=== PATIENT | male | born 1950 | race Caucasian/White ===

== ENCOUNTER 2016-07-29 18:45 | Inpatient (IN) | payer OTHER ==
[~2016-07-29] VITALS: Ht 167.6 cm; Wt 59.0 kg
[~2016-07-29 18:45] MED LIST: CEPH-368 PO; CHOL1CRY3 PO; CYCL-259 PO; DIVA500T2 PO; FLUO20CA19 PO; HYDR50CA PO; LEVE500T53 PO; MELO-190 PO; OMEP-110 PO; OXYC-302 PO; PRAZ5CAP2 PO; QUET400T4 PO; [UNRECOGNIZED DRUG - OTHER] PO
[2016-07-29] MEDS ORDERED: SODIUM CHLORIDE 0.9% 1,000ML IVBOLUS ONE (19:00)
[2016-07-29] MEDS ORDERED: HYDROmorphone 1 MG/ML, 1ML ONE ×2 (19:00→21:37)
[2016-07-29] MEDS ORDERED: LORazepam 2 MG/ML, 1ML IVPush ONE (19:00)
[2016-07-29] MEDS ORDERED: LORazepam 2 MG/ML, 1ML ONE (19:00)
[2016-07-29] MEDS: HYDROmorphone 1 MG/ML, 1ML IVPush PRN ×2 (19:04→21:59)
[2016-07-29 19:54] LABS: BLOOD UREA NITROGEN 11 mg/dL (7-18)
[2016-07-29] MEDS ORDERED: SODIUM CHLORIDE FLUSH 10ML SYR IVF ONE (20:00)
[2016-07-29 20:01] LABS: ASPARTATE AMINO TRANSFERASE 23 U/L (15-37)
[2016-07-29 20:03] LABS: IS PT STATUS REG ER OR PRE ER? YES
[2016-07-30] MEDS ORDERED: LORazepam 2 MG/ML, 1ML IV PRN ×4
[2016-07-30] MEDS ORDERED: ONDANSETRON 2MG/ML, 2ML IV PRN
[2016-07-30] MEDS ORDERED: LEVETIRACETAM 100 MG/ML, 5ML IVPB ONE
[2016-07-30] MEDS ORDERED: HYDROcodone/APAP 5/325 TABLET PO PRN (00:30)
[2016-07-30 01:17] LABS: DAU SCREEN DISCLAIMER
[2016-07-30 01:26] VITALS: BP 144/89
[2016-07-30] MEDS ORDERED: LEVETIRACETAM 500 MG in SODIUM CHLORIDE 0.9% 100 ML IV ONE (01:30)
[2016-07-30 02:00] VITALS: BP 140/88
[2016-07-30] MEDS: HEPARIN 5,000 UNITS/ML, 1ML SQ SCH ×3 (02:19→17:18)
[2016-07-30] MEDS: POTASSIUM CHLORIDE 10 MEQ, MAGNESIUM SULFATE 1 GM, THIAMINE 100 MG, FOLIC ACID 1 MG, MV... IV SCH (04:29)
[2016-07-30 07:06] VITALS: BP 134/75
[2016-07-30 09:47] LABS: BLOOD UREA NITROGEN 11 mg/dL (7-18)
[2016-07-30] MEDS: FLUOXETINE 20 MG CAPSULE PO SCH (09:48)
[2016-07-30] MEDS: LEVETIRACETAM 500 MG TABLET PO SCH ×2 (09:49→21:08)
[2016-07-30] MEDS: DIVALPROEX 500 MG TABLET.DR PO SCH (09:49)
[2016-07-30] MEDS: OMEPRAZOLE 20 MG CAPSULE.DR PO SCH (09:49)
[2016-07-30 12:45] VITALS: BP 137/86
[2016-07-30] MEDS: MORPHINE SULFATE 4 MG/ML, 1ML IVPush PRN ×2 (13:49→16:40)
[2016-07-30 18:52] VITALS: BP 118/79
[2016-07-30] MEDS: PRAZOSIN 5 MG CAPSULE PO SCH ×2 (21:00)
[2016-07-30] MEDS: LORazepam 2 MG/ML, 1ML IV PRN (21:09)
[2016-07-31] MEDS: DIPHENHYDRAMINE 50 MG CAPSULE PO PRN
[2016-07-31] MEDS: LORazepam 2 MG/ML, 1ML IV PRN ×2 (00:43→09:49)
[2016-07-31 01:10] VITALS: BP 95/58
[2016-07-31] MEDS: MORPHINE SULFATE 4 MG/ML, 1ML IVPush PRN (02:53)
[2016-07-31] MEDS: POTASSIUM CHLORIDE 10 MEQ, MAGNESIUM SULFATE 1 GM, THIAMINE 100 MG, FOLIC ACID 1 MG, MV... IV SCH (04:34)
[2016-07-31 05:30] LABS: BLOOD UREA NITROGEN 15 mg/dL (7-18)
[2016-07-31 08:45] VITALS: BP 106/71
[2016-07-31] MEDS: FLUOXETINE 20 MG CAPSULE PO SCH (09:34)
[2016-07-31] MEDS: LEVETIRACETAM 500 MG TABLET PO SCH ×2 (09:34→20:33)
[2016-07-31] MEDS: OMEPRAZOLE 20 MG CAPSULE.DR PO SCH (09:34)
[2016-07-31] MEDS: DIVALPROEX 500 MG TABLET.DR PO SCH (09:35)
[2016-07-31] MEDS: HEPARIN 5,000 UNITS/ML, 1ML SQ SCH ×3 (09:35→16:22)
[2016-07-31 12:41] VITALS: BP 103/69
[2016-07-31] MEDS ORDERED: LORazepam 1MG TABLET PO PRN (14:00)
[2016-07-31 20:00] VITALS: BP 107/63
[2016-07-31] MEDS: PRAZOSIN 5 MG CAPSULE PO SCH (20:32)
[2016-08-01] MEDS: HEPARIN 5,000 UNITS/ML, 1ML SQ SCH ×3 (00:01→18:44)
[2016-08-01 01:55] VITALS: BP 103/60
[2016-08-01] MEDS: POTASSIUM CHLORIDE 10 MEQ, MAGNESIUM SULFATE 1 GM, THIAMINE 100 MG, FOLIC ACID 1 MG, MV... IV SCH (05:15)
[2016-08-01] MEDS ORDERED: MAGNESIUM SULFATE PMX 2GM/50ML 50 ML IV ONE (08:30)
[2016-08-01] MEDS ORDERED: POTASSIUM CHLORIDE 20 MEQ TAB.ER.PRT PO ONE (08:30)
[2016-08-01 08:47] VITALS: BP 110/69
[2016-08-01] MEDS: KETOROLAC 30 MG/1 ML IVPush PRN ×2 (08:51→18:44)
[2016-08-01] MEDS: FLUOXETINE 20 MG CAPSULE PO SCH (10:33)
[2016-08-01] MEDS: DIVALPROEX 500 MG TABLET.DR PO SCH (10:34)
[2016-08-01] MEDS: LEVETIRACETAM 500 MG TABLET PO SCH ×2 (10:34→22:23)
[2016-08-01] MEDS: OMEPRAZOLE 20 MG CAPSULE.DR PO SCH (10:34)
[2016-08-01] MEDS: HYDROcodone/APAP 10/325 MG TABLET PO PRN ×3 (10:47→20:16)
[2016-08-01] MEDS: LORazepam 0.5MG TABLET PO PRN ×2 (11:56)
[2016-08-01 12:52] VITALS: BP 98/64
[2016-08-01 18:40] VITALS: BP 99/62
[2016-08-01] MEDS: PRAZOSIN 5 MG CAPSULE PO SCH (21:00)
[2016-08-01] MEDS: NICOTINE 21 MG/24 HR PATCH.TD24 TD SCH (22:23)
[2016-08-01] MEDS: DIPHENHYDRAMINE 50 MG CAPSULE PO PRN (22:35)
[2016-08-02 01:08] VITALS: BP 93/62
[2016-08-02] MEDS: HYDROcodone/APAP 10/325 MG TABLET PO PRN ×5 (05:01→22:45)
[2016-08-02] MEDS: HEPARIN 5,000 UNITS/ML, 1ML SQ SCH ×3 (05:01→21:16)
[2016-08-02 09:00] VITALS: BP 95/53
[2016-08-02] MEDS: LEVETIRACETAM 500 MG TABLET PO SCH ×2 (09:21→21:18)
[2016-08-02] MEDS: KETOROLAC 30 MG/1 ML IVPush PRN (09:21)
[2016-08-02] MEDS: DIVALPROEX 500 MG TABLET.DR PO SCH (09:21)
[2016-08-02] MEDS: OMEPRAZOLE 20 MG CAPSULE.DR PO SCH (09:21)
[2016-08-02] MEDS: FLUOXETINE 20 MG CAPSULE PO SCH (09:21)
[2016-08-02 14:05] VITALS: BP 102/64
[2016-08-02] MEDS: DOCUSATE 100 MG CAPSULE PO PRN (14:15)
[2016-08-02 19:19] VITALS: BP 97/55
[2016-08-02] MEDS: PRAZOSIN 5 MG CAPSULE PO SCH (21:00)
[2016-08-02] MEDS: NICOTINE 21 MG/24 HR PATCH.TD24 TD SCH (21:18)
[2016-08-02] MEDS: DIPHENHYDRAMINE 50 MG CAPSULE PO PRN (22:45)
[2016-08-03 01:07] VITALS: BP 97/52
[2016-08-03] MEDS: HYDROcodone/APAP 10/325 MG TABLET PO PRN ×5 (04:57→21:27)
[2016-08-03] MEDS: HEPARIN 5,000 UNITS/ML, 1ML SQ SCH ×3 (04:57→21:20)
[2016-08-03] MEDS: OMEPRAZOLE 20 MG CAPSULE.DR PO SCH (08:36)
[2016-08-03] MEDS: DIVALPROEX 500 MG TABLET.DR PO SCH (08:36)
[2016-08-03] MEDS: FLUOXETINE 20 MG CAPSULE PO SCH (08:37)
[2016-08-03] MEDS: LEVETIRACETAM 500 MG TABLET PO SCH ×2 (08:37→21:19)
[2016-08-03 08:52] VITALS: BP 111/69
[2016-08-03 14:39] VITALS: BP 108/72
[2016-08-03] MEDS: KETOROLAC 30 MG/1 ML IVPush PRN (16:35)
[2016-08-03 19:11] VITALS: BP 99/62
[2016-08-03] MEDS: PRAZOSIN 5 MG CAPSULE PO SCH (21:00)
[2016-08-03] MEDS: NICOTINE 21 MG/24 HR PATCH.TD24 TD SCH (21:20)
[2016-08-04] MEDS: KETOROLAC 30 MG/1 ML IVPush PRN ×3 (00:58→18:17)
[2016-08-04 01:04] VITALS: BP 106/55
[2016-08-04] MEDS: HYDROcodone/APAP 10/325 MG TABLET PO PRN ×5 (05:21→22:06)
[2016-08-04] MEDS: HEPARIN 5,000 UNITS/ML, 1ML SQ SCH ×3 (05:22→22:06)
[2016-08-04 07:34] VITALS: BP 90/52
[2016-08-04] MEDS: FLUOXETINE 20 MG CAPSULE PO SCH (09:12)
[2016-08-04] MEDS: OMEPRAZOLE 20 MG CAPSULE.DR PO SCH (09:16)
[2016-08-04] MEDS: DIVALPROEX 500 MG TABLET.DR PO SCH (09:16)
[2016-08-04] MEDS: LEVETIRACETAM 500 MG TABLET PO SCH ×2 (09:17→20:38)
[2016-08-04 14:38] VITALS: BP 103/62
[2016-08-04 19:26] VITALS: BP 92/53
[2016-08-04] MEDS: PRAZOSIN 5 MG CAPSULE PO SCH (20:38)
[2016-08-04] MEDS: NICOTINE 21 MG/24 HR PATCH.TD24 TD SCH (20:38)
[2016-08-05 01:12] VITALS: BP 92/54
[2016-08-05] MEDS: KETOROLAC 30 MG/1 ML IVPush PRN ×3 (02:11→21:24)
[2016-08-05] MEDS: HYDROcodone/APAP 10/325 MG TABLET PO PRN ×4 (05:54→19:40)
[2016-08-05] MEDS: HEPARIN 5,000 UNITS/ML, 1ML SQ SCH ×3 (05:54→21:29)
[2016-08-05 07:48] VITALS: BP 100/65
[2016-08-05] MEDS: LEVETIRACETAM 500 MG TABLET PO SCH ×2 (09:53→21:26)
[2016-08-05] MEDS: FLUOXETINE 20 MG CAPSULE PO SCH (09:53)
[2016-08-05] MEDS: DIVALPROEX 500 MG TABLET.DR PO SCH (09:54)
[2016-08-05] MEDS: OMEPRAZOLE 20 MG CAPSULE.DR PO SCH (09:54)
[2016-08-05 14:31] VITALS: BP 105/67
[2016-08-05 19:48] VITALS: BP 97/64
[2016-08-05] MEDS: PRAZOSIN 5 MG CAPSULE PO SCH (21:00)
[2016-08-05] MEDS: NICOTINE 21 MG/24 HR PATCH.TD24 TD SCH (21:23)
[2016-08-05] MEDS: DIPHENHYDRAMINE 50 MG CAPSULE PO PRN (21:27)
[2016-08-06 03:55] VITALS: BP 99/62
[2016-08-06] MEDS: KETOROLAC 30 MG/1 ML IVPush PRN (04:50)
[2016-08-06] MEDS: HYDROcodone/APAP 10/325 MG TABLET PO PRN ×5 (04:50→22:40)
[2016-08-06] MEDS: HEPARIN 5,000 UNITS/ML, 1ML SQ SCH ×3 (04:52→22:42)
[2016-08-06 08:00] VITALS: BP 101/57
[2016-08-06] MEDS: LEVETIRACETAM 500 MG TABLET PO SCH ×2 (09:21→22:41)
[2016-08-06] MEDS: OMEPRAZOLE 20 MG CAPSULE.DR PO SCH (09:21)
[2016-08-06] MEDS: FLUOXETINE 20 MG CAPSULE PO SCH (09:21)
[2016-08-06] MEDS: DIVALPROEX 500 MG TABLET.DR PO SCH (09:22)
[2016-08-06] MEDS: DOCUSATE 100 MG CAPSULE PO PRN (09:22)
[2016-08-06 14:00] VITALS: BP 110/71
[2016-08-06 19:18] VITALS: BP 100/61
[2016-08-06] MEDS: PRAZOSIN 5 MG CAPSULE PO SCH (21:00)
[2016-08-06] MEDS: NICOTINE 21 MG/24 HR PATCH.TD24 TD SCH (22:40)
[2016-08-06] MEDS: DIPHENHYDRAMINE 50 MG CAPSULE PO PRN (22:41)
[2016-08-07 02:07] VITALS: BP 109/64
[2016-08-07] MEDS: HEPARIN 5,000 UNITS/ML, 1ML SQ SCH ×3 (04:39→22:15)
[2016-08-07] MEDS: HYDROcodone/APAP 10/325 MG TABLET PO PRN ×4 (04:39→18:13)
[2016-08-07 08:00] VITALS: BP 108/68
[2016-08-07] MEDS: LEVETIRACETAM 500 MG TABLET PO SCH ×2 (08:39→22:15)
[2016-08-07] MEDS: FLUOXETINE 20 MG CAPSULE PO SCH (08:39)
[2016-08-07] MEDS: OMEPRAZOLE 20 MG CAPSULE.DR PO SCH (08:39)
[2016-08-07] MEDS: DOCUSATE 100 MG CAPSULE PO PRN (08:40)
[2016-08-07] MEDS: DIVALPROEX 500 MG TABLET.DR PO SCH (08:40)
[2016-08-07] MEDS ORDERED: POLYETHYLENE GLYCOL 17 GM PACKET ONE (13:59)
[2016-08-07 14:00] VITALS: BP 100/66
[2016-08-07] MEDS ORDERED: LACTULOSE 20 GM/30 ML UDC PO PRN (14:00)
[2016-08-07] MEDS ORDERED: POLYETHYLENE GLYCOL 17 GM PACKET PO PRN (14:00)
[2016-08-07] MEDS ORDERED: LORazepam 1MG TABLET ONE (16:04)
[2016-08-07] MEDS: LORazepam 0.5MG TABLET PO PRN (16:10)
[2016-08-07] MEDS ORDERED: MORPHINE SULFATE 4 MG/ML, 1ML ONE (17:16)
[2016-08-07] MEDS: morphine SULFATE 10 MG/ML, 1ML IVPush PRN ×2 (17:22→22:09)
[2016-08-07] MEDS ORDERED: LORazepam 0.5MG TABLET PO PRN (19:00)
[2016-08-07 20:56] VITALS: BP 100/61
[2016-08-07] MEDS: NICOTINE 21 MG/24 HR PATCH.TD24 TD SCH (22:14)
[2016-08-07] MEDS: PRAZOSIN 5 MG CAPSULE PO SCH (22:15)
[2016-08-08] MEDS: HYDROcodone/APAP 10/325 MG TABLET PO PRN ×4 (02:31→20:35)
[2016-08-08 03:47] VITALS: BP 96/55
[2016-08-08] MEDS: morphine SULFATE 10 MG/ML, 1ML IVPush PRN ×3 (05:28→15:21)
[2016-08-08] MEDS: HEPARIN 5,000 UNITS/ML, 1ML SQ SCH ×3 (05:29→21:36)
[2016-08-08] MEDS: DIVALPROEX 500 MG TABLET.DR PO SCH (08:30)
[2016-08-08] MEDS: FLUOXETINE 20 MG CAPSULE PO SCH (08:30)
[2016-08-08] MEDS: OMEPRAZOLE 20 MG CAPSULE.DR PO SCH (08:30)
[2016-08-08] MEDS: DOCUSATE 100 MG CAPSULE PO PRN (08:30)
[2016-08-08] MEDS: LEVETIRACETAM 500 MG TABLET PO SCH ×2 (08:30→21:36)
[2016-08-08 08:39] VITALS: BP 114/64
[2016-08-08] MEDS ORDERED: DIPHENHYDRAMINE 25 MG CAPSULE PO PRN (11:30)
[2016-08-08] MEDS ORDERED: MORPHINE SULFATE 4 MG/ML, 1ML ONE (15:17)
[2016-08-08 15:20] VITALS: BP 118/75
[2016-08-08 18:56] VITALS: BP 115/71
[2016-08-08 19:08] VITALS: BP 115/71
[2016-08-08] MEDS: PRAZOSIN 5 MG CAPSULE PO SCH (21:00)
[2016-08-08] MEDS: NICOTINE 21 MG/24 HR PATCH.TD24 TD SCH (21:36)
[2016-08-09 01:41] VITALS: BP 97/65
[2016-08-09] MEDS: HEPARIN 5,000 UNITS/ML, 1ML SQ SCH ×2 (04:41→13:00)
[2016-08-09] MEDS: HYDROcodone/APAP 10/325 MG TABLET PO PRN (05:55)
[2016-08-09 06:56] VITALS: BP 139/63
[2016-08-09] MEDS ORDERED: NICO1PAT5 TD (08:37)
[2016-08-09] MEDS ORDERED: POLY17PO5 PO (08:37)
[2016-08-09] MEDS: OMEPRAZOLE 20 MG CAPSULE.DR PO SCH (08:47)
[2016-08-09] MEDS: FLUOXETINE 20 MG CAPSULE PO SCH (08:47)
[2016-08-09] MEDS: DIVALPROEX 500 MG TABLET.DR PO SCH (08:47)
[2016-08-09] MEDS: LEVETIRACETAM 500 MG TABLET PO SCH (08:47)
== END 2016-08-09 13:45 | disposition home or self-care (01) | DRG 895 ==
LOC: ED 21:39 → EDIP 21:44 → 4WST 07-30 01:03
PROVIDERS: ADMIT Internal Medicine; ATTEND Internal Medicine
PROC: 2W38X1Z Immobilization of Right Upper Extremity using Splint (ICD-10-PCS; principal; 2016-07-29)
PROC: HZ34ZZZ Individual Counseling for Substance Abuse Treatment, Interpersonal (ICD-10-PCS; 2016-07-29)
PROC: HZ2ZZZZ Detoxification Services for Substance Abuse Treatment (ICD-10-PCS; 2016-07-29)
DX: F10.229 Alcohol dependence with intoxication, unspecified (principal); F32.3 Major depressive disorder, single episode, severe with psychotic features; S42.211A Unspecified displaced fracture of surgical neck of right humerus, initial encounter for closed fracture; S52.611A Displaced fracture of right ulna styloid process, initial encounter for closed fracture; S52.501A Unspecified fracture of the lower end of right radius, initial encounter for closed fracture; F10.239 Alcohol dependence with withdrawal, unspecified; F10.27 Alcohol dependence with alcohol-induced persisting dementia; F17.210 Nicotine dependence, cigarettes, uncomplicated; F43.9 Reaction to severe stress, unspecified; D72.829 Elevated white blood cell count, unspecified; G40.909 Epilepsy, unspecified, not intractable, without status epilepticus; G89.11 Acute pain due to trauma; G93.9 Disorder of brain, unspecified; J32.9 Chronic sinusitis, unspecified; M46.90 Unspecified inflammatory spondylopathy, site unspecified; S09.90XA Unspecified injury of head, initial encounter; W18.30XA Fall on same level, unspecified, initial encounter; Z80.1 Family history of malignant neoplasm of trachea, bronchus and lung; Z83.3 Family history of diabetes mellitus; Z88.6 Allergy status to analgesic agent; Z71.41 Alcohol abuse counseling and surveillance of alcoholic
CPT/HCPCS: 29105; 36415; 70450; 71010; 72125; 80048; 80053; 80307; 82542; 83735; 83880; 84100; 84484; 85025; 85610; 85730; 93005; 96361; 96374; 96375; J1170; J1644; J1885; J1953; J3411; J3475; J3480; J2060; J2270; J7030; Q0163

== ENCOUNTER 2016-08-18 12:20 | Day surgery (SDC) | payer OTHER ==
[~2016-08-18] VITALS: Ht 166.4 cm; Wt 52.0 kg
[~2016-08-18 12:20] MED LIST changes: +BUPIVACAINE/PF 0.5% ONE; +NICO1PAT5 TD; +POLY17PO5 PO
[2016-08-18 12:57] VITALS: BP 128/80
[2016-08-18] MEDS ORDERED: LACTATED RINGERS 1,000 ML IV SCH (13:10)
[2016-08-18] MEDS ORDERED: MIDAZOLAM 1 MG/ML, 2ML ONE (14:37)
[2016-08-18] MEDS ORDERED: FENTANYL PF 250 MCG/5ML ONE (14:37)
[2016-08-18] MEDS ORDERED: LIDOCAINE/PF 1%, 30ML ONE (14:51)
[2016-08-18] MEDS ORDERED: BUPIVACAINE/PF 0.5% ONE (14:51)
[2016-08-18] MEDS ORDERED: PROPOFOL 10 MG/ML, 20ML ONE (15:57)
[2016-08-18] MEDS ORDERED: ONDANSETRON 2MG/ML, 2ML ONE (15:57)
[2016-08-18] MEDS ORDERED: DEXAMETHASONE 4 MG/ML, 1ML ONE (15:57)
[2016-08-18] MEDS ORDERED: CEFAZOLIN 1,000 MG ONE (15:57)
[2016-08-18] MEDS ORDERED: OXYcodone 5 MG/5 ML ORAL.SOL UDC ONE (16:56)
[2016-08-18] MEDS ORDERED: ACETAMINOPHEN 650 MG/20.3 ML UDC ONE (16:56)
[2016-08-18] MEDS ORDERED: HYDROmorphone 1 MG/ML, 1ML ONE (16:59)
[2016-08-18] MEDS ORDERED: OXYcodone 5 MG/5 ML ORAL.SOL UDC PO PRN (17:00)
[2016-08-18] MEDS ORDERED: ACETAMINOPHEN 325 MG TABLET PO PRN (17:00)
[2016-08-18] MEDS ORDERED: FENTANYL PF 100 MCG/2ML IV PRN (17:00)
[2016-08-18] MEDS ORDERED: ALBUTEROL/IPRATROPIUM 2.5MG/0.5MG, 3 ML NPPB PRN (17:00)
[2016-08-18] MEDS ORDERED: MIDAZOLAM 1 MG/ML, 2ML IV PRN (17:00)
[2016-08-18] MEDS ORDERED: ONDANSETRON 2MG/ML, 2ML IVPush PRN (17:00)
[2016-08-18] MEDS ORDERED: PROMETHAZINE 25 MG/ML, 1ML IV PRN (17:00)
[2016-08-18] MEDS ORDERED: LABETALOL 5MG/ML, 20ML IV PRN (17:00)
[2016-08-18] MEDS ORDERED: hydrALAzine 20 MG/ML, 1ML IV PRN (17:00)
[2016-08-18] MEDS ORDERED: HYDROmorphone 1 MG/ML, 1ML IV PRN (17:00)
[2016-08-18] MEDS ORDERED: MEPERIDINE/PF 25MG/0.5ML IVPush PRN (17:00)
== END 2016-08-18 20:44 | disposition short-term general hospital (02) ==
LOC: OUT 12:20 → 4NOR 17:46 → OUT 20:44
PROVIDERS: ATTEND Orthopaedic Surgery
DX: Z47.2 Encounter for removal of internal fixation device (principal); J44.9 Chronic obstructive pulmonary disease, unspecified; K21.9 Gastro-esophageal reflux disease without esophagitis; Z87.39 Personal history of other diseases of the musculoskeletal system and connective tissue; Z88.5 Allergy status to narcotic agent; Z98.890 Other specified postprocedural states
CPT/HCPCS: 20694; 27635; J0690; J1100; J1170; J2250; J2405; J2704; J3010; J3490; J7120

== ENCOUNTER 2017-09-08 09:57 | Inpatient (IN) | payer OTHER ==
[~2017-09-08] VITALS: Ht 165.1 cm; Wt 54.0 kg
[~2017-09-08 09:57] MED LIST changes: -BUPIVACAINE/PF 0.5% ONE; -MELO-190 PO; +MELO7.5T31 PO; +NICO-487 TD; -NICO1PAT5 TD
[2017-09-08] MEDS ORDERED: SODIUM CHLORIDE FLUSH 10ML SYR IVF ONE (10:30)
[2017-09-08] MEDS ORDERED: PLEASE ENTER HEIGHT AND WEIGHT MC SCH (10:30)
[2017-09-08] MEDS ORDERED: MORPHINE SULFATE 4 MG/ML, 1ML IVPush ONE ×2 (10:30→12:30)
[2017-09-08 10:43] LABS: ALANINE AMINOTRANSFERASE 16 U/L (12-78); ALBUMIN 3.4 g/dL (3.4-5.0); ANION GAP 9 mmol/L (5-15); CALCIUM 9.1 mg/dL (8.5-10.1); CHLORIDE 107 mmol/L (98-107); CREATININE 0.75 mg/dL (0.7-1.3)
[2017-09-08 10:45] LABS: ALKALINE PHOSPHATASE 53 U/L (45-117); BILIRUBIN,TOTAL 0.5 mg/dL (0.2-1.0); TOTAL PROTEIN 6.9 g/dL (6.4-8.2)
[2017-09-08 10:49] LABS: BASOPHILS # (AUTO) 0.01 x10^3/uL (0-0.1); BASOPHILS % (AUTO) 0 % (0-1); EOSINOPHILS # (AUTO) 0.06 x10^3/uL (0-0.4); EOSINOPHILS % (AUTO) 1 % (1-7); LYMPHOCYTES # (AUTO) 2.62 x10^3/uL (1-3.4); LYMPHOCYTES % (AUTO) 39 % (22-44); MD NO; MEAN CORPUSCULAR HEMOGLOBIN 34.6 pg (27.5-34.5); MEAN CORPUSCULAR HGB CONC 34.5 g/dL (33.2-36.2); MEAN CORPUSCULAR VOLUME 100.4 fL (81-97); MEAN PLATELET VOLUME 9.2 fL (7.4-10.4); MONOCYTES # (AUTO) 0.74 x10^3/uL (0.2-0.8); MONOCYTES % (AUTO) 11 % (2-9); NEUTROPHILS # (AUTO) 3.38 x10^3/uL (1.8-6.8); NEUTROPHILS % (AUTO) 50 % (42-75); PLATELET COUNT 213 x10^3/uL (130-400); RED BLOOD COUNT 4.34 x10^6/uL (4.38-5.82); RED CELL DISTRIBUTION WIDTH 15.1 % (9.4-14.8)
[2017-09-08 11:05] LABS: INTERNATIONAL NORMALIZED RATIO 1.08 (0.93-1.1); PROTHROMBIN TIME 11.1 Seconds (9.6-11.5)
[2017-09-08] MEDS ORDERED: LIDOCAINE TOPICAL (11:09)
[2017-09-08] MEDS ORDERED: MORP15TA PO (11:09)
[2017-09-08] MEDS ORDERED: OXYC5CAP2 PO (11:09)
[2017-09-08] MEDS ORDERED: FLUO20CA8 PO (11:09)
[2017-09-08] MEDS ORDERED: LEVE500T8 PO (11:09)
[2017-09-08] MEDS ORDERED: DIVA-61 PO ×2 (11:09)
[2017-09-08] MEDS ORDERED: CLOTRIMAZOLE CREAM (11:09)
[2017-09-08] MEDS ORDERED: CHOL200040 PO (11:09)
[2017-09-08] MEDS ORDERED: IPRATROPIUM INH (11:09)
[2017-09-08] MEDS ORDERED: ACET325T26 PO (11:09)
[2017-09-08] MEDS ORDERED: ALBUTEROL INH (11:09)
[2017-09-08] MEDS ORDERED: MORPHINE SULFATE 4 MG/ML, 1ML ONE ×2 (11:37→11:57)
[2017-09-08] MEDS ORDERED: GUAIFENESIN/COD200MG-20MG/10ML LIQUID PO PRN (12:30)
[2017-09-08] MEDS ORDERED: ONDANSETRON ODT 4 MG PO PRN (12:30)
[2017-09-08] MEDS ORDERED: ONDANSETRON 2MG/ML, 2ML IVPush PRN (12:30)
[2017-09-08] MEDS ORDERED: ENALAPRILAT 1.25 MG/ML, 2ML IVPush PRN (12:30)
[2017-09-08] MEDS ORDERED: BISACODYL 10 MG SUPP PR PRN (12:30)
[2017-09-08] MEDS ORDERED: ACETAMINOPHEN 325 MG TABLET PO PRN (12:30)
[2017-09-08] MEDS ORDERED: NICOTINE 21 MG/24 HR PATCH.TD24 TD SCH (13:00)
[2017-09-08] MEDS: ACETAMINOPHEN 325 MG TABLET PO SCH ×3 (13:24→21:03)
[2017-09-08] MEDS: HEPARIN 5,000 UNITS/ML, 1ML SQ SCH ×2 (13:25→21:04)
[2017-09-08] MEDS: NICOTINE 21 MG/24 HR PATCH.TD24 TD SCH (13:25)
[2017-09-08] MEDS: SODIUM CHLORIDE 0.9% 1,000 ML IV SCH ×2 (13:25→22:48)
[2017-09-08 13:40] VITALS: BP 124/82
[2017-09-08] MEDS: ALBUTEROL/IPRATROPIUM 2.5MG/0.5MG, 3 ML NPPB SCH ×2 (15:00→18:28)
[2017-09-08 15:10] LABS: MICROSCOPIC NOT IND
[2017-09-08 15:22] LABS: CULTURE INDICATED? NO
[2017-09-08] MEDS ORDERED: ALBUTEROL/IPRATROPIUM 2.5MG/0.5MG, 3 ML HHN SCH (16:00)
[2017-09-08] MEDS: OXYcodone IR 5MG TABLET PO SCH ×2 (16:26→21:03)
[2017-09-08 19:41] VITALS: BP 100/56
[2017-09-08] MEDS ORDERED: DOCUSATE 100 MG CAPSULE PO PRN (21:00)
[2017-09-08] MEDS: morphine SULFATE 15 MG TAB.IR PO SCH (21:03)
[2017-09-08] MEDS: DIVALPROEX 500 MG TABLET.DR PO SCH (21:03)
[2017-09-08] MEDS: LEVETIRACETAM 500 MG TABLET PO SCH (21:03)
[2017-09-09] MEDS: ACETAMINOPHEN 325 MG TABLET PO SCH ×6 (01:09→20:54)
[2017-09-09 01:49] VITALS: BP 99/52
[2017-09-09] MEDS: HEPARIN 5,000 UNITS/ML, 1ML SQ SCH ×3 (05:25→20:55)
[2017-09-09 05:51] LABS: MEAN CORPUSCULAR HEMOGLOBIN 33.2 pg (27.5-34.5); MEAN CORPUSCULAR HGB CONC 32.9 g/dL (33.2-36.2); MEAN CORPUSCULAR VOLUME 101.1 fL (81-97); MEAN PLATELET VOLUME 9.6 fL (7.4-10.4); PLATELET COUNT 177 x10^3/uL (130-400); RED BLOOD COUNT 3.93 x10^6/uL (4.38-5.82); RED CELL DISTRIBUTION WIDTH 14.7 % (9.4-14.8)
[2017-09-09 05:54] LABS: ANION GAP 6 mmol/L (5-15); CALCIUM 8.8 mg/dL (8.5-10.1); CHLORIDE 108 mmol/L (98-107); CREATININE 0.77 mg/dL (0.7-1.3)
[2017-09-09 06:20] LABS: MD YES
[2017-09-09 06:22] LABS: EOS#(MANUAL) 0.06 x10^3/uL (0.0-0.4); EOS% (MANUAL) 1 % (1-7); LYMPH#(MANUAL) 4.07 x10^3/uL (1-3.4); LYMPHS% (MANUAL) 69 % (22-44); MONOS#(MANUAL) 0.59 x10^3/uL (0.3-2.7); MONOS% (MANUAL) 10 % (2-9); SEG#(MANUAL) 1.18 x10^3/uL (1.8-6.8); SEGS% (MANUAL) 20 % (42-75)
[2017-09-09 06:26] LABS: <PLATELET ESTIMATE> ADEQUATE; <PLT MORPHOLOGY> NORMAL PLT MORPH
[2017-09-09] MEDS: ALBUTEROL/IPRATROPIUM 2.5MG/0.5MG, 3 ML NPPB SCH ×4 (06:44→19:15)
[2017-09-09 07:01] VITALS: BP 88/49
[2017-09-09] MEDS: DIVALPROEX 500 MG TABLET.DR PO SCH ×2 (08:23→20:55)
[2017-09-09] MEDS: LEVETIRACETAM 500 MG TABLET PO SCH ×2 (08:23→20:55)
[2017-09-09] MEDS: FLUOXETINE HCL 20 MG CAPSULE PO SCH (08:23)
[2017-09-09] MEDS: morphine SULFATE 15 MG TAB.IR PO SCH ×2 (08:24→18:10)
[2017-09-09] MEDS: CHOLECALCIFEROL 1,000 UNIT TABLET PO SCH (08:24)
[2017-09-09] MEDS: SENNA/DOCUSATE TABLET PO SCH (08:24)
[2017-09-09] MEDS: OXYcodone IR 5MG TABLET PO SCH ×3 (08:25→20:55)
[2017-09-09] MEDS: SODIUM CHLORIDE 0.9% 1,000 ML IV SCH ×2 (10:54→20:59)
[2017-09-09 13:48] VITALS: BP 89/52
[2017-09-09] MEDS: NICOTINE 21 MG/24 HR PATCH.TD24 TD SCH (14:38)
[2017-09-09 18:55] VITALS: BP 96/61
[2017-09-10 00:31] VITALS: BP 97/56
[2017-09-10] MEDS: ACETAMINOPHEN 325 MG TABLET PO SCH ×6 (02:31→22:07)
[2017-09-10] MEDS: HEPARIN 5,000 UNITS/ML, 1ML SQ SCH ×3 (06:15→22:06)
[2017-09-10] MEDS: morphine SULFATE 15 MG TAB.IR PO SCH ×2 (06:15→18:27)
[2017-09-10] MEDS: SODIUM CHLORIDE 0.9% 1,000 ML IV SCH ×3 (06:15→22:00)
[2017-09-10 07:15] VITALS: BP 123/71
[2017-09-10] MEDS: ALBUTEROL/IPRATROPIUM 2.5MG/0.5MG, 3 ML NPPB SCH ×4 (07:40→22:15)
[2017-09-10] MEDS: DIVALPROEX 500 MG TABLET.DR PO SCH ×2 (08:32→22:07)
[2017-09-10] MEDS: FLUOXETINE HCL 20 MG CAPSULE PO SCH (08:32)
[2017-09-10] MEDS: LEVETIRACETAM 500 MG TABLET PO SCH ×2 (08:32→22:07)
[2017-09-10] MEDS: OXYcodone IR 5MG TABLET PO SCH ×3 (08:33→22:07)
[2017-09-10] MEDS: CHOLECALCIFEROL 1,000 UNIT TABLET PO SCH (08:33)
[2017-09-10] MEDS: SENNA/DOCUSATE TABLET PO SCH (08:33)
[2017-09-10 13:10] VITALS: BP 94/64
[2017-09-10] MEDS: NICOTINE 21 MG/24 HR PATCH.TD24 TD SCH (13:12)
[2017-09-10] MEDS ORDERED: HALOPERIDOL 5 MG/ML ONE (17:42)
[2017-09-10] MEDS ORDERED: HALOPERIDOL 5 MG/ML IM ONE (18:00)
[2017-09-10 20:05] VITALS: BP 100/65
[2017-09-11 02:30] VITALS: BP 119/72
[2017-09-11] MEDS: ACETAMINOPHEN 325 MG TABLET PO SCH ×5 (03:22→20:43)
[2017-09-11] MEDS: HEPARIN 5,000 UNITS/ML, 1ML SQ SCH ×3 (06:17→20:44)
[2017-09-11] MEDS: morphine SULFATE 15 MG TAB.IR PO SCH ×2 (06:17→18:15)
[2017-09-11 07:15] VITALS: BP 120/70
[2017-09-11] MEDS: ALBUTEROL/IPRATROPIUM 2.5MG/0.5MG, 3 ML NPPB SCH ×4 (07:15→19:06)
[2017-09-11] MEDS: CHOLECALCIFEROL 1,000 UNIT TABLET PO SCH (08:32)
[2017-09-11] MEDS: DIVALPROEX 500 MG TABLET.DR PO SCH ×2 (08:32→20:43)
[2017-09-11] MEDS: FLUOXETINE HCL 20 MG CAPSULE PO SCH (08:32)
[2017-09-11] MEDS: OXYcodone IR 5MG TABLET PO SCH ×3 (08:32→20:43)
[2017-09-11] MEDS: LEVETIRACETAM 500 MG TABLET PO SCH ×2 (08:32→20:43)
[2017-09-11] MEDS: SENNA/DOCUSATE TABLET PO SCH (08:33)
[2017-09-11 13:14] VITALS: BP 109/64
[2017-09-11] MEDS: NICOTINE 21 MG/24 HR PATCH.TD24 TD SCH (14:47)
[2017-09-11 20:00] VITALS: BP 103/6
[2017-09-12 01:03] VITALS: BP 102/64
[2017-09-12] MEDS: ACETAMINOPHEN 325 MG TABLET PO SCH ×7 (02:13→22:55)
[2017-09-12] MEDS: morphine SULFATE 15 MG TAB.IR PO SCH ×2 (05:23→18:10)
[2017-09-12] MEDS: HEPARIN 5,000 UNITS/ML, 1ML SQ SCH ×3 (05:23→20:13)
[2017-09-12] MEDS: ALBUTEROL/IPRATROPIUM 2.5MG/0.5MG, 3 ML NPPB SCH ×4 (06:31→19:43)
[2017-09-12 07:15] VITALS: BP 97/57
[2017-09-12] MEDS: LEVETIRACETAM 500 MG TABLET PO SCH ×2 (08:04→19:53)
[2017-09-12] MEDS: DIVALPROEX 500 MG TABLET.DR PO SCH ×2 (08:04→19:53)
[2017-09-12] MEDS: OXYcodone IR 5MG TABLET PO SCH ×3 (08:05→20:13)
[2017-09-12] MEDS: SENNA/DOCUSATE TABLET PO SCH (08:05)
[2017-09-12] MEDS: CHOLECALCIFEROL 1,000 UNIT TABLET PO SCH (08:05)
[2017-09-12] MEDS: FLUOXETINE HCL 20 MG CAPSULE PO SCH (08:05)
[2017-09-12] MEDS: NICOTINE 21 MG/24 HR PATCH.TD24 TD SCH (12:59)
[2017-09-12 13:36] VITALS: BP 93/66
[2017-09-12 19:05] VITALS: BP 96/62
[2017-09-13 01:25] VITALS: BP 96/59
[2017-09-13] MEDS: ACETAMINOPHEN 325 MG TABLET PO SCH ×6 (03:03→23:30)
[2017-09-13] MEDS: HEPARIN 5,000 UNITS/ML, 1ML SQ SCH ×3 (04:47→20:49)
[2017-09-13] MEDS: morphine SULFATE 15 MG TAB.IR PO SCH ×2 (06:04→17:19)
[2017-09-13] MEDS: ALBUTEROL/IPRATROPIUM 2.5MG/0.5MG, 3 ML NPPB SCH ×4 (06:11→19:06)
[2017-09-13 07:35] VITALS: BP 97/62
[2017-09-13] MEDS: DIVALPROEX 500 MG TABLET.DR PO SCH ×2 (07:50→20:48)
[2017-09-13] MEDS: CHOLECALCIFEROL 1,000 UNIT TABLET PO SCH (07:50)
[2017-09-13] MEDS: LEVETIRACETAM 500 MG TABLET PO SCH ×2 (07:50→20:48)
[2017-09-13] MEDS: FLUOXETINE HCL 20 MG CAPSULE PO SCH (07:51)
[2017-09-13] MEDS: OXYcodone IR 5MG TABLET PO SCH ×3 (07:51→20:48)
[2017-09-13] MEDS: SENNA/DOCUSATE TABLET PO SCH (07:54)
[2017-09-13] MEDS: NICOTINE 21 MG/24 HR PATCH.TD24 TD SCH (13:30)
[2017-09-13 15:05] VITALS: BP 103/67
[2017-09-13 20:38] VITALS: BP 95/61
[2017-09-14 01:40] VITALS: BP 96/63
[2017-09-14] MEDS: ACETAMINOPHEN 325 MG TABLET PO SCH ×6 (02:51→23:00)
[2017-09-14] MEDS: HEPARIN 5,000 UNITS/ML, 1ML SQ SCH ×3 (05:10→21:23)
[2017-09-14] MEDS: morphine SULFATE 15 MG TAB.IR PO SCH ×2 (05:10→17:30)
[2017-09-14] MEDS: ALBUTEROL/IPRATROPIUM 2.5MG/0.5MG, 3 ML NPPB SCH ×4 (06:58→19:33)
[2017-09-14 07:57] VITALS: BP 104/68
[2017-09-14] MEDS: LEVETIRACETAM 500 MG TABLET PO SCH ×2 (08:56→21:23)
[2017-09-14] MEDS: SENNA/DOCUSATE TABLET PO SCH (08:56)
[2017-09-14] MEDS: DIVALPROEX 500 MG TABLET.DR PO SCH ×2 (08:56→21:24)
[2017-09-14] MEDS: OXYcodone IR 5MG TABLET PO SCH ×3 (08:57→21:24)
[2017-09-14] MEDS: CHOLECALCIFEROL 1,000 UNIT TABLET PO SCH (08:57)
[2017-09-14] MEDS: FLUOXETINE HCL 20 MG CAPSULE PO SCH (08:57)
[2017-09-14] MEDS: NICOTINE 21 MG/24 HR PATCH.TD24 TD SCH (12:09)
[2017-09-14 14:13] VITALS: BP 96/65
[2017-09-14 19:59] VITALS: BP 102/66
[2017-09-15 00:42] VITALS: BP 102/68
[2017-09-15] MEDS: ACETAMINOPHEN 325 MG TABLET PO SCH ×3 (03:00→10:48)
[2017-09-15] MEDS: morphine SULFATE 15 MG TAB.IR PO SCH (05:39)
[2017-09-15] MEDS: HEPARIN 5,000 UNITS/ML, 1ML SQ SCH ×2 (05:39→12:21)
[2017-09-15] MEDS: ALBUTEROL/IPRATROPIUM 2.5MG/0.5MG, 3 ML NPPB SCH ×2 (06:57→10:43)
[2017-09-15 07:04] VITALS: BP 97/63
[2017-09-15] MEDS: FLUOXETINE HCL 20 MG CAPSULE PO SCH (08:07)
[2017-09-15] MEDS: OXYcodone IR 5MG TABLET PO SCH (08:07)
[2017-09-15] MEDS: CHOLECALCIFEROL 1,000 UNIT TABLET PO SCH (08:07)
[2017-09-15] MEDS: SENNA/DOCUSATE TABLET PO SCH (08:07)
[2017-09-15] MEDS: LEVETIRACETAM 500 MG TABLET PO SCH (08:07)
[2017-09-15] MEDS: DIVALPROEX 500 MG TABLET.DR PO SCH (08:07)
[2017-09-15] MEDS ORDERED: FLUO20CA8 PO (11:13)
[2017-09-15] MEDS ORDERED: LEVE500T8 PO (11:13)
[2017-09-15] MEDS ORDERED: DIVA-61 PO ×2 (11:13)
[2017-09-15] MEDS ORDERED: CHOL200040 PO (11:13)
[2017-09-15] MEDS ORDERED: ACET325T26 PO (11:13)
[2017-09-15] MEDS: NICOTINE 21 MG/24 HR PATCH.TD24 TD SCH (12:21)
== END 2017-09-15 13:51 | disposition home health service (06) | DRG 923 ==
LOC: ED 11:14 → EDIP 11:38 → 4WST 12:40 → DCLOUNGE 09-15 13:40
PROVIDERS: ADMIT Internal Medicine; ATTEND Internal Medicine
DX: T67.5XXA Heat exhaustion, unspecified, initial encounter (principal); F10.20 Alcohol dependence, uncomplicated; F32.9 Major depressive disorder, single episode, unspecified; S20.211A Contusion of right front wall of thorax, initial encounter; G40.909 Epilepsy, unspecified, not intractable, without status epilepticus; W18.30XA Fall on same level, unspecified, initial encounter; Y93.01 Activity, walking, marching and hiking; K74.60 Unspecified cirrhosis of liver; G89.29 Other chronic pain; M25.571 Pain in right ankle and joints of right foot; M25.572 Pain in left ankle and joints of left foot; F12.90 Cannabis use, unspecified, uncomplicated; Z66 Do not resuscitate; R29.6 Repeated falls; Y90.9 Presence of alcohol in blood, level not specified; G25.0 Essential tremor; F43.10 Post-traumatic stress disorder, unspecified; K59.00 Constipation, unspecified; E55.9 Vitamin D deficiency, unspecified; Z80.1 Family history of malignant neoplasm of trachea, bronchus and lung; Z98.1 Arthrodesis status; Y92.488 Other paved roadways as the place of occurrence of the external cause; Y99.8 Other external cause status; Z83.3 Family history of diabetes mellitus; Z88.5 Allergy status to narcotic agent; Z87.891 Personal history of nicotine dependence; Z81.1 Family history of alcohol abuse and dependence
CPT/HCPCS: 36415; 71101; 73610; 99285; J7620; 70450; 80048; 80053; 81003; 83036; 83735; 84100; 84443; 85025; 85610; 85730; 93005; 93306; 93880; 94640; 96372; 96374; 96376; J1644; J1630; J7030

== ENCOUNTER 2017-11-04 17:54 | Inpatient (IN) | payer OTHER ==
[~2017-11-04] VITALS: Ht 165.1 cm; Wt 62.0 kg
[~2017-11-04 17:54] MED LIST changes: +ACET325T26 PO; +ALBUTEROL INH; +CEFAZOLIN 1,000 MG ONE; +CHOL200040 PO; +CLOTRIMAZOLE CREAM; +DEXAMETHASONE 4 MG/ML, 1ML ONE; +DIVA-61 PO; +FLUO20CA8 PO; +IPRATROPIUM INH; +LEVE500T8 PO; +LIDOCAINE TOPICAL; +MORP15TA PO; +ONDANSETRON 2MG/ML, 2ML ONE; +OXYC5CAP2 PO; +PROPOFOL 10 MG/ML, 20ML ONE; +SUCCINYLCHOLINE 20 MG/ML, 10ML ONE
[2017-11-04] MEDS ORDERED: ONDANSETRON ODT 4 MG PO ONE (18:30)
[2017-11-04] MEDS ORDERED: MORPHINE SULFATE 4 MG/ML, 1ML IVPush PRN (18:30)
[2017-11-04] MEDS ORDERED: ONDANSETRON 2MG/ML, 2ML ONE (18:43)
[2017-11-04] MEDS ORDERED: MORPHINE SULFATE 4 MG/ML, 1ML ONE (18:43)
[2017-11-04] MEDS ORDERED: SODIUM CHLORIDE FLUSH 10ML SYR IVF ONE (19:30)
[2017-11-04 20:03] LABS: BASOPHILS # (AUTO) 0.02 x10^3/uL (0-0.1); BASOPHILS % (AUTO) 0 % (0-1); EOSINOPHILS # (AUTO) 0.07 x10^3/uL (0-0.4); EOSINOPHILS % (AUTO) 1 % (1-7); LYMPHOCYTES # (AUTO) 2.58 x10^3/uL (1-3.4); LYMPHOCYTES % (AUTO) 18 % (22-44); MD NO; MEAN CORPUSCULAR HEMOGLOBIN 34.9 pg (27.5-34.5); MEAN CORPUSCULAR HGB CONC 34.1 g/dL (33.2-36.2); MEAN CORPUSCULAR VOLUME 102.2 fL (81-97); MEAN PLATELET VOLUME 8.9 fL (7.4-10.4); MONOCYTES # (AUTO) 0.74 x10^3/uL (0.2-0.8); MONOCYTES % (AUTO) 5 % (2-9); NEUTROPHILS # (AUTO) 10.74 x10^3/uL (1.8-6.8); NEUTROPHILS % (AUTO) 76 % (42-75); PLATELET COUNT 199 x10^3/uL (130-400); RED BLOOD COUNT 3.63 x10^6/uL (4.38-5.82); RED CELL DISTRIBUTION WIDTH 15.3 % (9.4-14.8)
[2017-11-04 20:12] LABS: ALBUMIN 3.1 g/dL (3.4-5.0); ANION GAP 11 mmol/L (5-15); CALCIUM 8.2 mg/dL (8.5-10.1); CHLORIDE 103 mmol/L (98-107); CREATININE 0.75 mg/dL (0.7-1.3); INTERNATIONAL NORMALIZED RATIO 1.08 (0.93-1.1); PROTHROMBIN TIME 11.2 Seconds (9.6-11.5)
[2017-11-04] MEDS ORDERED: ACETAMINOPHEN 325 MG TABLET PO PRN (20:30)
[2017-11-04] MEDS ORDERED: BISACODYL 10 MG SUPP PR PRN (20:30)
[2017-11-04] MEDS ORDERED: POLYETHYLENE GLYCOL 17 GM PACKET PO PRN (20:30)
[2017-11-04] MEDS ORDERED: ONDANSETRON ODT 4 MG PO PRN (20:30)
[2017-11-04] MEDS: SODIUM CHLORIDE FLUSH 10ML SYR IVF SCH (21:08)
[2017-11-04] MEDS: morphine SULFATE 10 MG/ML, 1ML IVPush PRN (21:08)
[2017-11-04] MEDS: LEVETIRACETAM 500 MG TABLET PO SCH (22:19)
[2017-11-04] MEDS: DIVALPROEX 500 MG TABLET.DR PO SCH (22:19)
[2017-11-05] MEDS: morphine SULFATE 10 MG/ML, 1ML IVPush PRN ×6 (00:01→20:45)
[2017-11-05] MEDS ORDERED: MIDAZOLAM 1 MG/ML, 2ML ONE (00:33)
[2017-11-05] MEDS ORDERED: FENTANYL PF 250 MCG/5ML ONE (00:33)
[2017-11-05] MEDS ORDERED: ROCURONIUM 10MG/ML,5ML ONE (00:36)
[2017-11-05 01:16] LABS: MICROSCOPIC NOT IND
[2017-11-05 01:20] LABS: CULTURE INDICATED? NO
[2017-11-05] MEDS ORDERED: MORPHINE SULFATE 4 MG/ML, 1ML IVPush PRN (01:30)
[2017-11-05] MEDS ORDERED: OXYcodone 5 MG/5 ML ORAL.SOL UDC PO PRN (01:30)
[2017-11-05] MEDS ORDERED: PROMETHAZINE 25 MG/ML, 1ML IV PRN (01:30)
[2017-11-05] MEDS ORDERED: FENTANYL PF 100 MCG/2ML IV PRN (01:30)
[2017-11-05] MEDS ORDERED: HYDROmorphone 1 MG/ML, 1ML IV PRN (01:30)
[2017-11-05] MEDS ORDERED: hydrALAzine 20 MG/ML, 1ML IV PRN (01:30)
[2017-11-05] MEDS ORDERED: ONDANSETRON 2MG/ML, 2ML IV PRN (01:30)
[2017-11-05] MEDS ORDERED: LORazepam 2 MG/ML, 1ML IVPush PRN (01:30)
[2017-11-05] MEDS ORDERED: MEPERIDINE/PF 25MG/0.5ML IVPush PRN (01:30)
[2017-11-05] MEDS ORDERED: ALBUTEROL SULFATE 2.5 MG/3 ML NPPB PRN (01:30)
[2017-11-05] MEDS ORDERED: PROMETHAZINE 12.5 MG SUPP PR PRN (01:30)
[2017-11-05] MEDS ORDERED: EPHEDRINE 50 MG/ML, 1ML IVPush PRN (01:30)
[2017-11-05] MEDS ORDERED: MIDAZOLAM 1 MG/ML, 2ML IV PRN (01:30)
[2017-11-05] MEDS ORDERED: LABETALOL 5MG/ML, 20ML IV PRN (01:30)
[2017-11-05] MEDS ORDERED: ONDANSETRON ODT 8 MG PO PRN (01:30)
[2017-11-05] MEDS ORDERED: FENTANYL PF 100 MCG/2ML ONE (02:25)
[2017-11-05] MEDS ORDERED: MEPERIDINE/PF 50 MG/ML ONE (02:25)
[2017-11-05] MEDS ORDERED: OXYcodone 5 MG/5 ML ORAL.SOL UDC ONE (02:26)
[2017-11-05 03:48] VITALS: BP 130/77
[2017-11-05 04:43] LABS: BASOPHILS # (AUTO) 0.02 x10^3/uL (0-0.1); BASOPHILS % (AUTO) 0 % (0-1); EOSINOPHILS # (AUTO) 0.01 x10^3/uL (0-0.4); EOSINOPHILS % (AUTO) 0 % (1-7); LYMPHOCYTES # (AUTO) 1.07 x10^3/uL (1-3.4); LYMPHOCYTES % (AUTO) 7 % (22-44); MD NO; MEAN CORPUSCULAR HEMOGLOBIN 34.2 pg (27.5-34.5); MEAN CORPUSCULAR VOLUME 100.5 fL (81-97); MONOCYTES # (AUTO) 0.77 x10^3/uL (0.2-0.8); MONOCYTES % (AUTO) 5 % (2-9); NEUTROPHILS # (AUTO) 13.83 x10^3/uL (1.8-6.8); NEUTROPHILS % (AUTO) 88 % (42-75); PLATELET COUNT 189 x10^3/uL (130-400); RED CELL DISTRIBUTION WIDTH 15.2 % (9.4-14.8)
[2017-11-05 04:56] LABS: CHLORIDE 102 mmol/L (98-107)
[2017-11-05 05:06] LABS: ALANINE AMINOTRANSFERASE 16 U/L (12-78); ALBUMIN 3.4 g/dL (3.4-5.0); ALKALINE PHOSPHATASE 57 U/L (45-117); ANION GAP 9 mmol/L (5-15); BILIRUBIN,TOTAL 0.4 mg/dL (0.2-1.0); CALCIUM 8.3 mg/dL (8.5-10.1); CREATININE 0.74 mg/dL (0.7-1.3); TOTAL PROTEIN 6.5 g/dL (6.4-8.2)
[2017-11-05 07:25] VITALS: BP 138/78
[2017-11-05] MEDS: CEFAZOLIN PMX 1GM/50ML 50 ML IVPB SCH ×2 (08:33→17:36)
[2017-11-05] MEDS: FLUOXETINE HCL 20 MG CAPSULE PO SCH (08:34)
[2017-11-05] MEDS: SENNA/DOCUSATE TABLET PO SCH (08:34)
[2017-11-05] MEDS: CHOLECALCIFEROL 1,000 UNIT TABLET PO SCH (08:34)
[2017-11-05] MEDS: DIVALPROEX 500 MG TABLET.DR PO SCH ×2 (08:34→20:38)
[2017-11-05] MEDS: LEVETIRACETAM 500 MG TABLET PO SCH ×2 (08:34→20:38)
[2017-11-05] MEDS: SODIUM CHLORIDE FLUSH 10ML SYR IVF SCH ×2 (08:34→20:39)
[2017-11-05 13:15] VITALS: BP 110/85
[2017-11-05] MEDS: ENOXAPARIN 40 MG/0.4 ML SQ SCH (17:36)
[2017-11-05] MEDS: THIAMINE 100MG TABLET PO SCH (17:36)
[2017-11-05 19:55] VITALS: BP 107/70
[2017-11-06 00:19] VITALS: BP 110/78
[2017-11-06] MEDS: morphine SULFATE 10 MG/ML, 1ML IVPush PRN ×4 (00:57→18:48)
[2017-11-06] MEDS: CEFAZOLIN PMX 1GM/50ML 50 ML IVPB SCH ×3 (00:57→17:24)
[2017-11-06 06:49] VITALS: BP 113/78
[2017-11-06] MEDS: SENNA/DOCUSATE TABLET PO SCH (08:42)
[2017-11-06] MEDS: DIVALPROEX 500 MG TABLET.DR PO SCH ×2 (08:42→20:13)
[2017-11-06] MEDS: FLUOXETINE HCL 20 MG CAPSULE PO SCH (08:43)
[2017-11-06] MEDS: THIAMINE 100MG TABLET PO SCH (08:43)
[2017-11-06] MEDS: CHOLECALCIFEROL 1,000 UNIT TABLET PO SCH (08:43)
[2017-11-06] MEDS: SODIUM CHLORIDE FLUSH 10ML SYR IVF SCH ×2 (08:46→20:14)
[2017-11-06] MEDS: LEVETIRACETAM 500 MG TABLET PO SCH ×2 (08:51→20:14)
[2017-11-06] MEDS: POLYETHYLENE GLYCOL 17 GM PACKET PO SCH (09:54)
[2017-11-06 13:43] VITALS: BP_SYST 92; BP_SYST 94; BP_DIAS 59; BP_DIAS 64
[2017-11-06] MEDS: ENOXAPARIN 40 MG/0.4 ML SQ SCH (17:24)
[2017-11-06 18:41] VITALS: BP 147/73
[2017-11-07] VITALS (7 sets, daily range): BP systolic 91–110; BP diastolic 61–74
[2017-11-07] MEDS: morphine SULFATE 10 MG/ML, 1ML IVPush PRN ×7 (00:42→23:12)
[2017-11-07] MEDS: CEFAZOLIN PMX 1GM/50ML 50 ML IVPB SCH ×3 (00:45→17:41)
[2017-11-07 06:12] LABS: MEAN CORPUSCULAR HEMOGLOBIN 35.5 pg (27.5-34.5); MEAN CORPUSCULAR HGB CONC 35.1 g/dL (33.2-36.2); MEAN CORPUSCULAR VOLUME 101.1 fL (81-97); MEAN PLATELET VOLUME 9.3 fL (7.4-10.4); PLATELET COUNT 133 x10^3/uL (130-400); RED BLOOD COUNT 3.03 x10^6/uL (4.38-5.82); RED CELL DISTRIBUTION WIDTH 14.7 % (9.4-14.8)
[2017-11-07 06:34] LABS: BASOPHILS # (AUTO) 0.04 x10^3/uL (0-0.1); BASOPHILS % (AUTO) 0 % (0-1); EOSINOPHILS # (AUTO) 0.03 x10^3/uL (0-0.4); EOSINOPHILS % (AUTO) 0 % (1-7); LYMPHOCYTES # (AUTO) 2.51 x10^3/uL (1-3.4); LYMPHOCYTES % (AUTO) 19 % (22-44); MD SCAN; MONOCYTES # (AUTO) 1.67 x10^3/uL (0.2-0.8); MONOCYTES % (AUTO) 12 % (2-9); NEUTROPHILS # (AUTO) 9.15 x10^3/uL (1.8-6.8); NEUTROPHILS % (AUTO) 68 % (42-75)
[2017-11-07] MEDS: POLYETHYLENE GLYCOL 17 GM PACKET PO SCH (09:00)
[2017-11-07] MEDS: SENNA/DOCUSATE TABLET PO SCH (09:00)
[2017-11-07] MEDS: DIVALPROEX 500 MG TABLET.DR PO SCH ×2 (09:00→20:47)
[2017-11-07] MEDS: FLUOXETINE HCL 20 MG CAPSULE PO SCH (09:00)
[2017-11-07] MEDS: LEVETIRACETAM 500 MG TABLET PO SCH ×2 (09:00→20:47)
[2017-11-07] MEDS: SODIUM CHLORIDE FLUSH 10ML SYR IVF SCH ×2 (09:00→20:47)
[2017-11-07] MEDS: THIAMINE 100MG TABLET PO SCH (09:00)
[2017-11-07] MEDS: CHOLECALCIFEROL 1,000 UNIT TABLET PO SCH (09:00)
[2017-11-07] MEDS ORDERED: FENTANYL PF 100 MCG/2ML ONE (09:23)
[2017-11-07] MEDS ORDERED: PROPOFOL 10 MG/ML, 20ML ONE (09:24)
[2017-11-07] MEDS ORDERED: MIDAZOLAM 1 MG/ML, 2ML ONE (09:35)
[2017-11-07] MEDS ORDERED: ONDANSETRON 2MG/ML, 2ML ONE (09:37)
[2017-11-07] MEDS ORDERED: EPHEDRINE 50 MG/ML, 1ML ONE (09:37)
[2017-11-07] MEDS ORDERED: FENTANYL PF 100 MCG/2ML IV PRN (10:30)
[2017-11-07] MEDS ORDERED: ALBUTEROL SULFATE 2.5 MG/3 ML NPPB PRN (10:30)
[2017-11-07] MEDS ORDERED: LABETALOL 5MG/ML, 20ML IV PRN (10:30)
[2017-11-07] MEDS ORDERED: ONDANSETRON ODT 8 MG PO PRN (10:30)
[2017-11-07] MEDS ORDERED: PROMETHAZINE 25 MG/ML, 1ML IV PRN (10:30)
[2017-11-07] MEDS ORDERED: HALOPERIDOL 5 MG/ML IV PRN (10:30)
[2017-11-07] MEDS ORDERED: EPHEDRINE 50 MG/ML, 1ML IVPush PRN (10:30)
[2017-11-07] MEDS ORDERED: ONDANSETRON 2MG/ML, 2ML IV PRN (10:30)
[2017-11-07] MEDS ORDERED: PROMETHAZINE 12.5 MG SUPP PR PRN (10:30)
[2017-11-07] MEDS ORDERED: MEPERIDINE/PF 25MG/0.5ML IVPush PRN (10:30)
[2017-11-07] MEDS ORDERED: OXYcodone 5 MG/5 ML ORAL.SOL UDC PO PRN (10:30)
[2017-11-07] MEDS ORDERED: hydrALAzine 20 MG/ML, 1ML IV PRN (10:30)
[2017-11-07] MEDS ORDERED: LORazepam 2 MG/ML, 1ML IVPush PRN (10:30)
[2017-11-07] MEDS ORDERED: MORPHINE SULFATE 4 MG/ML, 1ML IVPush PRN (10:30)
[2017-11-07] MEDS ORDERED: HYDROmorphone 1 MG/ML, 1ML IV PRN (10:30)
[2017-11-07] MEDS ORDERED: MIDAZOLAM 1 MG/ML, 2ML IV PRN (10:30)
[2017-11-07] MEDS: LACTULOSE 20 GM/30 ML UDC PO SCH (14:01)
[2017-11-07] MEDS: ENOXAPARIN 40 MG/0.4 ML SQ SCH (16:41)
[2017-11-07] MEDS ORDERED: LACTATED RINGERS 500 ML IVBOLUS ONE (17:00)
[2017-11-07] MEDS: POTASSIUM CHLORIDE 20 MEQ in SODIUM CHLORIDE 0.45% 1,000 ML IV SCH (20:55)
[2017-11-08] MEDS: CEFAZOLIN PMX 1GM/50ML 50 ML IVPB SCH ×2 (01:46→10:14)
[2017-11-08 02:49] VITALS: BP 104/69
[2017-11-08] MEDS: morphine SULFATE 10 MG/ML, 1ML IVPush PRN ×2 (03:32→08:01)
[2017-11-08] MEDS: POTASSIUM CHLORIDE 20 MEQ in SODIUM CHLORIDE 0.45% 1,000 ML IV SCH ×2 (06:23→16:21)
[2017-11-08 07:01] VITALS: BP 107/68
[2017-11-08] MEDS: CHOLECALCIFEROL 1,000 UNIT TABLET PO SCH (09:00)
[2017-11-08] MEDS: THIAMINE 100MG TABLET PO SCH (09:00)
[2017-11-08] MEDS: SODIUM CHLORIDE FLUSH 10ML SYR IVF SCH ×2 (09:00→20:54)
[2017-11-08] MEDS: LACTULOSE 20 GM/30 ML UDC PO SCH (10:11)
[2017-11-08] MEDS: LEVETIRACETAM 500 MG TABLET PO SCH ×2 (10:12→20:53)
[2017-11-08] MEDS: DIVALPROEX 500 MG TABLET.DR PO SCH ×2 (10:12→20:53)
[2017-11-08] MEDS: SENNA/DOCUSATE TABLET PO SCH (10:12)
[2017-11-08] MEDS: FLUOXETINE HCL 20 MG CAPSULE PO SCH (10:13)
[2017-11-08] MEDS ORDERED: morphine SULFATE 10 MG/ML, 1ML IVPush PRN (11:30)
[2017-11-08 12:56] VITALS: BP 103/62
[2017-11-08] MEDS: OXYcodone IR 5MG TABLET PO PRN ×2 (14:21→16:22)
[2017-11-08] MEDS: ENOXAPARIN 40 MG/0.4 ML SQ SCH (16:21)
[2017-11-08] MEDS ORDERED: morphine SULFATE 10 MG/ML, 1ML ONE (18:09)
[2017-11-08] MEDS: MORPHINE SULFATE 4 MG/ML, 1ML IVPush PRN (18:11)
[2017-11-08 19:30] VITALS: BP 108/74
[2017-11-09 01:24] VITALS: BP 108/68
[2017-11-09] MEDS: OXYcodone IR 5MG TABLET PO PRN ×5 (01:38→21:17)
[2017-11-09] MEDS: POTASSIUM CHLORIDE 20 MEQ in SODIUM CHLORIDE 0.45% 1,000 ML IV SCH ×3 (03:06→21:00)
[2017-11-09] MEDS: MORPHINE SULFATE 4 MG/ML, 1ML IVPush PRN (05:21)
[2017-11-09 07:00] VITALS: BP 111/71
[2017-11-09] MEDS: THIAMINE 100MG TABLET PO SCH (09:00)
[2017-11-09] MEDS: CHOLECALCIFEROL 1,000 UNIT TABLET PO SCH (09:00)
[2017-11-09] MEDS: SODIUM CHLORIDE FLUSH 10ML SYR IVF SCH ×2 (09:00→21:00)
[2017-11-09] MEDS: SENNA/DOCUSATE TABLET PO SCH (10:09)
[2017-11-09] MEDS: DIVALPROEX 500 MG TABLET.DR PO SCH ×2 (10:09→21:17)
[2017-11-09] MEDS: LEVETIRACETAM 500 MG TABLET PO SCH ×2 (10:09→21:16)
[2017-11-09] MEDS: LACTULOSE 20 GM/30 ML UDC PO SCH (10:10)
[2017-11-09] MEDS: FLUOXETINE HCL 20 MG CAPSULE PO SCH (10:10)
[2017-11-09] MEDS: GABAPENTIN 100 MG CAPSULE PO SCH ×3 (10:30→21:17)
[2017-11-09 13:05] VITALS: BP 106/65
[2017-11-09] MEDS: ALBUTEROL/IPRATROPIUM 2.5MG/0.5MG, 3 ML NPPB SCH ×2 (13:41→19:41)
[2017-11-09] MEDS: ENOXAPARIN 40 MG/0.4 ML SQ SCH (16:49)
[2017-11-09 19:36] VITALS: BP 106/59
[2017-11-10 01:21] VITALS: BP 103/70
[2017-11-10] MEDS: POTASSIUM CHLORIDE 20 MEQ in SODIUM CHLORIDE 0.45% 1,000 ML IV SCH (04:32)
[2017-11-10] MEDS: OXYcodone IR 5MG TABLET PO PRN ×3 (04:36→16:39)
[2017-11-10 05:12] LABS: CREATININE 0.65 mg/dL (0.7-1.3)
[2017-11-10 05:26] LABS: MEAN CORPUSCULAR HEMOGLOBIN 34.7 pg (27.5-34.5); MEAN CORPUSCULAR HGB CONC 33.9 g/dL (33.2-36.2); MEAN CORPUSCULAR VOLUME 102.2 fL (81-97); MEAN PLATELET VOLUME 8.6 fL (7.4-10.4); PLATELET COUNT 176 x10^3/uL (130-400); RED BLOOD COUNT 2.71 x10^6/uL (4.38-5.82); RED CELL DISTRIBUTION WIDTH 14.6 % (9.4-14.8)
[2017-11-10 05:49] LABS: MD YES
[2017-11-10 05:51] LABS: BAND#(MANUAL) 0.55 x10^3/uL; BANDS%(MANUAL) 6 % (0-7); LYMPHS% (MANUAL) 37 % (22-44); METAMYELOCYTES# (MANUAL) 0.09 x10^3/uL (0-0); METAMYELOCYTES% (MANUAL) 1 % (0-1); MONOS#(MANUAL) 0.18 x10^3/uL (0.3-2.7); MONOS% (MANUAL) 2 % (2-9); SEG#(MANUAL) 4.97 x10^3/uL (1.8-6.8); SEGS% (MANUAL) 54 % (42-75)
[2017-11-10 05:52] LABS: ANISOCYTOSIS 1+; HYPOCHROMIA 1+; POLYCHROMASIA 1+; TARGET CELLS 1+
[2017-11-10 05:53] LABS: <PLATELET ESTIMATE> ADEQUATE; <PLT MORPHOLOGY> NORMAL PLT MORPH
[2017-11-10] MEDS: ALBUTEROL/IPRATROPIUM 2.5MG/0.5MG, 3 ML NPPB SCH ×4 (06:45→19:34)
[2017-11-10 07:14] VITALS: BP 102/67
[2017-11-10] MEDS: SODIUM CHLORIDE FLUSH 10ML SYR IVF SCH ×2 (09:00→21:00)
[2017-11-10] MEDS: SENNA/DOCUSATE TABLET PO SCH (09:00)
[2017-11-10] MEDS: CHOLECALCIFEROL 1,000 UNIT TABLET PO SCH (09:13)
[2017-11-10] MEDS: LEVETIRACETAM 500 MG TABLET PO SCH ×2 (09:13→21:14)
[2017-11-10] MEDS: FLUOXETINE HCL 20 MG CAPSULE PO SCH (09:14)
[2017-11-10] MEDS: DIVALPROEX 500 MG TABLET.DR PO SCH ×2 (09:14→21:14)
[2017-11-10] MEDS: THIAMINE 100MG TABLET PO SCH (09:14)
[2017-11-10] MEDS: GABAPENTIN 100 MG CAPSULE PO SCH ×3 (09:14→21:14)
[2017-11-10] MEDS: LACTULOSE 20 GM/30 ML UDC PO SCH (09:14)
[2017-11-10] MEDS ORDERED: LORazepam 2 MG/ML, 1ML IVPush ONE (10:45)
[2017-11-10] MEDS ORDERED: LORazepam 2 MG/ML, 1ML ONE (10:47)
[2017-11-10] MEDS ORDERED: morphine SULFATE 10 MG/ML, 1ML IVPush ONE (10:50)
[2017-11-10] MEDS ORDERED: LORazepam 2 MG/ML, 1ML IVPush PRN (11:30)
[2017-11-10 11:56] LABS: TROPONIN I < 0.015 ng/mL (0.000-0.045)
[2017-11-10 12:11] LABS: MD YES; MEAN CORPUSCULAR HEMOGLOBIN 35.2 pg (27.5-34.5); MEAN CORPUSCULAR HGB CONC 34.4 g/dL (33.2-36.2); MEAN CORPUSCULAR VOLUME 102.2 fL (81-97); MEAN PLATELET VOLUME 8.5 fL (7.4-10.4); PLATELET COUNT 201 x10^3/uL (130-400); RED BLOOD COUNT 2.83 x10^6/uL (4.38-5.82); RED CELL DISTRIBUTION WIDTH 14.5 % (9.4-14.8)
[2017-11-10 12:13] VITALS: BP 110/70
[2017-11-10 12:14] LABS: BANDS%(MANUAL) 1 % (0-7); BASOS% (MANUAL) 1 % (0-1); LYMPH#(MANUAL) 3.16 x10^3/uL (1-3.4); LYMPHS% (MANUAL) 31 % (22-44); MONOS#(MANUAL) 1.22 x10^3/uL (0.3-2.7); MONOS% (MANUAL) 12 % (2-9); SEG#(MANUAL) 5.61 x10^3/uL (1.8-6.8); SEGS% (MANUAL) 55 % (42-75)
[2017-11-10 12:15] LABS: <PLATELET ESTIMATE> ADEQUATE; <PLT MORPHOLOGY> NORMAL PLT MORPH
[2017-11-10 12:41] LABS: ALANINE AMINOTRANSFERASE 10 U/L (12-78); ALBUMIN 2.7 g/dL (3.4-5.0); ANION GAP 11 mmol/L (5-15); CALCIUM 8.8 mg/dL (8.5-10.1); CHLORIDE 101 mmol/L (98-107); CREATININE 0.73 mg/dL (0.7-1.3)
[2017-11-10 12:43] LABS: ALKALINE PHOSPHATASE 51 U/L (45-117); BILIRUBIN,TOTAL 0.5 mg/dL (0.2-1.0); TOTAL PROTEIN 6.6 g/dL (6.4-8.2)
[2017-11-10 13:37] VITALS: BP 111/72
[2017-11-10] MEDS: SODIUM CHLORIDE 0.9% 1,000 ML IV SCH (16:39)
[2017-11-10] MEDS: ENOXAPARIN 40 MG/0.4 ML SQ SCH (16:39)
[2017-11-10] MEDS ORDERED: GADOBUTROL 7.5 MMOL/7.5 ML PFS ONE (17:59)
[2017-11-10] MEDS ORDERED: OMNIPAQUE 350 MG/ML, 100ML BOTTLE ONE (18:41)
[2017-11-10 18:52] VITALS: BP 110/74
[2017-11-10 19:25] LABS: TROPONIN I < 0.015 ng/mL (0.000-0.045)
[2017-11-11 00:09] VITALS: BP 108/72
[2017-11-11] MEDS: SODIUM CHLORIDE 0.9% 1,000 ML IV SCH ×2 (01:31→12:54)
[2017-11-11 05:45] LABS: MEAN CORPUSCULAR HEMOGLOBIN 35.8 pg (27.5-34.5); MEAN CORPUSCULAR HGB CONC 34.7 g/dL (33.2-36.2); MEAN CORPUSCULAR VOLUME 103.1 fL (81-97); MEAN PLATELET VOLUME 8.3 fL (7.4-10.4); PLATELET COUNT 194 x10^3/uL (130-400); RED BLOOD COUNT 2.56 x10^6/uL (4.38-5.82); RED CELL DISTRIBUTION WIDTH 14.7 % (9.4-14.8)
[2017-11-11 05:54] LABS: ALBUMIN 2.3 g/dL (3.4-5.0); ANION GAP 7 mmol/L (5-15); CALCIUM 8.4 mg/dL (8.5-10.1); CHLORIDE 105 mmol/L (98-107)
[2017-11-11 06:00] LABS: ALANINE AMINOTRANSFERASE 10 U/L (12-78); ALKALINE PHOSPHATASE 43 U/L (45-117); BILIRUBIN,TOTAL 0.6 mg/dL (0.2-1.0); CREATINE KINASE, TOTAL 82 U/L (39-308); CREATININE 0.46 mg/dL (0.7-1.3); TOTAL PROTEIN 5.9 g/dL (6.4-8.2)
[2017-11-11 06:18] LABS: MD YES
[2017-11-11 06:48] LABS: <PLATELET ESTIMATE> ADEQUATE; <PLT MORPHOLOGY> NORMAL PLT MORPH; <RBC MORPHOLOGY> NORMAL; BAND#(MANUAL) 0.15 x10^3/uL; BANDS%(MANUAL) 2 % (0-7); EOS#(MANUAL) 0.15 x10^3/uL (0.0-0.4); EOS% (MANUAL) 2 % (1-7); LYMPH#(MANUAL) 4.14 x10^3/uL (1-3.4); LYMPHS% (MANUAL) 56 % (22-44); MONOS#(MANUAL) 0.44 x10^3/uL (0.3-2.7); MONOS% (MANUAL) 6 % (2-9); SEG#(MANUAL) 2.52 x10^3/uL (1.8-6.8); SEGS% (MANUAL) 34 % (42-75)
[2017-11-11] MEDS: ALBUTEROL/IPRATROPIUM 2.5MG/0.5MG, 3 ML NPPB SCH ×4 (07:00→19:21)
[2017-11-11 08:05] VITALS: BP 113/70
[2017-11-11] MEDS: LACTULOSE 20 GM/30 ML UDC PO SCH (09:45)
[2017-11-11] MEDS: THIAMINE 100MG TABLET PO SCH (09:45)
[2017-11-11] MEDS: CHOLECALCIFEROL 1,000 UNIT TABLET PO SCH (09:45)
[2017-11-11] MEDS: LEVETIRACETAM 500 MG TABLET PO SCH ×2 (09:45→21:14)
[2017-11-11] MEDS: GABAPENTIN 100 MG CAPSULE PO SCH ×3 (09:45→21:14)
[2017-11-11] MEDS: SENNA/DOCUSATE TABLET PO SCH (09:46)
[2017-11-11] MEDS: FLUOXETINE HCL 20 MG CAPSULE PO SCH (09:46)
[2017-11-11] MEDS: DIVALPROEX 500 MG TABLET.DR PO SCH ×2 (09:46→21:15)
[2017-11-11] MEDS: SODIUM CHLORIDE FLUSH 10ML SYR IVF SCH ×2 (09:48→22:47)
[2017-11-11 12:37] VITALS: BP 112/71
[2017-11-11] MEDS: OXYcodone IR 5MG TABLET PO PRN (13:10)
[2017-11-11] MEDS: ENOXAPARIN 40 MG/0.4 ML SQ SCH (16:51)
[2017-11-11 19:55] VITALS: BP 106/64
[2017-11-11 21:13] VITALS: BP 111/71
[2017-11-12] VITALS: BP 105/61
[2017-11-12] MEDS: OXYcodone IR 5MG TABLET PO PRN ×3 (00:07→17:43)
[2017-11-12] MEDS: SODIUM CHLORIDE 0.9% 1,000 ML IV SCH ×2 (04:48→21:36)
[2017-11-12 05:10] LABS: ALBUMIN 2.2 g/dL (3.4-5.0); ANION GAP 6 mmol/L (5-15); CALCIUM 8.4 mg/dL (8.5-10.1); CHLORIDE 104 mmol/L (98-107); CREATININE 0.49 mg/dL (0.7-1.3)
[2017-11-12] MEDS: ALBUTEROL/IPRATROPIUM 2.5MG/0.5MG, 3 ML NPPB SCH ×4 (07:29→19:20)
[2017-11-12 07:35] VITALS: BP 98/55
[2017-11-12] MEDS: SODIUM CHLORIDE FLUSH 10ML SYR IVF SCH ×2 (08:10→21:00)
[2017-11-12] MEDS: FLUOXETINE HCL 20 MG CAPSULE PO SCH (08:17)
[2017-11-12] MEDS: LEVETIRACETAM 500 MG TABLET PO SCH ×2 (08:18→21:36)
[2017-11-12] MEDS: SENNA/DOCUSATE TABLET PO SCH (08:18)
[2017-11-12] MEDS: GABAPENTIN 100 MG CAPSULE PO SCH ×4 (08:18→22:01)
[2017-11-12] MEDS: CHOLECALCIFEROL 1,000 UNIT TABLET PO SCH (08:18)
[2017-11-12] MEDS: DIVALPROEX 500 MG TABLET.DR PO SCH ×2 (08:19→21:36)
[2017-11-12] MEDS: THIAMINE 100MG TABLET PO SCH (08:19)
[2017-11-12] MEDS: LACTULOSE 20 GM/30 ML UDC PO SCH (08:23)
[2017-11-12 14:49] VITALS: BP 96/56
[2017-11-12] MEDS: ENOXAPARIN 40 MG/0.4 ML SQ SCH ×2 (16:03→16:08)
[2017-11-12 20:04] VITALS: BP 113/70
[2017-11-12] MEDS: TEMAZEPAM 15 MG CAPSULE PO PRN (23:06)
[2017-11-13 04:00] VITALS: BP 93/60
[2017-11-13 07:31] VITALS: BP 99/65
[2017-11-13] MEDS: ALBUTEROL/IPRATROPIUM 2.5MG/0.5MG, 3 ML NPPB SCH ×4 (08:45→19:21)
[2017-11-13] MEDS: DIVALPROEX 500 MG TABLET.DR PO SCH ×2 (09:27→20:42)
[2017-11-13] MEDS: CHOLECALCIFEROL 1,000 UNIT TABLET PO SCH (09:28)
[2017-11-13] MEDS: LACTULOSE 20 GM/30 ML UDC PO SCH (09:29)
[2017-11-13] MEDS: GABAPENTIN 100 MG CAPSULE PO SCH ×3 (09:29→20:42)
[2017-11-13] MEDS: LEVETIRACETAM 500 MG TABLET PO SCH ×2 (09:29→20:42)
[2017-11-13] MEDS: FLUOXETINE HCL 20 MG CAPSULE PO SCH (09:29)
[2017-11-13] MEDS: SENNA/DOCUSATE TABLET PO SCH (09:29)
[2017-11-13] MEDS: THIAMINE 100MG TABLET PO SCH (09:29)
[2017-11-13] MEDS: SODIUM CHLORIDE FLUSH 10ML SYR IVF SCH ×2 (09:30→20:42)
[2017-11-13] MEDS: SODIUM CHLORIDE 0.9% 1,000 ML IV SCH (09:38)
[2017-11-13] MEDS ORDERED: FUROSEMIDE 20 MG/2 ML IV ONE (11:00)
[2017-11-13 13:40] VITALS: BP 100/65
[2017-11-13] MEDS ORDERED: MORPHINE SULFATE 4 MG/ML, 1ML IVPush PRN (14:30)
[2017-11-13] MEDS: OXYcodone IR 5MG TABLET PO PRN (15:59)
[2017-11-13] MEDS: ENOXAPARIN 40 MG/0.4 ML SQ SCH (16:00)
[2017-11-13 18:39] VITALS: BP 98/64
[2017-11-13] MEDS: ATORVASTATIN 40 MG TABLET PO SCH (20:42)
[2017-11-13] MEDS: TEMAZEPAM 15 MG CAPSULE PO PRN (23:04)
[2017-11-14 02:15] VITALS: BP 103/68
[2017-11-14 05:54] LABS: MEAN CORPUSCULAR HEMOGLOBIN 35.2 pg (27.5-34.5); MEAN CORPUSCULAR VOLUME 103.6 fL (81-97); MEAN PLATELET VOLUME 7.9 fL (7.4-10.4); PLATELET COUNT 346 x10^3/uL (130-400); RED CELL DISTRIBUTION WIDTH 14.9 % (9.4-14.8)
[2017-11-14 06:07] LABS: ALBUMIN 2.2 g/dL (3.4-5.0); ANION GAP 5 mmol/L (5-15); CALCIUM 8.1 mg/dL (8.5-10.1); CHLORIDE 104 mmol/L (98-107); CREATININE 0.63 mg/dL (0.7-1.3)
[2017-11-14 06:15] LABS: MD YES
[2017-11-14 06:19] LABS: BAND#(MANUAL) 0.07 x10^3/uL; BANDS%(MANUAL) 1 % (0-7); EOS#(MANUAL) 0.14 x10^3/uL (0.0-0.4); EOS% (MANUAL) 2 % (1-7); LYMPH#(MANUAL) 1.56 x10^3/uL (1-3.4); LYMPHS% (MANUAL) 22 % (22-44); MONOS#(MANUAL) 0.43 x10^3/uL (0.3-2.7); MONOS% (MANUAL) 6 % (2-9); SEGS% (MANUAL) 69 % (42-75)
[2017-11-14 06:23] LABS: POLYCHROMASIA 1+
[2017-11-14 06:24] LABS: <PLATELET ESTIMATE> ADEQUATE; <PLT MORPHOLOGY> NORMAL PLT MORPH
[2017-11-14] MEDS: ALBUTEROL/IPRATROPIUM 2.5MG/0.5MG, 3 ML NPPB SCH ×4 (07:00→18:50)
[2017-11-14 08:55] VITALS: BP 95/62
[2017-11-14] MEDS: SODIUM CHLORIDE FLUSH 10ML SYR IVF SCH ×2 (09:00→21:00)
[2017-11-14] MEDS: CHOLECALCIFEROL 1,000 UNIT TABLET PO SCH (09:01)
[2017-11-14] MEDS: LACTULOSE 20 GM/30 ML UDC PO SCH (09:01)
[2017-11-14] MEDS: THIAMINE 100MG TABLET PO SCH (09:02)
[2017-11-14] MEDS: DIVALPROEX 500 MG TABLET.DR PO SCH ×2 (09:02→21:18)
[2017-11-14] MEDS: LEVETIRACETAM 500 MG TABLET PO SCH ×2 (09:02→21:18)
[2017-11-14] MEDS: SENNA/DOCUSATE TABLET PO SCH (09:03)
[2017-11-14] MEDS: FLUOXETINE HCL 20 MG CAPSULE PO SCH (09:03)
[2017-11-14] MEDS: GABAPENTIN 100 MG CAPSULE PO SCH ×3 (09:03→21:17)
[2017-11-14] MEDS: OXYcodone IR 5MG TABLET PO PRN ×2 (11:22→15:55)
[2017-11-14 12:18] VITALS: BP 99/66
[2017-11-14] MEDS ORDERED: FUROSEMIDE 20 MG/2 ML IV ONE (13:00)
[2017-11-14 20:12] VITALS: BP 102/65
[2017-11-14] MEDS: ATORVASTATIN 40 MG TABLET PO SCH (21:18)
[2017-11-15] MEDS: TEMAZEPAM 15 MG CAPSULE PO PRN (00:10)
[2017-11-15 02:14] VITALS: BP 100/63
[2017-11-15 05:38] LABS: MEAN CORPUSCULAR HEMOGLOBIN 35.5 pg (27.5-34.5); MEAN CORPUSCULAR HGB CONC 34.2 g/dL (33.2-36.2); MEAN CORPUSCULAR VOLUME 103.8 fL (81-97); MEAN PLATELET VOLUME 7.5 fL (7.4-10.4); PLATELET COUNT 465 x10^3/uL (130-400); RED BLOOD COUNT 2.81 x10^6/uL (4.38-5.82)
[2017-11-15 05:42] LABS: ALBUMIN 2.5 g/dL (3.4-5.0); ANION GAP 5 mmol/L (5-15); CALCIUM 8.6 mg/dL (8.5-10.1); CHLORIDE 104 mmol/L (98-107)
[2017-11-15 06:18] LABS: MD YES
[2017-11-15 06:21] LABS: <PLATELET ESTIMATE> INCREASED; <PLT MORPHOLOGY> NORMAL PLT MORPH; ANISOCYTOSIS 1+; EOS#(MANUAL) 0.54 x10^3/uL (0.0-0.4); EOS% (MANUAL) 7 % (1-7); LYMPH#(MANUAL) 1.85 x10^3/uL (1-3.4); LYMPHS% (MANUAL) 24 % (22-44); METAMYELOCYTES# (MANUAL) 0.08 x10^3/uL (0-0); METAMYELOCYTES% (MANUAL) 1 % (0-1); MONOS% (MANUAL) 13 % (2-9); POLYCHROMASIA 1+; SEG#(MANUAL) 4.24 x10^3/uL (1.8-6.8); SEGS% (MANUAL) 55 % (42-75)
[2017-11-15 06:44] VITALS: BP 91/55
[2017-11-15] MEDS: ALBUTEROL/IPRATROPIUM 2.5MG/0.5MG, 3 ML NPPB SCH ×4 (06:55→19:16)
[2017-11-15] MEDS: LACTULOSE 20 GM/30 ML UDC PO SCH (08:47)
[2017-11-15] MEDS: DIVALPROEX 500 MG TABLET.DR PO SCH ×2 (08:47→20:21)
[2017-11-15] MEDS: GABAPENTIN 100 MG CAPSULE PO SCH ×3 (08:47→20:21)
[2017-11-15] MEDS: CHOLECALCIFEROL 1,000 UNIT TABLET PO SCH (08:48)
[2017-11-15] MEDS: FLUOXETINE HCL 20 MG CAPSULE PO SCH (08:48)
[2017-11-15] MEDS: THIAMINE 100MG TABLET PO SCH (08:48)
[2017-11-15] MEDS: LEVETIRACETAM 500 MG TABLET PO SCH ×2 (08:48→20:20)
[2017-11-15] MEDS: SENNA/DOCUSATE TABLET PO SCH (08:48)
[2017-11-15] MEDS: SODIUM CHLORIDE FLUSH 10ML SYR IVF SCH ×2 (09:12→20:21)
[2017-11-15] MEDS: OXYcodone IR 5MG TABLET PO PRN (11:21)
[2017-11-15 13:16] VITALS: BP 92/60
[2017-11-15 19:32] VITALS: BP 101/63
[2017-11-15] MEDS ORDERED: DIPHENHYDRAMINE 25 MG CAPSULE PO PRN (20:00)
[2017-11-15] MEDS: ATORVASTATIN 40 MG TABLET PO SCH (20:21)
[2017-11-16 01:56] VITALS: BP 95/65
[2017-11-16 02:14] VITALS: BP 96/61
[2017-11-16 05:11] VITALS: BP 97/62
[2017-11-16] MEDS: OXYcodone IR 5MG TABLET PO PRN ×3 (05:16→23:55)
[2017-11-16 07:43] VITALS: BP 113/68
[2017-11-16] MEDS: ALBUTEROL/IPRATROPIUM 2.5MG/0.5MG, 3 ML NPPB SCH ×4 (07:55→19:47)
[2017-11-16] MEDS: SENNA/DOCUSATE TABLET PO SCH (09:00)
[2017-11-16] MEDS: DIVALPROEX 500 MG TABLET.DR PO SCH ×2 (09:57→20:42)
[2017-11-16] MEDS: THIAMINE 100MG TABLET PO SCH (09:57)
[2017-11-16] MEDS: SODIUM CHLORIDE FLUSH 10ML SYR IVF SCH ×2 (09:57→20:43)
[2017-11-16] MEDS: LEVETIRACETAM 500 MG TABLET PO SCH ×2 (09:58→20:42)
[2017-11-16] MEDS: GABAPENTIN 100 MG CAPSULE PO SCH ×3 (09:58→20:42)
[2017-11-16] MEDS: FLUOXETINE HCL 20 MG CAPSULE PO SCH (09:58)
[2017-11-16] MEDS: LACTULOSE 20 GM/30 ML UDC PO SCH (09:58)
[2017-11-16] MEDS: CHOLECALCIFEROL 1,000 UNIT TABLET PO SCH (09:58)
[2017-11-16] MEDS: ENOXAPARIN 40 MG/0.4 ML SQ SCH (16:24)
[2017-11-16 17:41] VITALS: BP 120/63
[2017-11-16 20:05] VITALS: BP 100/67
[2017-11-16] MEDS: ATORVASTATIN 40 MG TABLET PO SCH (20:42)
[2017-11-16] MEDS ORDERED: OMNIPAQUE 350 MG/ML, 100ML BOTTLE ONE (23:24)
[2017-11-17 02:54] VITALS: BP 96/67
[2017-11-17 04:57] LABS: BASOPHILS # (AUTO) 0.03 x10^3/uL (0-0.1); BASOPHILS % (AUTO) 1 % (0-1); EOSINOPHILS % (AUTO) 7 % (1-7); LYMPHOCYTES # (AUTO) 2.32 x10^3/uL (1-3.4); LYMPHOCYTES % (AUTO) 32 % (22-44); MD NO; MEAN CORPUSCULAR HEMOGLOBIN 35.1 pg (27.5-34.5); MEAN CORPUSCULAR HGB CONC 33.7 g/dL (33.2-36.2); MEAN CORPUSCULAR VOLUME 104.1 fL (81-97); MEAN PLATELET VOLUME 7.5 fL (7.4-10.4); MONOCYTES # (AUTO) 1.39 x10^3/uL (0.2-0.8); MONOCYTES % (AUTO) 19 % (2-9); NEUTROPHILS % (AUTO) 42 % (42-75); PLATELET COUNT 570 x10^3/uL (130-400); RED BLOOD COUNT 2.88 x10^6/uL (4.38-5.82); RED CELL DISTRIBUTION WIDTH 15.5 % (9.4-14.8)
[2017-11-17 05:05] LABS: ALBUMIN 2.5 g/dL (3.4-5.0); ANION GAP 7 mmol/L (5-15); CALCIUM 8.7 mg/dL (8.5-10.1); CHLORIDE 104 mmol/L (98-107); CREATININE 0.68 mg/dL (0.7-1.3)
[2017-11-17] MEDS: ALBUTEROL/IPRATROPIUM 2.5MG/0.5MG, 3 ML NPPB SCH ×4 (06:46→20:33)
[2017-11-17 07:43] VITALS: BP 187/118
[2017-11-17 07:45] VITALS: BP 103/65
[2017-11-17] MEDS: SENNA/DOCUSATE TABLET PO SCH (09:00)
[2017-11-17] MEDS: GABAPENTIN 100 MG CAPSULE PO SCH ×3 (09:34→21:57)
[2017-11-17] MEDS: LACTULOSE 20 GM/30 ML UDC PO SCH (09:34)
[2017-11-17] MEDS: FUROSEMIDE 40 MG/4 ML IV SCH (09:34)
[2017-11-17] MEDS: DIVALPROEX 500 MG TABLET.DR PO SCH ×2 (09:34→21:57)
[2017-11-17] MEDS: LEVETIRACETAM 500 MG TABLET PO SCH ×2 (09:35→21:57)
[2017-11-17] MEDS: SODIUM CHLORIDE FLUSH 10ML SYR IVF SCH ×2 (09:35→21:00)
[2017-11-17] MEDS: THIAMINE 100MG TABLET PO SCH (09:35)
[2017-11-17] MEDS: FLUOXETINE HCL 20 MG CAPSULE PO SCH (09:36)
[2017-11-17] MEDS: CHOLECALCIFEROL 1,000 UNIT TABLET PO SCH (09:36)
[2017-11-17 12:31] VITALS: BP 99/60
[2017-11-17 13:02] VITALS: BP 100/68
[2017-11-17] MEDS: ENOXAPARIN 40 MG/0.4 ML SQ SCH (15:30)
[2017-11-17] MEDS ORDERED: BUPIVACAINE/PF-EPI 0.5% 1:200K ONE (15:57)
[2017-11-17] MEDS ORDERED: FENTANYL PF 100 MCG/2ML ONE ×2 (16:57→18:30)
[2017-11-17] MEDS ORDERED: FUROSEMIDE 40 MG/4 ML IV ONE (17:00)
[2017-11-17] MEDS ORDERED: DEXAMETHASONE 4 MG/ML, 1ML ONE (17:54)
[2017-11-17] MEDS ORDERED: ONDANSETRON 2MG/ML, 2ML ONE (17:54)
[2017-11-17] MEDS ORDERED: CEFAZOLIN 1,000 MG ONE (17:54)
[2017-11-17] MEDS ORDERED: PROPOFOL 10 MG/ML, 20ML ONE (17:54)
[2017-11-17] MEDS ORDERED: PROCHLORPERAZINE 5 MG/ML, 2ML IV PRN (18:30)
[2017-11-17] MEDS ORDERED: MEPERIDINE/PF 25MG/0.5ML IVPush PRN (18:30)
[2017-11-17] MEDS ORDERED: DIPHENHYDRAMINE 50 MG/ML, 1ML IVPush PRN (18:30)
[2017-11-17] MEDS ORDERED: OXYcodone 5 MG/5 ML ORAL.SOL UDC PO PRN (18:30)
[2017-11-17] MEDS ORDERED: hydrALAzine 20 MG/ML, 1ML IV PRN (18:30)
[2017-11-17] MEDS ORDERED: LABETALOL 5MG/ML, 20ML IV PRN (18:30)
[2017-11-17] MEDS ORDERED: HYDROmorphone 2 MG/ML, 1ML ONE (18:31)
[2017-11-17] MEDS ORDERED: OXYcodone 5 MG/5 ML ORAL.SOL UDC ONE (18:31)
[2017-11-17] MEDS: FENTANYL PF 100 MCG/2ML IV PRN ×2 (18:33→18:48)
[2017-11-17] MEDS: HYDROmorphone 1 MG/ML, 1ML IV PRN ×2 (18:35→18:49)
[2017-11-17] MEDS ORDERED: MEPERIDINE/PF 50 MG/ML ONE (18:42)
[2017-11-17 19:30] VITALS: BP 125/86
[2017-11-17] MEDS: ATORVASTATIN 40 MG TABLET PO SCH (21:57)
[2017-11-18 01:46] VITALS: BP 109/72
[2017-11-18 03:47] VITALS: BP 105/72
[2017-11-18 05:34] LABS: ALBUMIN 2.5 g/dL (3.4-5.0); ANION GAP 8 mmol/L (5-15); CALCIUM 8.4 mg/dL (8.5-10.1); CHLORIDE 101 mmol/L (98-107); CREATININE 0.71 mg/dL (0.7-1.3)
[2017-11-18 05:37] LABS: BASOPHILS # (AUTO) 0.02 x10^3/uL (0-0.1); BASOPHILS % (AUTO) 0 % (0-1); EOSINOPHILS # (AUTO) 0.01 x10^3/uL (0-0.4); EOSINOPHILS % (AUTO) 0 % (1-7); LYMPHOCYTES # (AUTO) 1.43 x10^3/uL (1-3.4); LYMPHOCYTES % (AUTO) 18 % (22-44); MD NO; MEAN CORPUSCULAR HEMOGLOBIN 35.3 pg (27.5-34.5); MEAN CORPUSCULAR HGB CONC 34.5 g/dL (33.2-36.2); MEAN CORPUSCULAR VOLUME 102.1 fL (81-97); MEAN PLATELET VOLUME 7.5 fL (7.4-10.4); MONOCYTES # (AUTO) 0.97 x10^3/uL (0.2-0.8); MONOCYTES % (AUTO) 12 % (2-9); NEUTROPHILS # (AUTO) 5.35 x10^3/uL (1.8-6.8); NEUTROPHILS % (AUTO) 69 % (42-75); PLATELET COUNT 523 x10^3/uL (130-400); RED BLOOD COUNT 2.64 x10^6/uL (4.38-5.82); RED CELL DISTRIBUTION WIDTH 15.9 % (9.4-14.8)
[2017-11-18] MEDS: ALBUTEROL/IPRATROPIUM 2.5MG/0.5MG, 3 ML NPPB SCH ×4 (06:29→19:40)
[2017-11-18 06:30] VITALS: BP 105/62
[2017-11-18] MEDS: OXYcodone IR 5MG TABLET PO PRN ×4 (06:33→18:41)
[2017-11-18 08:31] VITALS: BP 111/63
[2017-11-18] MEDS: SODIUM CHLORIDE FLUSH 10ML SYR IVF SCH ×2 (08:49→21:45)
[2017-11-18] MEDS: LEVETIRACETAM 500 MG TABLET PO SCH ×2 (08:49→21:44)
[2017-11-18] MEDS: DIVALPROEX 500 MG TABLET.DR PO SCH ×2 (08:49→21:44)
[2017-11-18] MEDS: CHOLECALCIFEROL 1,000 UNIT TABLET PO SCH (08:50)
[2017-11-18] MEDS: GABAPENTIN 100 MG CAPSULE PO SCH ×3 (08:50→21:44)
[2017-11-18] MEDS: FLUOXETINE HCL 20 MG CAPSULE PO SCH (08:52)
[2017-11-18] MEDS: SENNA/DOCUSATE TABLET PO SCH (08:52)
[2017-11-18] MEDS: THIAMINE 100MG TABLET PO SCH (08:52)
[2017-11-18] MEDS: LACTULOSE 20 GM/30 ML UDC PO SCH (08:52)
[2017-11-18] MEDS: FUROSEMIDE 40 MG/4 ML IV SCH (08:54)
[2017-11-18 15:44] VITALS: BP 103/69
[2017-11-18] MEDS: ENOXAPARIN 40 MG/0.4 ML SQ SCH (17:05)
[2017-11-18 19:15] VITALS: BP 110/76
[2017-11-18] MEDS: ATORVASTATIN 40 MG TABLET PO SCH (21:44)
[2017-11-19] MEDS: OXYcodone IR 5MG TABLET PO PRN ×4 (00:07→17:50)
[2017-11-19 00:23] VITALS: BP 96/66
[2017-11-19 05:36] LABS: MEAN CORPUSCULAR HEMOGLOBIN 35.2 pg (27.5-34.5); MEAN CORPUSCULAR HGB CONC 33.9 g/dL (33.2-36.2); MEAN CORPUSCULAR VOLUME 103.8 fL (81-97); MEAN PLATELET VOLUME 7.5 fL (7.4-10.4); PLATELET COUNT 516 x10^3/uL (130-400); RED BLOOD COUNT 2.69 x10^6/uL (4.38-5.82); RED CELL DISTRIBUTION WIDTH 15.6 % (9.4-14.8)
[2017-11-19 05:37] LABS: CALCIUM 8.5 mg/dL (8.5-10.1); CHLORIDE 102 mmol/L (98-107)
[2017-11-19 05:40] LABS: ALBUMIN 2.6 g/dL (3.4-5.0); ANION GAP 8 mmol/L (5-15)
[2017-11-19 06:00] LABS: MD YES
[2017-11-19 06:10] LABS: ANISOCYTOSIS 1+; BASOS#(MANUAL) 0.15 x10^3/uL (0-0.1); BASOS% (MANUAL) 2 % (0-1); EOS#(MANUAL) 0.15 x10^3/uL (0.0-0.4); EOS% (MANUAL) 2 % (1-7); LYMPHS% (MANUAL) 52 % (22-44); MONOS#(MANUAL) 0.15 x10^3/uL (0.3-2.7); MONOS% (MANUAL) 2 % (2-9); POLYCHROMASIA 1+; SEG#(MANUAL) 3.07 x10^3/uL (1.8-6.8); SEGS% (MANUAL) 42 % (42-75)
[2017-11-19 06:11] LABS: <PLATELET ESTIMATE> INCREASED; <PLT MORPHOLOGY> NORMAL PLT MORPH
[2017-11-19 06:29] VITALS: BP 105/62
[2017-11-19] MEDS: ALBUTEROL/IPRATROPIUM 2.5MG/0.5MG, 3 ML NPPB SCH ×4 (07:25→19:33)
[2017-11-19] MEDS: SODIUM CHLORIDE FLUSH 10ML SYR IVF SCH ×2 (08:06→20:56)
[2017-11-19] MEDS: LACTULOSE 20 GM/30 ML UDC PO SCH (09:55)
[2017-11-19] MEDS: FUROSEMIDE 40 MG/4 ML IV SCH (09:56)
[2017-11-19] MEDS: LEVETIRACETAM 500 MG TABLET PO SCH ×2 (10:00→20:54)
[2017-11-19] MEDS: DIVALPROEX 500 MG TABLET.DR PO SCH ×2 (10:00→20:54)
[2017-11-19] MEDS: FLUOXETINE HCL 20 MG CAPSULE PO SCH (10:01)
[2017-11-19] MEDS: GABAPENTIN 100 MG CAPSULE PO SCH ×3 (10:01→20:54)
[2017-11-19] MEDS: CHOLECALCIFEROL 1,000 UNIT TABLET PO SCH (10:03)
[2017-11-19] MEDS: SENNA/DOCUSATE TABLET PO SCH (10:04)
[2017-11-19] MEDS: THIAMINE 100MG TABLET PO SCH (10:04)
[2017-11-19 12:47] VITALS: BP 101/71
[2017-11-19] MEDS: ENOXAPARIN 40 MG/0.4 ML SQ SCH (16:32)
[2017-11-19 20:11] VITALS: BP 106/70
[2017-11-19] MEDS: ATORVASTATIN 40 MG TABLET PO SCH (20:54)
[2017-11-20 01:22] VITALS: BP 109/85
[2017-11-20] MEDS: OXYcodone IR 5MG TABLET PO PRN ×3 (03:42→17:08)
[2017-11-20 04:58] LABS: BASOPHILS # (AUTO) 0.03 x10^3/uL (0-0.1); BASOPHILS % (AUTO) 0 % (0-1); EOSINOPHILS % (AUTO) 2 % (1-7); LYMPHOCYTES # (AUTO) 2.03 x10^3/uL (1-3.4); LYMPHOCYTES % (AUTO) 24 % (22-44); MD NO; MEAN PLATELET VOLUME 7.5 fL (7.4-10.4); MONOCYTES # (AUTO) 1.32 x10^3/uL (0.2-0.8); MONOCYTES % (AUTO) 15 % (2-9); NEUTROPHILS # (AUTO) 5.05 x10^3/uL (1.8-6.8); NEUTROPHILS % (AUTO) 59 % (42-75); PLATELET COUNT 572 x10^3/uL (130-400); RED BLOOD COUNT 2.89 x10^6/uL (4.38-5.82); RED CELL DISTRIBUTION WIDTH 15.4 % (9.4-14.8)
[2017-11-20 05:02] LABS: ALBUMIN 2.6 g/dL (3.4-5.0); ANION GAP 10 mmol/L (5-15); CALCIUM 8.5 mg/dL (8.5-10.1); CHLORIDE 99 mmol/L (98-107); CREATININE 0.69 mg/dL (0.7-1.3)
[2017-11-20] MEDS: ALBUTEROL/IPRATROPIUM 2.5MG/0.5MG, 3 ML NPPB SCH ×3 (06:31→19:18)
[2017-11-20 07:27] VITALS: BP 143/62
[2017-11-20] MEDS: SODIUM CHLORIDE FLUSH 10ML SYR IVF SCH (07:39)
[2017-11-20] MEDS: DIVALPROEX 500 MG TABLET.DR PO SCH (09:46)
[2017-11-20] MEDS: FUROSEMIDE 40 MG/4 ML IV SCH (09:46)
[2017-11-20] MEDS: LEVETIRACETAM 500 MG TABLET PO SCH (09:47)
[2017-11-20] MEDS: THIAMINE 100MG TABLET PO SCH (09:48)
[2017-11-20] MEDS: FLUOXETINE HCL 20 MG CAPSULE PO SCH (09:48)
[2017-11-20] MEDS: GABAPENTIN 100 MG CAPSULE PO SCH ×2 (09:48→17:08)
[2017-11-20] MEDS: LACTULOSE 20 GM/30 ML UDC PO SCH (09:49)
[2017-11-20] MEDS: CHOLECALCIFEROL 1,000 UNIT TABLET PO SCH (09:49)
[2017-11-20] MEDS: SENNA/DOCUSATE TABLET PO SCH (09:49)
[2017-11-20 12:54] VITALS: BP 122/85
[2017-11-20] MEDS ORDERED: ALBUTEROL/IPRATROPIUM 2.5MG/0.5MG, 3 ML ONE (13:33)
[2017-11-20] MEDS ORDERED: GABA-826 PO (17:01)
[2017-11-20] MEDS ORDERED: ATOR40TA78 PO (17:01)
[2017-11-20] MEDS ORDERED: ENOX40SY4 SQ (17:04)
[2017-11-20] MEDS ORDERED: FURO-93 PO (17:04)
[2017-11-20] MEDS ORDERED: POTA8TAB6 PO (17:04)
[2017-11-20] MEDS: ENOXAPARIN 40 MG/0.4 ML SQ SCH (17:08)
== END 2017-11-21 00:03 | disposition home health service (06) | DRG 477 ==
LOC: ED 19:09 → EDIP 20:06 → 4NOR 20:38 → 5SO 11-10 13:00 → 4EST 11-12 12:04
PROVIDERS: ADMIT Hospitalist; ATTEND Hospitalist
PROC: 0KNS0ZZ Release Right Lower Leg Muscle, Open Approach (ICD-10-PCS; 2017-11-05)
PROC: 0KNS0ZZ Release Right Lower Leg Muscle, Open Approach (ICD-10-PCS; 2017-11-05)
PROC: 0KNS0ZZ Release Right Lower Leg Muscle, Open Approach (ICD-10-PCS; 2017-11-05)
PROC: 0QSG3BZ Reposition Right Tibia with Monoplanar External Fixation Device, Percutaneous Approach (ICD-10-PCS; 2017-11-05)
PROC: 0KNS0ZZ Release Right Lower Leg Muscle, Open Approach (ICD-10-PCS; 2017-11-05)
PROC: 0KNS0ZZ Release Right Lower Leg Muscle, Open Approach (ICD-10-PCS; principal; 2017-11-05 00:15)
PROC: 0YQHXZZ Repair Right Lower Leg, External Approach (ICD-10-PCS; 2017-11-07)
PROC: 0QBG0ZX Excision of Right Tibia, Open Approach, Diagnostic (ICD-10-PCS; 2017-11-17)
DX: S82.141A Displaced bicondylar fracture of right tibia, initial encounter for closed fracture (principal); J96.01 Acute respiratory failure with hypoxia; E44.1 Mild protein-calorie malnutrition; J98.11 Atelectasis; F10.239 Alcohol dependence with withdrawal, unspecified; T79.A21A Traumatic compartment syndrome of right lower extremity, initial encounter; S82.251A Displaced comminuted fracture of shaft of right tibia, initial encounter for closed fracture; D53.9 Nutritional anemia, unspecified; E55.9 Vitamin D deficiency, unspecified; F17.210 Nicotine dependence, cigarettes, uncomplicated; F32.9 Major depressive disorder, single episode, unspecified; F43.10 Post-traumatic stress disorder, unspecified; G40.909 Epilepsy, unspecified, not intractable, without status epilepticus; I65.29 Occlusion and stenosis of unspecified carotid artery; M85.80 Other specified disorders of bone density and structure, unspecified site; S61.212A Laceration without foreign body of right middle finger without damage to nail, initial encounter; S61.214A Laceration without foreign body of right ring finger without damage to nail, initial encounter; Z66 Do not resuscitate; W01.0XXA Fall on same level from slipping, tripping and stumbling without subsequent striking against object, initial encounter; Y92.89 Other specified places as the place of occurrence of the external cause; Y99.8 Other external cause status; Y93.01 Activity, walking, marching and hiking; Z68.22 Body mass index [BMI] 22.0-22.9, adult; Z80.1 Family history of malignant neoplasm of trachea, bronchus and lung; Z83.3 Family history of diabetes mellitus; M25.40 Effusion, unspecified joint
CPT/HCPCS: 36415; 73552; 73590; 76000; 76001; 80177; 99285; J7620; 70450; 70553; 71045; 71275; 74177; 80048; 80053; 80164; 81003; 82040; 82550; 82565; 82607; 82746; 83735; 84100; 84443; 84484; 85025; 85610; 85730; 87015; 87070; 87075; 87102; 87116; 87205; 87206; 88305; 88313; 88341; 88342; 93005; 93306; 93880; 93922; 94640; 96374; A9585; C1713; G0378; J0690; J1100; J1170; J1650; J1940; J2175; J2250; J2405; J2704; J3010; J3480; J7120; Q0162; Q9967; G0461; J0330; J2060; J2270; J7030; Q0163

== ENCOUNTER 2017-12-09 08:20 | Observation (INO) | payer OTHER ==
[~2017-12-09] VITALS: Ht 165.1 cm; Wt 68.0 kg
[~2017-12-09 08:20] MED LIST changes: +ATOR40TA78 PO; -CEFAZOLIN 1,000 MG ONE; -DEXAMETHASONE 4 MG/ML, 1ML ONE; +ENOX40SY4 SQ; +FURO-93 PO; +GABA-826 PO; -ONDANSETRON 2MG/ML, 2ML ONE; +POTA8TAB6 PO; -PROPOFOL 10 MG/ML, 20ML ONE; -SUCCINYLCHOLINE 20 MG/ML, 10ML ONE
[2017-12-09] MEDS ORDERED: LACTATED RINGERS 1,000 ML IV SCH (08:51)
[2017-12-09 09:03] VITALS: BP 115/78
[2017-12-09] MEDS ORDERED: MIDAZOLAM 1 MG/ML, 2ML ONE (09:06)
[2017-12-09] MEDS ORDERED: FENTANYL PF 250 MCG/5ML ONE (09:06)
[2017-12-09] MEDS ORDERED: GABA300C10 PO (09:39)
[2017-12-09] MEDS ORDERED: LEVE500T8 PO (09:39)
[2017-12-09] MEDS ORDERED: FLUO20CA8 PO (09:39)
[2017-12-09] MEDS ORDERED: CHOL200040 PO (09:39)
[2017-12-09] MEDS ORDERED: POTA8CAP PO (09:39)
[2017-12-09] MEDS ORDERED: FURO20TA3 PO (09:39)
[2017-12-09] MEDS ORDERED: DIVA500T17 PO ×2 (09:39)
[2017-12-09] MEDS ORDERED: SUCCINYLCHOLINE 20 MG/ML, 10ML ONE (10:41)
[2017-12-09] MEDS ORDERED: CEFAZOLIN 1,000 MG ONE (10:41)
[2017-12-09] MEDS ORDERED: PROPOFOL 10 MG/ML, 20ML ONE (10:41)
[2017-12-09] MEDS ORDERED: DEXAMETHASONE 4 MG/ML, 1ML ONE (10:41)
[2017-12-09] MEDS ORDERED: ONDANSETRON 2MG/ML, 2ML ONE (10:41)
[2017-12-09] MEDS ORDERED: ROCURONIUM 10 MG/ML,10ML ONE (10:41)
[2017-12-09] MEDS ORDERED: VANCOMYCIN 1,000 MG ONE (12:43)
[2017-12-09] MEDS ORDERED: BISACODYL 10 MG SUPP PR PRN (15:00)
[2017-12-09] MEDS ORDERED: HYDROcodone/APAP 5/325 TABLET PO PRN (15:00)
[2017-12-09] MEDS ORDERED: MAGNESIUM HYDROXIDE 8%, 30ML UDC PO PRN (15:00)
[2017-12-09] MEDS ORDERED: ONDANSETRON 2MG/ML, 2ML IVPush PRN ×2 (15:00→15:30)
[2017-12-09] MEDS ORDERED: PROMETHAZINE 25 MG/ML, 1ML IM PRN (15:00)
[2017-12-09] MEDS ORDERED: SENNA/DOCUSATE TABLET PO PRN (15:00)
[2017-12-09] MEDS ORDERED: ACETAMINOPHEN 325 MG TABLET PO PRN (15:00)
[2017-12-09] MEDS ORDERED: MORPHINE SULFATE 4 MG/ML, 1ML IVPush PRN (15:00)
[2017-12-09] MEDS ORDERED: ALUMINUM/MAG/SIMETHICONE 30 ML UDC PO PRN (15:00)
[2017-12-09] MEDS: FENTANYL PF 100 MCG/2ML IV PRN ×2 (15:01→15:22)
[2017-12-09] MEDS ORDERED: FENTANYL PF 100 MCG/2ML ONE (15:07)
[2017-12-09] MEDS ORDERED: OXYcodone 5 MG/5 ML ORAL.SOL UDC ONE (15:07)
[2017-12-09] MEDS ORDERED: HYDROmorphone 2 MG/ML, 1ML ONE (15:23)
[2017-12-09] MEDS ORDERED: ALBUTEROL SULFATE 2.5 MG/3 ML NPPB PRN ×2 (15:30→23:30)
[2017-12-09] MEDS ORDERED: PROMETHAZINE 25 MG/ML, 1ML IV PRN (15:30)
[2017-12-09] MEDS ORDERED: MEPERIDINE/PF 25MG/0.5ML IVPush PRN (15:30)
[2017-12-09] MEDS ORDERED: LABETALOL 5MG/ML, 20ML IV PRN (15:30)
[2017-12-09] MEDS ORDERED: HYDROmorphone 1 MG/ML, 1ML IV PRN (15:30)
[2017-12-09] MEDS ORDERED: hydrALAzine 20 MG/ML, 1ML IV PRN (15:30)
[2017-12-09] MEDS ORDERED: OXYcodone 5 MG/5 ML ORAL.SOL UDC PO PRN (15:30)
[2017-12-09] MEDS ORDERED: METOCLOPRAMIDE 5 MG/ML, 2ML IV PRN (15:30)
[2017-12-09] MEDS ORDERED: KETOROLAC 30 MG/1 ML IV PRN (15:30)
[2017-12-09] MEDS: CEFAZOLIN PMX 1GM/50ML 50 ML IVPB SCH (18:46)
[2017-12-09 20:16] VITALS: BP 108/75
[2017-12-09] MEDS: DOCUSATE 100 MG CAPSULE PO SCH (20:39)
[2017-12-09] MEDS ORDERED: DIVALPROEX 500 MG TAB.ER.24H PO SCH (21:30)
[2017-12-09] MEDS: DIVALPROEX 500 MG TAB.ER.24H PO SCH (22:56)
[2017-12-09] MEDS: LEVETIRACETAM 500 MG TABLET PO SCH (22:56)
[2017-12-09] MEDS: GABAPENTIN 300 MG CAPSULE PO SCH (22:56)
[2017-12-10] MEDS: OXYcodone/APAP 5/325MG TABLET PO PRN ×4 (00:19→13:55)
[2017-12-10 00:20] VITALS: BP 114/62
[2017-12-10 00:24] VITALS: BP 105/69
[2017-12-10] MEDS: CEFAZOLIN PMX 1GM/50ML 50 ML IVPB SCH (02:58)
[2017-12-10 03:11] VITALS: BP 108/70
[2017-12-10] MEDS ORDERED: POTASSIUM CHLORIDE 8 MEQ TABLET.ER PO SCH (08:00)
[2017-12-10] MEDS: HEPARIN 5,000 UNITS/ML, 1ML SQ SCH ×2 (08:33→16:00)
[2017-12-10] MEDS: DIVALPROEX 500 MG TAB.ER.24H PO SCH (08:34)
[2017-12-10] MEDS: DOCUSATE 100 MG CAPSULE PO SCH (08:34)
[2017-12-10] MEDS: LEVETIRACETAM 500 MG TABLET PO SCH (08:34)
[2017-12-10] MEDS: GABAPENTIN 300 MG CAPSULE PO SCH ×2 (08:34→16:00)
[2017-12-10] MEDS ORDERED: CHOLECALCIFEROL 1,000 UNIT TABLET PO SCH (09:00)
[2017-12-10] MEDS ORDERED: FUROSEMIDE 20 MG TABLET PO SCH (09:00)
[2017-12-10] MEDS ORDERED: FLUOXETINE HCL 20 MG CAPSULE PO SCH (09:00)
[2017-12-10 09:48] VITALS: BP 99/65
[2017-12-10 14:05] VITALS: BP 102/68
[2017-12-10] MEDS ORDERED: ASPI-650 PO (15:30)
== END 2017-12-10 16:56 | disposition home or self-care (01) ==
LOC: OUT 08:20 → ORIP 15:20 → INTOOBSV 15:20 → 4NOR 16:37
PROVIDERS: ADMIT Orthopaedic Surgery; ATTEND Orthopaedic Surgery
DX: S82.143A Displaced bicondylar fracture of unspecified tibia, initial encounter for closed fracture (principal); T79.A21A Traumatic compartment syndrome of right lower extremity, initial encounter; M84.469A Pathological fracture, unspecified tibia and fibula, initial encounter for fracture; K74.60 Unspecified cirrhosis of liver; Z87.11 Personal history of peptic ulcer disease; X58.XXXA Exposure to other specified factors, initial encounter; Y92.89 Other specified places as the place of occurrence of the external cause; Y93.89 Activity, other specified
CPT/HCPCS: 27536; 73590; 76001; 88307; 88311; 96365; 96366; 96372; C1713; C1762; G0378; J0330; J0690; J1100; J1644; J2250; J2405; J2704; J3010; J3370

== ENCOUNTER 2017-12-26 13:01 | Inpatient (IN) | payer OTHER ==
[~2017-12-26] VITALS: Ht 165.1 cm; Wt 62.0 kg
[~2017-12-26 13:01] MED LIST changes: +ASPI-650 PO; +DIVA500T17 PO; +FURO20TA3 PO; +GABA300C10 PO; +POTA8CAP PO
[2017-12-26 13:43] LABS: BASOPHILS # (AUTO) 0.05 x10^3/uL (0-0.1); BASOPHILS % (AUTO) 1 % (0-1); EOSINOPHILS # (AUTO) 0.16 x10^3/uL (0-0.4); EOSINOPHILS % (AUTO) 3 % (1-7); LYMPHOCYTES # (AUTO) 2.33 x10^3/uL (1-3.4); LYMPHOCYTES % (AUTO) 41 % (22-44); MD NO; MEAN CORPUSCULAR HEMOGLOBIN 31.6 pg (27.5-34.5); MEAN CORPUSCULAR HGB CONC 31.8 g/dL (33.2-36.2); MEAN CORPUSCULAR VOLUME 99.2 fL (81-97); MONOCYTES # (AUTO) 0.66 x10^3/uL (0.2-0.8); MONOCYTES % (AUTO) 12 % (2-9); NEUTROPHILS # (AUTO) 2.44 x10^3/uL (1.8-6.8); NEUTROPHILS % (AUTO) 43 % (42-75); PLATELET COUNT 650 x10^3/uL (130-400); RED BLOOD COUNT 3.67 x10^6/uL (4.38-5.82); RED CELL DISTRIBUTION WIDTH 15.7 % (9.4-14.8)
[2017-12-26 13:55] LABS: ALBUMIN 2.7 g/dL (3.4-5.0); ANION GAP 10 mmol/L (5-15); CALCIUM 8.7 mg/dL (8.5-10.1); CHLORIDE 107 mmol/L (98-107); CREATININE 0.66 mg/dL (0.7-1.3)
[2017-12-26] MEDS ORDERED: SODIUM CHLORIDE FLUSH 10ML SYR IVF ONE (15:00)
[2017-12-26] MEDS ORDERED: SODIUM CHLORIDE 0.9%, 500ML IVBOLUS ONE (15:00)
[2017-12-26] MEDS ORDERED: ONDANSETRON 2MG/ML, 2ML IVPush PRN (16:00)
[2017-12-26] MEDS ORDERED: ONDANSETRON ODT 4 MG PO PRN (16:00)
[2017-12-26] MEDS ORDERED: POLYETHYLENE GLYCOL 17 GM PACKET PO PRN (16:00)
[2017-12-26] MEDS ORDERED: LABETALOL 5MG/ML, 20ML IVPush PRN (16:00)
[2017-12-26] MEDS ORDERED: METH500T7 PO (16:01)
[2017-12-26] MEDS ORDERED: LEVE500T13 PO (16:03)
[2017-12-26] MEDS ORDERED: ALBUTEROL MDI INH (16:26)
[2017-12-26] MEDS: GABAPENTIN 300 MG CAPSULE PO SCH ×2 (17:57→21:32)
[2017-12-26] MEDS: SODIUM CHLORIDE 0.45% 1,000 ML IV SCH (18:06)
[2017-12-26] MEDS: ACETAMINOPHEN 325 MG TABLET PO SCH ×2 (18:06→22:00)
[2017-12-26 18:09] VITALS: BP 98/62
[2017-12-26 18:31] VITALS: BP 119/69
[2017-12-26] MEDS ORDERED: morphine SULFATE 15 MG TAB.IR PO SCH (21:00)
[2017-12-26] MEDS ORDERED: LEVETIRACETAM 500 MG PO SCH (21:00)
[2017-12-26] MEDS ORDERED: LEVETIRACETAM 500 MG TABLET PO SCH (21:00)
[2017-12-26] MEDS ORDERED: ALBUTEROL/IPRATROPIUM 2.5MG/0.5MG, 3 ML NPPB PRN (21:30)
[2017-12-26] MEDS: NICOTINE 21 MG/24 HR PATCH.TD24 TD SCH (21:31)
[2017-12-26] MEDS: ENOXAPARIN 40 MG/0.4 ML SQ SCH (21:31)
[2017-12-26] MEDS: ASPIRIN 325 MG TABLET EC PO SCH (21:32)
[2017-12-26] MEDS: LEVETIRACETAM 500 MG TABLET PO SCH (21:32)
[2017-12-26] MEDS: DIVALPROEX 500 MG TAB.ER.24H PO SCH (21:32)
[2017-12-26] MEDS: METHOCARBAMOL 500 MG TABLET PO SCH (22:00)
[2017-12-27 00:18] VITALS: BP 103/67
[2017-12-27] MEDS: SODIUM CHLORIDE 0.45% 1,000 ML IV SCH (01:55)
[2017-12-27 02:14] LABS: MICROSCOPIC NOT IND
[2017-12-27] MEDS: ACETAMINOPHEN 325 MG TABLET PO SCH ×6 (02:16→23:30)
[2017-12-27 02:19] LABS: CULTURE INDICATED? NO
[2017-12-27 05:43] LABS: BASOPHILS # (AUTO) 0.05 x10^3/uL (0-0.1); BASOPHILS % (AUTO) 1 % (0-1); EOSINOPHILS # (AUTO) 0.28 x10^3/uL (0-0.4); EOSINOPHILS % (AUTO) 4 % (1-7); LYMPHOCYTES # (AUTO) 2.74 x10^3/uL (1-3.4); LYMPHOCYTES % (AUTO) 35 % (22-44); MD NO; MEAN CORPUSCULAR HEMOGLOBIN 32.7 pg (27.5-34.5); MEAN CORPUSCULAR HGB CONC 33.1 g/dL (33.2-36.2); MEAN CORPUSCULAR VOLUME 98.8 fL (81-97); MEAN PLATELET VOLUME 7.1 fL (7.4-10.4); MONOCYTES # (AUTO) 1.01 x10^3/uL (0.2-0.8); MONOCYTES % (AUTO) 13 % (2-9); NEUTROPHILS # (AUTO) 3.69 x10^3/uL (1.8-6.8); NEUTROPHILS % (AUTO) 48 % (42-75); PLATELET COUNT 549 x10^3/uL (130-400); RED BLOOD COUNT 3.14 x10^6/uL (4.38-5.82)
[2017-12-27 05:49] LABS: ALBUMIN 2.3 g/dL (3.4-5.0); ANION GAP 6 mmol/L (5-15); CALCIUM 8.2 mg/dL (8.5-10.1); CHLORIDE 109 mmol/L (98-107)
[2017-12-27 06:02] LABS: ALANINE AMINOTRANSFERASE 8 U/L (12-78); ALKALINE PHOSPHATASE 53 U/L (45-117); BILIRUBIN,TOTAL 0.3 mg/dL (0.2-1.0); CREATININE 0.46 mg/dL (0.7-1.3); TOTAL PROTEIN 5.6 g/dL (6.4-8.2)
[2017-12-27 07:05] VITALS: BP 103/66
[2017-12-27] MEDS ORDERED: FLUOXETINE HCL 20 MG CAPSULE PO SCH (09:00)
[2017-12-27] MEDS: ASPIRIN 325 MG TABLET EC PO SCH ×2 (10:59→20:39)
[2017-12-27] MEDS: CHOLECALCIFEROL 1,000 UNIT TABLET PO SCH (10:59)
[2017-12-27] MEDS: DIVALPROEX 500 MG TAB.ER.24H PO SCH ×2 (11:00→20:39)
[2017-12-27] MEDS: LEVETIRACETAM 500 MG TABLET PO SCH ×2 (11:00→20:39)
[2017-12-27] MEDS: SENNA/DOCUSATE TABLET PO SCH (11:01)
[2017-12-27] MEDS: GABAPENTIN 300 MG CAPSULE PO SCH ×3 (11:01→20:39)
[2017-12-27] MEDS: METHOCARBAMOL 500 MG TABLET PO SCH ×2 (11:11→20:55)
[2017-12-27 13:50] VITALS: BP 93/58
[2017-12-27] MEDS: ENOXAPARIN 40 MG/0.4 ML SQ SCH (20:40)
[2017-12-27] MEDS: NICOTINE 21 MG/24 HR PATCH.TD24 TD SCH (20:55)
[2017-12-27 21:43] VITALS: BP 83/57
[2017-12-28 01:13] VITALS: BP 87/58
[2017-12-28] MEDS: ACETAMINOPHEN 325 MG TABLET PO SCH ×6 (01:15→23:26)
[2017-12-28 04:44] LABS: BASOPHILS # (AUTO) 0.06 x10^3/uL (0-0.1); BASOPHILS % (AUTO) 1 % (0-1); EOSINOPHILS # (AUTO) 0.23 x10^3/uL (0-0.4); EOSINOPHILS % (AUTO) 3 % (1-7); LYMPHOCYTES # (AUTO) 3.19 x10^3/uL (1-3.4); LYMPHOCYTES % (AUTO) 42 % (22-44); MD NO; MEAN CORPUSCULAR HEMOGLOBIN 32.8 pg (27.5-34.5); MEAN CORPUSCULAR HGB CONC 33.2 g/dL (33.2-36.2); MEAN CORPUSCULAR VOLUME 98.7 fL (81-97); MEAN PLATELET VOLUME 6.9 fL (7.4-10.4); MONOCYTES # (AUTO) 1.08 x10^3/uL (0.2-0.8); MONOCYTES % (AUTO) 14 % (2-9); NEUTROPHILS % (AUTO) 40 % (42-75); PLATELET COUNT 524 x10^3/uL (130-400); RED BLOOD COUNT 3.24 x10^6/uL (4.38-5.82); RED CELL DISTRIBUTION WIDTH 15.5 % (9.4-14.8)
[2017-12-28 04:51] LABS: ALBUMIN 2.4 g/dL (3.4-5.0); ANION GAP 6 mmol/L (5-15); CALCIUM 8.5 mg/dL (8.5-10.1); CHLORIDE 109 mmol/L (98-107); CREATININE 0.56 mg/dL (0.7-1.3)
[2017-12-28 07:11] VITALS: BP 94/60
[2017-12-28] MEDS ORDERED: BUPIVACAINE/PF 0.5% ONE (08:58)
[2017-12-28] MEDS ORDERED: NEOSPORIN OINT. PKT 1 PACKET ONE (08:58)
[2017-12-28] MEDS ORDERED: FENTANYL PF 250 MCG/5ML ONE (09:45)
[2017-12-28] MEDS ORDERED: MIDAZOLAM 1 MG/ML, 2ML ONE (09:45)
[2017-12-28] MEDS ORDERED: KETAMINE 50 MG/ML, 10ML ONE (09:49)
[2017-12-28] MEDS ORDERED: hydrALAzine 20 MG/ML, 1ML IV PRN (10:00)
[2017-12-28] MEDS ORDERED: SCOPOLAMINE PATCH, 1.5MG PATCH.TD72 TD PRN (10:00)
[2017-12-28] MEDS ORDERED: LABETALOL 5MG/ML, 20ML IV PRN (10:00)
[2017-12-28] MEDS ORDERED: HYDROmorphone 1 MG/ML, 1ML IV PRN (10:00)
[2017-12-28] MEDS ORDERED: ALBUTEROL/IPRATROPIUM 2.5MG/0.5MG, 3 ML NPPB PRN (10:00)
[2017-12-28] MEDS ORDERED: ACETAMINOPHEN 325 MG TABLET PO PRN (10:00)
[2017-12-28] MEDS ORDERED: MEPERIDINE/PF 25MG/0.5ML IVPush PRN (10:00)
[2017-12-28] MEDS ORDERED: PROMETHAZINE 25 MG/ML, 1ML IV PRN (10:00)
[2017-12-28] MEDS ORDERED: ONDANSETRON 2MG/ML, 2ML IV PRN (10:00)
[2017-12-28] MEDS ORDERED: DIAZEPAM 5 MG/ML, 2ML IVPush PRN (10:00)
[2017-12-28] MEDS ORDERED: HALOPERIDOL 5 MG/ML IV PRN (10:00)
[2017-12-28] MEDS ORDERED: FENTANYL PF 100 MCG/2ML IV PRN (10:00)
[2017-12-28] MEDS ORDERED: MIDAZOLAM 1 MG/ML, 2ML IV PRN (10:00)
[2017-12-28] MEDS ORDERED: OXYcodone 5 MG/5 ML ORAL.SOL UDC PO PRN (10:00)
[2017-12-28] MEDS ORDERED: EPHEDRINE 50 MG/ML, 1ML ONE (10:17)
[2017-12-28] MEDS ORDERED: DEXAMETHASONE 4 MG/ML, 1ML ONE (10:30)
[2017-12-28] MEDS ORDERED: PROPOFOL 10 MG/ML, 20ML ONE (10:30)
[2017-12-28] MEDS ORDERED: ONDANSETRON 2MG/ML, 2ML ONE (10:30)
[2017-12-28] MEDS ORDERED: HYDROmorphone 2 MG/ML, 1ML ONE (10:58)
[2017-12-28] MEDS ORDERED: ACETAMINOPHEN 650 MG/20.3 ML UDC ONE (11:11)
[2017-12-28] MEDS ORDERED: OXYcodone 5 MG/5 ML ORAL.SOL UDC ONE (11:11)
[2017-12-28 13:02] VITALS: BP 92/55
[2017-12-28] MEDS: SENNA/DOCUSATE TABLET PO SCH (14:09)
[2017-12-28] MEDS: ASPIRIN 325 MG TABLET EC PO SCH ×2 (14:09→21:01)
[2017-12-28] MEDS: DIVALPROEX 500 MG TAB.ER.24H PO SCH ×2 (14:09→21:01)
[2017-12-28] MEDS: GABAPENTIN 300 MG CAPSULE PO SCH ×3 (14:09→21:01)
[2017-12-28] MEDS: METHOCARBAMOL 500 MG TABLET PO SCH ×2 (14:10→21:12)
[2017-12-28] MEDS: LEVETIRACETAM 500 MG TABLET PO SCH ×2 (14:10→21:01)
[2017-12-28] MEDS: FLUOXETINE HCL 20 MG CAPSULE PO SCH (14:10)
[2017-12-28] MEDS: CHOLECALCIFEROL 1,000 UNIT TABLET PO SCH (14:15)
[2017-12-28 19:25] VITALS: BP 99/66
[2017-12-28] MEDS: ENOXAPARIN 40 MG/0.4 ML SQ SCH (21:01)
[2017-12-28] MEDS: NICOTINE 21 MG/24 HR PATCH.TD24 TD SCH (21:01)
[2017-12-29 00:19] VITALS: BP 90/59
[2017-12-29] MEDS: ACETAMINOPHEN 325 MG TABLET PO SCH ×7 (00:55→22:00)
[2017-12-29 07:31] VITALS: BP 99/63
[2017-12-29] MEDS: SENNA/DOCUSATE TABLET PO SCH (09:47)
[2017-12-29] MEDS: LEVETIRACETAM 500 MG TABLET PO SCH ×2 (09:48→20:50)
[2017-12-29] MEDS: FLUOXETINE HCL 20 MG CAPSULE PO SCH (09:48)
[2017-12-29] MEDS: CHOLECALCIFEROL 1,000 UNIT TABLET PO SCH (09:48)
[2017-12-29] MEDS: GABAPENTIN 300 MG CAPSULE PO SCH ×3 (09:48→20:50)
[2017-12-29] MEDS: ASPIRIN 325 MG TABLET EC PO SCH ×2 (09:48→20:50)
[2017-12-29] MEDS: DIVALPROEX 500 MG TAB.ER.24H PO SCH ×2 (09:48→20:50)
[2017-12-29] MEDS: POLYETHYLENE GLYCOL 17 GM PACKET PO SCH ×2 (09:50→22:16)
[2017-12-29] MEDS: METHOCARBAMOL 500 MG TABLET PO SCH ×2 (10:00→20:50)
[2017-12-29] MEDS ORDERED: FLUO20CA8 PO (10:14)
[2017-12-29] MEDS ORDERED: TRAM50TA2 PO (10:14)
[2017-12-29 12:56] VITALS: BP 101/52
[2017-12-29] MEDS: NICOTINE 21 MG/24 HR PATCH.TD24 TD SCH (20:51)
[2017-12-29] MEDS: ENOXAPARIN 40 MG/0.4 ML SQ SCH (20:51)
[2017-12-29 21:21] VITALS: BP 78/51
[2017-12-29 21:36] VITALS: BP 93/56
[2017-12-30 00:51] VITALS: BP 90/52
[2017-12-30] MEDS: ACETAMINOPHEN 325 MG TABLET PO SCH ×3 (02:11→08:03)
[2017-12-30 07:55] VITALS: BP 87/53
[2017-12-30] MEDS: CHOLECALCIFEROL 1,000 UNIT TABLET PO SCH (08:02)
[2017-12-30] MEDS: DIVALPROEX 500 MG TAB.ER.24H PO SCH (08:02)
[2017-12-30] MEDS: LEVETIRACETAM 500 MG TABLET PO SCH (08:02)
[2017-12-30] MEDS: METHOCARBAMOL 500 MG TABLET PO SCH (08:02)
[2017-12-30] MEDS: ASPIRIN 325 MG TABLET EC PO SCH (08:02)
[2017-12-30] MEDS: GABAPENTIN 300 MG CAPSULE PO SCH (08:03)
[2017-12-30] MEDS: FLUOXETINE HCL 20 MG CAPSULE PO SCH (08:03)
[2017-12-30] MEDS: POLYETHYLENE GLYCOL 17 GM PACKET PO SCH (08:03)
[2017-12-30] MEDS: SENNA/DOCUSATE TABLET PO SCH (08:03)
== END 2017-12-30 13:00 | disposition home or self-care (01) | DRG 495 ==
LOC: ED 15:06 → EDIP 15:40 → 4NOR 17:11 → DCLOUNGE 12-30 12:15
PROVIDERS: ADMIT Hospitalist; ATTEND Hospitalist
PROC: 0QPG05Z Removal of External Fixation Device from Right Tibia, Open Approach (ICD-10-PCS; principal; 2017-12-28 09:30)
DX: M84.461A Pathological fracture, right tibia, initial encounter for fracture (principal); E43 Unspecified severe protein-calorie malnutrition; R64 Cachexia; Z80.1 Family history of malignant neoplasm of trachea, bronchus and lung; Z83.3 Family history of diabetes mellitus; E55.9 Vitamin D deficiency, unspecified; D64.9 Anemia, unspecified; E86.0 Dehydration; F10.20 Alcohol dependence, uncomplicated; Z71.41 Alcohol abuse counseling and surveillance of alcoholic; F17.200 Nicotine dependence, unspecified, uncomplicated; F32.9 Major depressive disorder, single episode, unspecified; F43.10 Post-traumatic stress disorder, unspecified; G25.0 Essential tremor; G40.909 Epilepsy, unspecified, not intractable, without status epilepticus; G89.29 Other chronic pain; K74.60 Unspecified cirrhosis of liver; R62.7 Adult failure to thrive; T67.5XXA Heat exhaustion, unspecified, initial encounter; X58.XXXA Exposure to other specified factors, initial encounter; Y93.89 Activity, other specified; Y92.89 Other specified places as the place of occurrence of the external cause; Y99.8 Other external cause status; X30.XXXA Exposure to excessive natural heat, initial encounter; T67.1XXA Heat syncope, initial encounter; Z81.1 Family history of alcohol abuse and dependence; Z91.81 History of falling; Z79.82 Long term (current) use of aspirin; Z79.899 Other long term (current) drug therapy; Z68.22 Body mass index [BMI] 22.0-22.9, adult
CPT/HCPCS: 36415; 71045; 80048; 80053; 80164; 80307; 81003; 82040; 83605; 83735; 84100; 84145; 84439; 84443; 85025; 93005; 96360; 99285; G0378; J1100; J1650; J2250; J2405; J2704; J3010; J3490; J7040

== ENCOUNTER 2018-01-03 11:32 | Inpatient (IN) | payer OTHER ==
[~2018-01-03] VITALS: Ht 165.1 cm; Wt 51.8 kg
[~2018-01-03 11:32] MED LIST changes: +ALBUTEROL MDI INH; +LEVE500T13 PO; +METH500T7 PO; +TRAM50TA2 PO
[2018-01-03] MEDS ORDERED: SODIUM CHLORIDE FLUSH 10ML SYR IVF ONE (12:30)
[2018-01-03 12:47] LABS: ALANINE AMINOTRANSFERASE 6 U/L (12-78); ALBUMIN 2.9 g/dL (3.4-5.0); ANION GAP 5 mmol/L (5-15); CALCIUM 8.8 mg/dL (8.5-10.1); CHLORIDE 112 mmol/L (98-107); CREATININE 0.68 mg/dL (0.7-1.3)
[2018-01-03 12:49] LABS: ALKALINE PHOSPHATASE 59 U/L (45-117); BILIRUBIN,TOTAL 0.3 mg/dL (0.2-1.0); PROTHROMBIN TIME 10.6 Seconds (9.6-11.5); TOTAL PROTEIN 6.8 g/dL (6.4-8.2)
[2018-01-03 12:55] LABS: MEAN CORPUSCULAR HEMOGLOBIN 32.2 pg (27.5-34.5); MEAN CORPUSCULAR HGB CONC 32.5 g/dL (33.2-36.2); MEAN CORPUSCULAR VOLUME 99.1 fL (81-97); RED BLOOD COUNT 3.53 x10^6/uL (4.38-5.82); RED CELL DISTRIBUTION WIDTH 16.5 % (9.4-14.8)
[2018-01-03] MEDS ORDERED: ONDANSETRON 2MG/ML, 2ML ONE (13:09)
[2018-01-03] MEDS ORDERED: MORPHINE SULFATE 4 MG/ML, 1ML ONE (13:10)
[2018-01-03] MEDS: MORPHINE SULFATE 4 MG/ML, 1ML IVPush PRN ×2 (13:19→16:32)
[2018-01-03 13:23] LABS: BASOPHILS # (AUTO) 0.03 x10^3/uL (0-0.1); BASOPHILS % (AUTO) 0 % (0-1); EOSINOPHILS # (AUTO) 0.26 x10^3/uL (0-0.4); EOSINOPHILS % (AUTO) 2 % (1-7); LYMPHOCYTES # (AUTO) 2.05 x10^3/uL (1-3.4); LYMPHOCYTES % (AUTO) 18 % (22-44); MD NO; MEAN PLATELET VOLUME 9.1 fL (7.4-10.4); MONOCYTES # (AUTO) 0.95 x10^3/uL (0.2-0.8); MONOCYTES % (AUTO) 9 % (2-9); NEUTROPHILS # (AUTO) 7.92 x10^3/uL (1.8-6.8); NEUTROPHILS % (AUTO) 71 % (42-75); PLATELET COUNT 240 x10^3/uL (130-400)
[2018-01-03] MEDS ORDERED: ONDANSETRON 2MG/ML, 2ML IVPush ONE (13:30)
[2018-01-03 13:54] LABS: MICROSCOPIC AUTO
[2018-01-03 13:56] LABS: CULTURE INDICATED? YES
[2018-01-03] MEDS ORDERED: CEFTRIAXONE PMX 1GM/50ML 50 ML IVPB ONE (15:30)
[2018-01-03] MEDS ORDERED: ONDANSETRON 2MG/ML, 2ML IVPush PRN ×2 (16:00→23:30)
[2018-01-03] MEDS ORDERED: ONDANSETRON ODT 4 MG PO PRN (16:00)
[2018-01-03] MEDS ORDERED: SODIUM CHLORIDE FLUSH 10ML SYR IVF PRN (16:00)
[2018-01-03 16:41] VITALS: BP 120/79
[2018-01-03] MEDS: GABAPENTIN 300 MG CAPSULE PO SCH ×2 (17:13→21:54)
[2018-01-03] MEDS: CEFTRIAXONE PMX 1GM/50ML 50 ML IV SCH (17:13)
[2018-01-03] MEDS: SODIUM CHLORIDE 0.9% 1,000 ML IV SCH (17:13)
[2018-01-03] MEDS: ACETAMINOPHEN 325 MG TABLET PO SCH ×2 (17:14→21:54)
[2018-01-03] MEDS: ENOXAPARIN 40 MG/0.4 ML SQ SCH (17:20)
[2018-01-03] MEDS: NICOTINE 21 MG/24 HR PATCH.TD24 TD SCH (17:21)
[2018-01-03 19:21] VITALS: BP 83/45
[2018-01-03 19:35] VITALS: BP 97/62
[2018-01-03] MEDS ORDERED: DIVALPROEX 500 MG TABLET.DR PO SCH (21:00)
[2018-01-03] MEDS ORDERED: ASPIRIN 325 MG PO SCH (21:00)
[2018-01-03] MEDS ORDERED: METHOCARBAMOL 500 MG TABLET PO SCH (21:00)
[2018-01-03] MEDS ORDERED: LEVETIRACETAM 500 MG PO SCH (21:00)
[2018-01-03 21:20] VITALS: BP 94/58
[2018-01-03] MEDS: LEVETIRACETAM 500 MG TABLET PO SCH (21:54)
[2018-01-03 23:14] VITALS: BP 93/57
[2018-01-04] VITALS (7 sets, daily range): BP systolic 90–111; BP diastolic 48–72
[2018-01-04] MEDS: ACETAMINOPHEN 325 MG TABLET PO SCH ×6 (02:32→22:47)
[2018-01-04] MEDS: SODIUM CHLORIDE 0.9% 1,000 ML IV SCH ×2 (05:21→21:14)
[2018-01-04 06:08] LABS: BASOPHILS # (AUTO) 0.04 x10^3/uL (0-0.1); BASOPHILS % (AUTO) 1 % (0-1); EOSINOPHILS # (AUTO) 0.11 x10^3/uL (0-0.4); EOSINOPHILS % (AUTO) 1 % (1-7); LYMPHOCYTES # (AUTO) 0.86 x10^3/uL (1-3.4); LYMPHOCYTES % (AUTO) 11 % (22-44); MD NO; MEAN CORPUSCULAR HEMOGLOBIN 31.8 pg (27.5-34.5); MEAN CORPUSCULAR HGB CONC 32.9 g/dL (33.2-36.2); MEAN CORPUSCULAR VOLUME 96.7 fL (81-97); MEAN PLATELET VOLUME 9.4 fL (7.4-10.4); MONOCYTES # (AUTO) 0.81 x10^3/uL (0.2-0.8); MONOCYTES % (AUTO) 10 % (2-9); NEUTROPHILS # (AUTO) 5.99 x10^3/uL (1.8-6.8); NEUTROPHILS % (AUTO) 77 % (42-75); PLATELET COUNT 189 x10^3/uL (130-400); RED BLOOD COUNT 3.02 x10^6/uL (4.38-5.82); RED CELL DISTRIBUTION WIDTH 16.1 % (9.4-14.8)
[2018-01-04 06:11] LABS: ANION GAP 8 mmol/L (5-15); CALCIUM 7.9 mg/dL (8.5-10.1); CHLORIDE 107 mmol/L (98-107)
[2018-01-04 06:20] LABS: ALANINE AMINOTRANSFERASE 8 U/L (12-78); ALBUMIN 2.3 g/dL (3.4-5.0); ALKALINE PHOSPHATASE 58 U/L (45-117); BILIRUBIN,TOTAL 0.2 mg/dL (0.2-1.0); CREATININE 0.62 mg/dL (0.7-1.3); TOTAL PROTEIN 5.7 g/dL (6.4-8.2)
[2018-01-04] MEDS ORDERED: DIVALPROEX 500 MG TABLET.DR PO SCH (09:00)
[2018-01-04] MEDS: CHOLECALCIFEROL 1,000 UNIT TABLET PO SCH (09:01)
[2018-01-04] MEDS: POTASSIUM CHLORIDE 8 MEQ TABLET.ER PO SCH (09:02)
[2018-01-04] MEDS: GABAPENTIN 300 MG CAPSULE PO SCH ×3 (09:03→21:09)
[2018-01-04] MEDS: LEVETIRACETAM 500 MG TABLET PO SCH ×2 (09:03→21:10)
[2018-01-04] MEDS: FUROSEMIDE 20 MG TABLET PO SCH (09:03)
[2018-01-04] MEDS: METHOCARBAMOL 500 MG TABLET PO SCH ×3 (09:04→21:09)
[2018-01-04] MEDS: FLUOXETINE HCL 20 MG CAPSULE PO SCH (09:05)
[2018-01-04] MEDS: ENOXAPARIN 40 MG/0.4 ML SQ SCH (16:17)
[2018-01-04] MEDS: NICOTINE 21 MG/24 HR PATCH.TD24 TD SCH (16:19)
[2018-01-04] MEDS: CEFTRIAXONE PMX 1GM/50ML 50 ML IV SCH (16:26)
[2018-01-04] MEDS: DIVALPROEX 500 MG TABLET.DR PO SCH (21:09)
[2018-01-05 01:35] VITALS: BP 125/81
[2018-01-05] MEDS: ACETAMINOPHEN 325 MG TABLET PO SCH ×5 (03:14→20:40)
[2018-01-05 05:05] LABS: BASOPHILS # (AUTO) 0.05 x10^3/uL (0-0.1); BASOPHILS % (AUTO) 1 % (0-1); CHLORIDE 105 mmol/L (98-107); EOSINOPHILS # (AUTO) 0.13 x10^3/uL (0-0.4); EOSINOPHILS % (AUTO) 2 % (1-7); LYMPHOCYTES # (AUTO) 2.43 x10^3/uL (1-3.4); LYMPHOCYTES % (AUTO) 46 % (22-44); MD NO; MEAN CORPUSCULAR HEMOGLOBIN 32.9 pg (27.5-34.5); MEAN CORPUSCULAR VOLUME 96.9 fL (81-97); MEAN PLATELET VOLUME 8.6 fL (7.4-10.4); MONOCYTES # (AUTO) 1.06 x10^3/uL (0.2-0.8); MONOCYTES % (AUTO) 20 % (2-9); NEUTROPHILS # (AUTO) 1.66 x10^3/uL (1.8-6.8); NEUTROPHILS % (AUTO) 31 % (42-75); PLATELET COUNT 191 x10^3/uL (130-400); RED BLOOD COUNT 3.01 x10^6/uL (4.38-5.82); RED CELL DISTRIBUTION WIDTH 16.5 % (9.4-14.8)
[2018-01-05 05:17] LABS: ANION GAP 6 mmol/L (5-15); CALCIUM 8.4 mg/dL (8.5-10.1); CREATININE 0.58 mg/dL (0.7-1.3)
[2018-01-05] MEDS: METHOCARBAMOL 500 MG TABLET PO SCH ×4 (05:55→20:39)
[2018-01-05 06:53] VITALS: BP 119/79
[2018-01-05] MEDS: SODIUM CHLORIDE 0.9% 1,000 ML IV SCH (07:45)
[2018-01-05] MEDS: LEVETIRACETAM 500 MG TABLET PO SCH ×2 (08:13→20:39)
[2018-01-05] MEDS: DIVALPROEX 500 MG TABLET.DR PO SCH ×2 (08:14→20:38)
[2018-01-05] MEDS: FUROSEMIDE 20 MG TABLET PO SCH (08:16)
[2018-01-05] MEDS: GABAPENTIN 300 MG CAPSULE PO SCH ×3 (08:16→20:39)
[2018-01-05] MEDS: CHOLECALCIFEROL 1,000 UNIT TABLET PO SCH (08:17)
[2018-01-05] MEDS: POTASSIUM CHLORIDE 8 MEQ TABLET.ER PO SCH (08:18)
[2018-01-05] MEDS: FLUOXETINE HCL 20 MG CAPSULE PO SCH (08:24)
[2018-01-05 13:57] VITALS: BP 102/69
[2018-01-05] MEDS: CEFTRIAXONE PMX 1GM/50ML 50 ML IV SCH (17:03)
[2018-01-05] MEDS: NICOTINE 21 MG/24 HR PATCH.TD24 TD SCH (17:08)
[2018-01-05] MEDS: ENOXAPARIN 40 MG/0.4 ML SQ SCH (17:08)
[2018-01-05 19:47] VITALS: BP 114/74
[2018-01-06] MEDS: ACETAMINOPHEN 325 MG TABLET PO SCH ×6 (00:41→19:30)
[2018-01-06 01:11] VITALS: BP 118/74
[2018-01-06] MEDS: METHOCARBAMOL 500 MG TABLET PO SCH ×4 (05:39→19:30)
[2018-01-06 06:50] VITALS: BP 131/77
[2018-01-06] MEDS: GABAPENTIN 300 MG CAPSULE PO SCH ×3 (07:56→19:30)
[2018-01-06] MEDS: FLUOXETINE HCL 20 MG CAPSULE PO SCH (07:56)
[2018-01-06] MEDS: FUROSEMIDE 20 MG TABLET PO SCH (07:56)
[2018-01-06] MEDS: CHOLECALCIFEROL 1,000 UNIT TABLET PO SCH (07:56)
[2018-01-06] MEDS: LEVETIRACETAM 500 MG TABLET PO SCH ×2 (07:56→19:30)
[2018-01-06] MEDS: POTASSIUM CHLORIDE 8 MEQ TABLET.ER PO SCH (07:56)
[2018-01-06] MEDS: DIVALPROEX 500 MG TABLET.DR PO SCH ×2 (07:56→19:30)
[2018-01-06 13:07] VITALS: BP 113/73
[2018-01-06] MEDS: ENOXAPARIN 40 MG/0.4 ML SQ SCH (15:53)
[2018-01-06] MEDS: NICOTINE 21 MG/24 HR PATCH.TD24 TD SCH (15:53)
[2018-01-06] MEDS: CEFDINIR 300 MG CAPSULE PO SCH (19:29)
[2018-01-06 20:05] VITALS: BP 111/69
[2018-01-07] MEDS: ACETAMINOPHEN 325 MG TABLET PO SCH ×7 (00:53→23:59)
[2018-01-07 01:36] VITALS: BP 101/68
[2018-01-07] MEDS: METHOCARBAMOL 500 MG TABLET PO SCH ×4 (05:49→19:55)
[2018-01-07 08:22] VITALS: BP 112/71
[2018-01-07] MEDS: LEVETIRACETAM 500 MG TABLET PO SCH ×2 (09:17→19:55)
[2018-01-07] MEDS: POTASSIUM CHLORIDE 8 MEQ TABLET.ER PO SCH (09:17)
[2018-01-07] MEDS: FLUOXETINE HCL 20 MG CAPSULE PO SCH (09:17)
[2018-01-07] MEDS: CEFDINIR 300 MG CAPSULE PO SCH ×2 (09:17→19:54)
[2018-01-07] MEDS: DIVALPROEX 500 MG TABLET.DR PO SCH ×2 (09:17→19:55)
[2018-01-07] MEDS: FUROSEMIDE 20 MG TABLET PO SCH (09:18)
[2018-01-07] MEDS: CHOLECALCIFEROL 1,000 UNIT TABLET PO SCH (09:24)
[2018-01-07] MEDS: GABAPENTIN 300 MG CAPSULE PO SCH ×3 (09:24→19:55)
[2018-01-07 12:08] VITALS: BP 99/65
[2018-01-07] MEDS: ENOXAPARIN 40 MG/0.4 ML SQ SCH (16:00)
[2018-01-07] MEDS: KETOROLAC 30 MG/1 ML IVPush SCH ×2 (18:10→23:59)
[2018-01-07 19:14] VITALS: BP 94/63
[2018-01-07] MEDS: NICOTINE 21 MG/24 HR PATCH.TD24 TD SCH (19:56)
[2018-01-08 01:29] VITALS: BP 95/60
[2018-01-08] MEDS: ACETAMINOPHEN 325 MG TABLET PO SCH ×5 (04:14→22:47)
[2018-01-08] MEDS: KETOROLAC 30 MG/1 ML IVPush SCH ×3 (05:56→18:15)
[2018-01-08] MEDS: METHOCARBAMOL 500 MG TABLET PO SCH ×4 (05:56→21:10)
[2018-01-08 07:00] VITALS: BP 114/76
[2018-01-08] MEDS: GABAPENTIN 300 MG CAPSULE PO SCH ×3 (09:40→21:10)
[2018-01-08] MEDS: CHOLECALCIFEROL 1,000 UNIT TABLET PO SCH (09:40)
[2018-01-08] MEDS: CEFDINIR 300 MG CAPSULE PO SCH ×2 (09:40→21:10)
[2018-01-08] MEDS: LEVETIRACETAM 500 MG TABLET PO SCH ×2 (09:41→21:10)
[2018-01-08] MEDS: FUROSEMIDE 20 MG TABLET PO SCH (09:41)
[2018-01-08] MEDS: DIVALPROEX 500 MG TABLET.DR PO SCH ×2 (09:41→21:11)
[2018-01-08] MEDS: FLUOXETINE HCL 20 MG CAPSULE PO SCH (09:41)
[2018-01-08] MEDS: POTASSIUM CHLORIDE 8 MEQ TABLET.ER PO SCH (09:41)
[2018-01-08 12:03] VITALS: BP 100/68
[2018-01-08] MEDS: ENOXAPARIN 40 MG/0.4 ML SQ SCH (16:00)
[2018-01-08] MEDS: NICOTINE 21 MG/24 HR PATCH.TD24 TD SCH (18:17)
[2018-01-08 19:53] VITALS: BP 97/62
[2018-01-09] MEDS: KETOROLAC 30 MG/1 ML IVPush SCH ×4 (00:37→18:23)
[2018-01-09] MEDS: ACETAMINOPHEN 325 MG TABLET PO SCH ×6 (02:30→22:32)
[2018-01-09 02:41] VITALS: BP 100/77
[2018-01-09] MEDS: METHOCARBAMOL 500 MG TABLET PO SCH ×4 (05:40→20:27)
[2018-01-09 07:28] VITALS: BP 92/58
[2018-01-09] MEDS: DIVALPROEX 500 MG TABLET.DR PO SCH ×2 (10:00→20:27)
[2018-01-09] MEDS: FLUOXETINE HCL 20 MG CAPSULE PO SCH (10:00)
[2018-01-09] MEDS: CEFDINIR 300 MG CAPSULE PO SCH ×2 (10:00→20:27)
[2018-01-09] MEDS: FUROSEMIDE 20 MG TABLET PO SCH (10:00)
[2018-01-09] MEDS: LEVETIRACETAM 500 MG TABLET PO SCH ×2 (10:00→20:27)
[2018-01-09] MEDS: CHOLECALCIFEROL 1,000 UNIT TABLET PO SCH (10:01)
[2018-01-09] MEDS: GABAPENTIN 300 MG CAPSULE PO SCH ×3 (10:03→20:27)
[2018-01-09] MEDS: POTASSIUM CHLORIDE 8 MEQ TABLET.ER PO SCH (10:03)
[2018-01-09] MEDS: ENOXAPARIN 40 MG/0.4 ML SQ SCH (16:00)
[2018-01-09] MEDS: NICOTINE 21 MG/24 HR PATCH.TD24 TD SCH (16:49)
[2018-01-09 18:40] VITALS: BP 91/57
[2018-01-10] MEDS: KETOROLAC 30 MG/1 ML IVPush SCH ×4 (00:04→17:42)
[2018-01-10] MEDS: ACETAMINOPHEN 325 MG TABLET PO SCH ×5 (01:59→21:08)
[2018-01-10 02:01] VITALS: BP 99/65
[2018-01-10 05:02] LABS: CREATININE 0.89 mg/dL (0.7-1.3)
[2018-01-10] MEDS: METHOCARBAMOL 500 MG TABLET PO SCH ×4 (05:58→21:08)
[2018-01-10 07:21] VITALS: BP 103/66
[2018-01-10] MEDS: GABAPENTIN 300 MG CAPSULE PO SCH (09:00)
[2018-01-10] MEDS: CEFDINIR 300 MG CAPSULE PO SCH ×2 (09:25→21:08)
[2018-01-10] MEDS: POTASSIUM CHLORIDE 8 MEQ TABLET.ER PO SCH (09:25)
[2018-01-10] MEDS: FUROSEMIDE 20 MG TABLET PO SCH (09:25)
[2018-01-10] MEDS: DIVALPROEX 500 MG TABLET.DR PO SCH ×2 (09:25→21:08)
[2018-01-10] MEDS: FLUOXETINE HCL 20 MG CAPSULE PO SCH (09:25)
[2018-01-10] MEDS: LEVETIRACETAM 500 MG TABLET PO SCH ×2 (09:25→21:08)
[2018-01-10] MEDS: CHOLECALCIFEROL 1,000 UNIT TABLET PO SCH (09:26)
[2018-01-10 12:33] VITALS: BP 99/64
[2018-01-10] MEDS: ENOXAPARIN 40 MG/0.4 ML SQ SCH (16:00)
[2018-01-10] MEDS: NICOTINE 21 MG/24 HR PATCH.TD24 TD SCH (16:19)
[2018-01-10] MEDS: GABAPENTIN 400 MG CAPSULE PO SCH ×2 (16:19→21:08)
[2018-01-10 18:59] VITALS: BP 93/57
[2018-01-10] MEDS: ZOLPIDEM 5MG TABLET PO PRN (21:15)
[2018-01-11 01:12] VITALS: BP 102/55
[2018-01-11] MEDS: ACETAMINOPHEN 325 MG TABLET PO SCH ×6 (01:26→20:36)
[2018-01-11] MEDS: KETOROLAC 30 MG/1 ML IVPush SCH ×4 (01:26→19:21)
[2018-01-11] MEDS: METHOCARBAMOL 500 MG TABLET PO SCH ×4 (05:44→20:36)
[2018-01-11 07:34] VITALS: BP 114/73
[2018-01-11] MEDS: DIVALPROEX 500 MG TABLET.DR PO SCH ×2 (07:38→20:36)
[2018-01-11] MEDS: POTASSIUM CHLORIDE 8 MEQ TABLET.ER PO SCH (07:39)
[2018-01-11] MEDS: GABAPENTIN 400 MG CAPSULE PO SCH ×3 (07:39→20:36)
[2018-01-11] MEDS: CEFDINIR 300 MG CAPSULE PO SCH ×2 (07:39→20:37)
[2018-01-11] MEDS: LEVETIRACETAM 500 MG TABLET PO SCH ×2 (07:39→20:37)
[2018-01-11] MEDS: FLUOXETINE HCL 20 MG CAPSULE PO SCH (07:39)
[2018-01-11] MEDS: FUROSEMIDE 20 MG TABLET PO SCH (07:39)
[2018-01-11] MEDS: CHOLECALCIFEROL 1,000 UNIT TABLET PO SCH (07:40)
[2018-01-11 12:45] VITALS: BP 96/62
[2018-01-11] MEDS: ENOXAPARIN 40 MG/0.4 ML SQ SCH (16:03)
[2018-01-11] MEDS: NICOTINE 21 MG/24 HR PATCH.TD24 TD SCH (16:05)
[2018-01-11 18:57] VITALS: BP 112/73
[2018-01-11] MEDS: ZOLPIDEM 5MG TABLET PO PRN (22:41)
[2018-01-12] MEDS: KETOROLAC 30 MG/1 ML IVPush SCH ×3 (01:03→13:42)
[2018-01-12] MEDS: ACETAMINOPHEN 325 MG TABLET PO SCH ×5 (01:03→17:06)
[2018-01-12 01:25] VITALS: BP 118/78
[2018-01-12] MEDS: METHOCARBAMOL 500 MG TABLET PO SCH ×3 (05:24→15:46)
[2018-01-12 07:17] VITALS: BP 98/67
[2018-01-12] MEDS: DIVALPROEX 500 MG TABLET.DR PO SCH (07:32)
[2018-01-12] MEDS: LEVETIRACETAM 500 MG TABLET PO SCH (07:32)
[2018-01-12] MEDS: POTASSIUM CHLORIDE 8 MEQ TABLET.ER PO SCH (07:33)
[2018-01-12] MEDS: FLUOXETINE HCL 20 MG CAPSULE PO SCH (07:33)
[2018-01-12] MEDS: CHOLECALCIFEROL 1,000 UNIT TABLET PO SCH (07:33)
[2018-01-12] MEDS: CEFDINIR 300 MG CAPSULE PO SCH (07:33)
[2018-01-12] MEDS: FUROSEMIDE 20 MG TABLET PO SCH (07:33)
[2018-01-12] MEDS: GABAPENTIN 400 MG CAPSULE PO SCH ×2 (07:33→15:46)
[2018-01-12 13:45] VITALS: BP 105/65
[2018-01-12] MEDS ORDERED: GABA-827 PO (14:54)
[2018-01-12] MEDS: NICOTINE 21 MG/24 HR PATCH.TD24 TD SCH (15:49)
[2018-01-12] MEDS: ENOXAPARIN 40 MG/0.4 ML SQ SCH (15:50)
[2018-01-12] MEDS ORDERED: NAPR-685 PO (17:46)
== END 2018-01-12 18:29 | disposition home or self-care (01) | DRG 871 ==
LOC: ED 14:48 → EDIP 15:45 → 3NE 16:34
PROVIDERS: ADMIT Hospitalist; ATTEND Hospitalist
DX: A41.9 Sepsis, unspecified organism (principal); G93.41 Metabolic encephalopathy; E44.0 Moderate protein-calorie malnutrition; Z68.1 Body mass index [BMI] 19.9 or less, adult; J98.11 Atelectasis; D53.9 Nutritional anemia, unspecified; E55.9 Vitamin D deficiency, unspecified; F17.290 Nicotine dependence, other tobacco product, uncomplicated; F32.9 Major depressive disorder, single episode, unspecified; G25.0 Essential tremor; G89.29 Other chronic pain; G40.909 Epilepsy, unspecified, not intractable, without status epilepticus; B96.20 Unspecified Escherichia coli [E. coli] as the cause of diseases classified elsewhere; F10.20 Alcohol dependence, uncomplicated; G47.00 Insomnia, unspecified; K74.60 Unspecified cirrhosis of liver; N30.90 Cystitis, unspecified without hematuria; Z80.1 Family history of malignant neoplasm of trachea, bronchus and lung; Z83.3 Family history of diabetes mellitus; Z79.899 Other long term (current) drug therapy
CPT/HCPCS: 36415; 71045; 80048; 80053; 81001; 82565; 83605; 84145; 85025; 85610; 85730; 87040; 87077; 87086; 87186; 93005; 96374; 99285; G0378; J0696; J1650; J1885; J2405; J7030

== ENCOUNTER 2018-01-19 22:42 | Inpatient (IN) | payer OTHER ==
[~2018-01-19] VITALS: Ht 160 cm; Wt 60.1 kg
[~2018-01-19 22:42] MED LIST changes: +GABA-827 PO; +NAPR-685 PO
[2018-01-19] MEDS ORDERED: SODIUM CHLORIDE FLUSH 10ML SYR IVF ONE (23:00)
[2018-01-19] MEDS ORDERED: ZIPRASIDONE 20 MG INJ IM ONE ×2 (23:09→23:30)
[2018-01-19 23:26] LABS: BASOPHILS # (AUTO) 0.03 x10^3/uL (0-0.1); BASOPHILS % (AUTO) 0 % (0-1); EOSINOPHILS # (AUTO) 0.07 x10^3/uL (0-0.4); EOSINOPHILS % (AUTO) 1 % (1-7); LYMPHOCYTES # (AUTO) 1.88 x10^3/uL (1-3.4); LYMPHOCYTES % (AUTO) 23 % (22-44); MD NO; MEAN CORPUSCULAR HEMOGLOBIN 32.2 pg (27.5-34.5); MEAN CORPUSCULAR HGB CONC 33.4 g/dL (33.2-36.2); MEAN CORPUSCULAR VOLUME 96.3 fL (81-97); MONOCYTES # (AUTO) 1.04 x10^3/uL (0.2-0.8); MONOCYTES % (AUTO) 13 % (2-9); NEUTROPHILS # (AUTO) 5.04 x10^3/uL (1.8-6.8); NEUTROPHILS % (AUTO) 63 % (42-75); PLATELET COUNT 416 x10^3/uL (130-400); RED BLOOD COUNT 3.75 x10^6/uL (4.38-5.82); RED CELL DISTRIBUTION WIDTH 17.3 % (9.4-14.8)
[2018-01-19] MEDS ORDERED: PLEASE ENTER HEIGHT AND WEIGHT MC SCH (23:30)
[2018-01-19] MEDS ORDERED: LORazepam 2 MG/ML, 1ML IVPush ONE (23:30)
[2018-01-19 23:37] LABS: INTERNATIONAL NORMALIZED RATIO 1.06 (0.93-1.1); PROTHROMBIN TIME 11.2 Seconds (9.6-11.5)
[2018-01-19 23:38] LABS: ALANINE AMINOTRANSFERASE 13 U/L (12-78); ALBUMIN 3.4 g/dL (3.4-5.0); ANION GAP 11 mmol/L (5-15); CALCIUM 9.4 mg/dL (8.5-10.1); CHLORIDE 104 mmol/L (98-107); CREATININE 0.94 mg/dL (0.7-1.3)
[2018-01-19 23:41] LABS: ALKALINE PHOSPHATASE 68 U/L (45-117); BILIRUBIN,TOTAL 0.4 mg/dL (0.2-1.0); TOTAL PROTEIN 7.8 g/dL (6.4-8.2)
[2018-01-20 00:11] LABS: MICROSCOPIC NOT IND
[2018-01-20 00:15] LABS: CULTURE INDICATED? NO
[2018-01-20 00:31] LABS: AMPHETAMINE SCREEN, URINE Negative (Negative); BARBITURATE SCREEN, URINE Negative (Negative); BENZODIAZEPINE SCREEN, URINE Positive (Negative); CANNABINOID SCREEN, URINE Positive (Negative); COCAINE SCREEN, URINE Negative (Negative); METHADONE SCREEN, URINE Negative (Negative); OPIATE SCREEN, URINE Negative (Negative)
[2018-01-20] MEDS ORDERED: LORazepam 2 MG/ML, 1ML ONE (00:34)
[2018-01-20] MEDS ORDERED: ZIPRASIDONE 20 MG INJ IM ONE (01:00)
[2018-01-20 01:20] VITALS: BP 116/62
[2018-01-20] MEDS ORDERED: ACETAMINOPHEN 325 MG TABLET PO PRN (01:30)
[2018-01-20] MEDS ORDERED: POLYETHYLENE GLYCOL 17 GM PACKET PO PRN (01:30)
[2018-01-20] MEDS ORDERED: ONDANSETRON ODT 4 MG PO PRN (01:30)
[2018-01-20] MEDS ORDERED: hydrALAzine 20 MG/ML, 1ML IVPush PRN (01:30)
[2018-01-20] MEDS ORDERED: PROMETHAZINE 25 MG/ML, 1ML IM PRN (01:30)
[2018-01-20] MEDS ORDERED: LABETALOL 5MG/ML, 20ML IVPush PRN (01:30)
[2018-01-20] MEDS ORDERED: NAPROXEN 500 MG TABLET PO PRN (01:30)
[2018-01-20] MEDS ORDERED: BISACODYL 10 MG SUPP PR PRN (01:30)
[2018-01-20] MEDS ORDERED: ONDANSETRON 2MG/ML, 2ML IVPush PRN (01:30)
[2018-01-20 02:08] LABS: FREE T4 (FREE THYROXINE) 0.99 ng/dL (0.76-1.46); THYROID STIMULATING HORMONE 1.31 mIU/L (0.358-3.740)
[2018-01-20 02:14] LABS: HEMOGLOBIN A1C 4.9 % (4.2-6.3)
[2018-01-20] MEDS: HEPARIN 5,000 UNITS/ML, 1ML SQ SCH ×3 (02:45→17:30)
[2018-01-20] MEDS: SODIUM CHLORIDE 0.9% 1,000 ML IV SCH ×2 (02:45→15:29)
[2018-01-20] MEDS: ASPIRIN 325 MG TABLET EC PO SCH ×2 (05:04→18:00)
[2018-01-20 07:21] VITALS: BP 103/66
[2018-01-20] MEDS ORDERED: MAGNESIUM SULFATE PMX 2GM/50ML 50 ML IV ONE (07:30)
[2018-01-20] MEDS: SENNA/DOCUSATE TABLET PO SCH (09:40)
[2018-01-20] MEDS: FLUOXETINE HCL 20 MG CAPSULE PO SCH (09:40)
[2018-01-20] MEDS: CHOLECALCIFEROL 1,000 UNIT TABLET PO SCH (09:40)
[2018-01-20] MEDS: LEVETIRACETAM 500 MG TABLET PO SCH ×2 (09:40→19:37)
[2018-01-20] MEDS: ACETAMINOPHEN 500 MG TABLET PO SCH ×3 (09:41→19:38)
[2018-01-20 13:19] VITALS: BP 115/73
[2018-01-20 19:29] VITALS: BP 144/70
[2018-01-20] MEDS: DIVALPROEX 500 MG TAB.ER.24H PO SCH (22:40)
[2018-01-21] MEDS: GABAPENTIN 300 MG CAPSULE PO PRN ×2 (00:44→07:27)
[2018-01-21] MEDS: SODIUM CHLORIDE 0.9% 1,000 ML IV SCH (00:45)
[2018-01-21] MEDS: HEPARIN 5,000 UNITS/ML, 1ML SQ SCH ×3 (01:14→17:46)
[2018-01-21 01:37] VITALS: BP 125/82
[2018-01-21 05:24] LABS: BASOPHILS # (AUTO) 0.03 x10^3/uL (0-0.1); BASOPHILS % (AUTO) 1 % (0-1); EOSINOPHILS % (AUTO) 2 % (1-7); LYMPHOCYTES # (AUTO) 2.51 x10^3/uL (1-3.4); LYMPHOCYTES % (AUTO) 46 % (22-44); MD NO; MEAN CORPUSCULAR HEMOGLOBIN 31.7 pg (27.5-34.5); MEAN CORPUSCULAR HGB CONC 32.8 g/dL (33.2-36.2); MEAN CORPUSCULAR VOLUME 96.5 fL (81-97); MEAN PLATELET VOLUME 7.9 fL (7.4-10.4); MONOCYTES # (AUTO) 0.94 x10^3/uL (0.2-0.8); MONOCYTES % (AUTO) 17 % (2-9); NEUTROPHILS # (AUTO) 1.87 x10^3/uL (1.8-6.8); NEUTROPHILS % (AUTO) 34 % (42-75); PLATELET COUNT 356 x10^3/uL (130-400); RED BLOOD COUNT 3.14 x10^6/uL (4.38-5.82); RED CELL DISTRIBUTION WIDTH 17.6 % (9.4-14.8)
[2018-01-21 05:36] LABS: ALBUMIN 2.6 g/dL (3.4-5.0); ANION GAP 10 mmol/L (5-15); CALCIUM 8.3 mg/dL (8.5-10.1); CHLORIDE 115 mmol/L (98-107)
[2018-01-21 05:52] LABS: CREATININE 0.64 mg/dL (0.7-1.3)
[2018-01-21 05:53] LABS: ALANINE AMINOTRANSFERASE 10 U/L (12-78); ALKALINE PHOSPHATASE 50 U/L (45-117); BILIRUBIN,TOTAL 0.3 mg/dL (0.2-1.0); CHOL/HDL RATIO 4.4; CHOLESTEROL, TOTAL 141 mg/dL (140-239); HDL CHOL % 23 % (26-37); HDL CHOLESTEROL (DIRECT) 32 mg/dL (40-60); LDL CHOLESTEROL,CALCULATED 66 mg/dL (54-169); LDL/HDL RATIO 2.1 (0.5-3.0); TOTAL PROTEIN 5.9 g/dL (6.4-8.2); TRIGLYCERIDES 213 mg/dL (50-200); VLDL CHOLESTEROL 43 mg/dL (0-25)
[2018-01-21] MEDS: ASPIRIN 325 MG TABLET EC PO SCH ×2 (06:14→17:57)
[2018-01-21] MEDS: KETOROLAC 30 MG/1 ML IM PRN ×2 (09:03→16:01)
[2018-01-21] MEDS: SENNA/DOCUSATE TABLET PO SCH (09:04)
[2018-01-21] MEDS: FLUOXETINE HCL 20 MG CAPSULE PO SCH (09:04)
[2018-01-21] MEDS: METHOCARBAMOL 500 MG TABLET PO PRN ×2 (09:04→13:18)
[2018-01-21] MEDS: CHOLECALCIFEROL 1,000 UNIT TABLET PO SCH (09:04)
[2018-01-21 09:56] VITALS: BP 148/95
[2018-01-21] MEDS: LEVETIRACETAM 500 MG TABLET PO SCH ×2 (10:44→19:54)
[2018-01-21] MEDS: GABAPENTIN 100 MG CAPSULE PO SCH ×3 (10:44→19:54)
[2018-01-21 13:24] VITALS: BP 121/74
[2018-01-21 18:52] VITALS: BP 106/70
[2018-01-21] MEDS: ACETAMINOPHEN 500 MG TABLET PO SCH (19:54)
[2018-01-21] MEDS: DIVALPROEX 500 MG TAB.ER.24H PO SCH (19:54)
[2018-01-22 00:39] VITALS: BP 109/77
[2018-01-22] MEDS: METHOCARBAMOL 500 MG TABLET PO PRN (00:53)
[2018-01-22] MEDS: HEPARIN 5,000 UNITS/ML, 1ML SQ SCH ×2 (00:54→09:05)
[2018-01-22] MEDS: GABAPENTIN 100 MG CAPSULE PO SCH ×2 (05:39→11:35)
[2018-01-22] MEDS: ASPIRIN 325 MG TABLET EC PO SCH (05:39)
[2018-01-22 07:05] VITALS: BP 103/69
[2018-01-22] MEDS: CHOLECALCIFEROL 1,000 UNIT TABLET PO SCH (09:05)
[2018-01-22] MEDS: SENNA/DOCUSATE TABLET PO SCH (09:05)
[2018-01-22] MEDS: LEVETIRACETAM 500 MG TABLET PO SCH (09:05)
[2018-01-22] MEDS: FLUOXETINE HCL 20 MG CAPSULE PO SCH (09:05)
[2018-01-22] MEDS: ACETAMINOPHEN 500 MG TABLET PO SCH (09:05)
== END 2018-01-22 12:45 | disposition left against medical advice (07) | DRG 91 ==
LOC: ED 23:05 → EDIP 01-20 00:25 → 4WST 01-20 01:16
PROVIDERS: ADMIT Internal Medicine; ATTEND Internal Medicine
PROC: 0T9B70Z Drainage of Bladder with Drainage Device, Via Natural or Artificial Opening (ICD-10-PCS; principal; 2018-01-19)
DX: G92 Toxic encephalopathy (principal); E43 Unspecified severe protein-calorie malnutrition; J44.9 Chronic obstructive pulmonary disease, unspecified; G89.29 Other chronic pain; G40.909 Epilepsy, unspecified, not intractable, without status epilepticus; F43.10 Post-traumatic stress disorder, unspecified; F32.9 Major depressive disorder, single episode, unspecified; F10.20 Alcohol dependence, uncomplicated; F17.210 Nicotine dependence, cigarettes, uncomplicated; F12.10 Cannabis abuse, uncomplicated; D64.9 Anemia, unspecified; Z51.5 Encounter for palliative care; Z53.21 Procedure and treatment not carried out due to patient leaving prior to being seen by health care provider; E55.9 Vitamin D deficiency, unspecified; Z83.3 Family history of diabetes mellitus; Z81.1 Family history of alcohol abuse and dependence; Z99.3 Dependence on wheelchair; Z87.440 Personal history of urinary (tract) infections; Z80.1 Family history of malignant neoplasm of trachea, bronchus and lung; Y92.89 Other specified places as the place of occurrence of the external cause; Z68.23 Body mass index [BMI] 23.0-23.9, adult; T40.7X5A Adverse effect of cannabis (derivatives), initial encounter; T50.905A Adverse effect of unspecified drugs, medicaments and biological substances, initial encounter
CPT/HCPCS: 36415; 70450; 71045; 72072; 72110; 80053; 80061; 80164; 80307; 81003; 82140; 82962; 83036; 83605; 83735; 84145; 84439; 84443; 85025; 85610; 85730; 87040; 93005; 96372; 96374; G0378; J1644; J1885; J3486; J2060; J3475; J7030

== ENCOUNTER 2018-01-29 12:55 | Observation (INO) | payer OTHER ==
[~2018-01-29] VITALS: Ht 166.4 cm; Wt 60.6 kg
[2018-01-29] MEDS ORDERED: SODIUM CHLORIDE FLUSH 10ML SYR IVF ONE (14:00)
[2018-01-29] MEDS ORDERED: MAGNESIUM SULFATE 1 GM, THIAMINE 100 MG, FOLIC ACID 1 MG, MVI ADULT 10 ML in SODIUM CHL... IV ONE (14:00)
[2018-01-29 14:03] LABS: MEAN CORPUSCULAR HEMOGLOBIN 31.9 pg (27.5-34.5); MEAN CORPUSCULAR HGB CONC 33.4 g/dL (33.2-36.2); MEAN CORPUSCULAR VOLUME 95.4 fL (81-97); MEAN PLATELET VOLUME 7.9 fL (7.4-10.4); PLATELET COUNT 280 x10^3/uL (130-400); RED BLOOD COUNT 3.78 x10^6/uL (4.38-5.82); RED CELL DISTRIBUTION WIDTH 17.2 % (9.4-14.8)
[2018-01-29 14:14] LABS: ALBUMIN 3.7 g/dL (3.4-5.0); ANION GAP 6 mmol/L (5-15); CHLORIDE 106 mmol/L (98-107)
[2018-01-29 14:18] LABS: ALANINE AMINOTRANSFERASE 9 U/L (12-78); ALKALINE PHOSPHATASE 73 U/L (45-117); BILIRUBIN,TOTAL 0.3 mg/dL (0.2-1.0); CREATININE 0.98 mg/dL (0.7-1.3); TOTAL PROTEIN 7.4 g/dL (6.4-8.2)
[2018-01-29 14:36] LABS: BASOPHILS # (AUTO) 0.03 x10^3/uL (0-0.1); BASOPHILS % (AUTO) 1 % (0-1); EOSINOPHILS # (AUTO) 0.18 x10^3/uL (0-0.4); EOSINOPHILS % (AUTO) 3 % (1-7); LYMPHOCYTES # (AUTO) 3.16 x10^3/uL (1-3.4); LYMPHOCYTES % (AUTO) 57 % (22-44); MD SCAN; MONOCYTES # (AUTO) 0.71 x10^3/uL (0.2-0.8); MONOCYTES % (AUTO) 13 % (2-9); NEUTROPHILS # (AUTO) 1.42 x10^3/uL (1.8-6.8); NEUTROPHILS % (AUTO) 26 % (42-75)
[2018-01-29 14:44] LABS: ACETONE, SERUM Negative (Negative)
[2018-01-29] MEDS ORDERED: PRAZ2CAP2 PO (15:39)
[2018-01-29] MEDS ORDERED: GABA300C10 PO (15:40)
[2018-01-29] MEDS ORDERED: POLYETHYLENE GLYCOL 17 GM PACKET PO PRN (16:00)
[2018-01-29] MEDS ORDERED: ONDANSETRON 2MG/ML, 2ML IVPush PRN (16:00)
[2018-01-29] MEDS ORDERED: LABETALOL 5MG/ML, 20ML IVPush PRN (16:00)
[2018-01-29] MEDS ORDERED: ONDANSETRON ODT 4 MG PO PRN (16:00)
[2018-01-29] MEDS ORDERED: FLUO60TA PO (16:01)
[2018-01-29] MEDS ORDERED: POTA10CA PO (16:02)
[2018-01-29] MEDS ORDERED: ALEN70TA5 PO (16:05)
[2018-01-29] MEDS ORDERED: CYAN500T2 PO (16:05)
[2018-01-29 16:43] VITALS: BP 111/75
[2018-01-29] MEDS ORDERED: NICOTINE 21 MG/24 HR PATCH.TD24 TD SCH (17:30)
[2018-01-29] MEDS: ACETAMINOPHEN 325 MG TABLET PO SCH ×2 (17:30→22:16)
[2018-01-29] MEDS ORDERED: ALENDRONATE 70 MG TABLET PO SCH (17:30)
[2018-01-29 19:57] VITALS: BP 108/68
[2018-01-29] MEDS: GABAPENTIN 400 MG CAPSULE PO SCH (20:27)
[2018-01-29] MEDS: LEVETIRACETAM 500 MG TABLET PO SCH (20:27)
[2018-01-29] MEDS ORDERED: PRAZOSIN 2 MG CAPSULE PO SCH (21:00)
[2018-01-30] MEDS: ACETAMINOPHEN 325 MG TABLET PO SCH ×3 (01:30→09:55)
[2018-01-30 01:44] VITALS: BP 101/67
[2018-01-30 05:38] LABS: MICROSCOPIC INDICATED
[2018-01-30 05:46] LABS: CULTURE INDICATED? YES
[2018-01-30 06:14] LABS: CHLORIDE 109 mmol/L (98-107)
[2018-01-30 06:18] LABS: BASOPHILS # (AUTO) 0.03 x10^3/uL (0-0.1); BASOPHILS % (AUTO) 1 % (0-1); EOSINOPHILS # (AUTO) 0.32 x10^3/uL (0-0.4); EOSINOPHILS % (AUTO) 6 % (1-7); LYMPHOCYTES # (AUTO) 2.43 x10^3/uL (1-3.4); LYMPHOCYTES % (AUTO) 41 % (22-44); MD NO; MEAN CORPUSCULAR HEMOGLOBIN 31.7 pg (27.5-34.5); MEAN CORPUSCULAR HGB CONC 33.5 g/dL (33.2-36.2); MEAN CORPUSCULAR VOLUME 94.6 fL (81-97); MONOCYTES # (AUTO) 0.84 x10^3/uL (0.2-0.8); MONOCYTES % (AUTO) 14 % (2-9); NEUTROPHILS # (AUTO) 2.27 x10^3/uL (1.8-6.8); NEUTROPHILS % (AUTO) 39 % (42-75); PLATELET COUNT 240 x10^3/uL (130-400); RED BLOOD COUNT 3.19 x10^6/uL (4.38-5.82); RED CELL DISTRIBUTION WIDTH 17.3 % (9.4-14.8)
[2018-01-30 06:19] LABS: ALANINE AMINOTRANSFERASE 9 U/L (12-78); ALKALINE PHOSPHATASE 58 U/L (45-117); ANION GAP 5 mmol/L (5-15); BILIRUBIN,TOTAL 0.2 mg/dL (0.2-1.0); CALCIUM 8.3 mg/dL (8.5-10.1); CREATININE 0.56 mg/dL (0.7-1.3); TOTAL PROTEIN 6.1 g/dL (6.4-8.2)
[2018-01-30 07:25] VITALS: BP 96/63
[2018-01-30] MEDS ORDERED: FLUOXETINE HCL 20 MG CAPSULE PO SCH (09:00)
[2018-01-30] MEDS ORDERED: CYANOCOBALAMIN 1,000 MCG TABLET PO SCH (09:00)
[2018-01-30] MEDS ORDERED: SENNA/DOCUSATE TABLET PO SCH (09:00)
[2018-01-30] MEDS: LEVETIRACETAM 500 MG TABLET PO SCH (09:54)
[2018-01-30] MEDS: GABAPENTIN 400 MG CAPSULE PO SCH (09:54)
[2018-01-30 13:31] VITALS: BP 104/66
== END 2018-01-30 14:10 | disposition left against medical advice (07) ==
LOC: ED 15:20 → EDIP 16:01 → 3NE 16:15
PROVIDERS: ADMIT Hospitalist; ATTEND Hospitalist
DX: R62.7 Adult failure to thrive (principal); J44.9 Chronic obstructive pulmonary disease, unspecified; M25.561 Pain in right knee; G40.909 Epilepsy, unspecified, not intractable, without status epilepticus; F17.200 Nicotine dependence, unspecified, uncomplicated; F10.20 Alcohol dependence, uncomplicated; F32.9 Major depressive disorder, single episode, unspecified; G25.0 Essential tremor; E55.9 Vitamin D deficiency, unspecified; T67.1XXA Heat syncope, initial encounter; T67.5XXA Heat exhaustion, unspecified, initial encounter; M81.0 Age-related osteoporosis without current pathological fracture; Z66 Do not resuscitate; Z80.1 Family history of malignant neoplasm of trachea, bronchus and lung; Z83.3 Family history of diabetes mellitus; G93.41 Metabolic encephalopathy; I10 Essential (primary) hypertension; F43.10 Post-traumatic stress disorder, unspecified; R53.1 Weakness
CPT/HCPCS: 36415; 71045; 80053; 80307; 81001; 82010; 83735; 84100; 85025; 87040; 87077; 87086; 87186; 92523; 93005; 96365; 96366; 99284; G0378; G8978; G8979; G8980; J3411; J3475; J7030

== ENCOUNTER 2018-02-01 19:31 | Inpatient (IN) | payer OTHER ==
[~2018-02-01] VITALS: Ht 167.6 cm; Wt 61.1 kg
[~2018-02-01 19:31] MED LIST changes: +ALEN70TA5 PO; +CYAN500T2 PO; +FLUO60TA PO; +POTA10CA PO; +PRAZ2CAP2 PO
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
--- NOTE | 2018-02-01 19:50 | NUR ---
TO CT SCAN MONITORED BY PROCESS OPERATOR
[2018-02-01] MEDS ORDERED: NALOXONE 0.4 MG/ML, 1ML IVPush ONE (20:00)
--- NOTE | 2018-02-01 20:07 | NUR ---
REPORTS UNABLE TO FILL KEP[facility] THEREFORE HE HAS NOT BEEN TAKING FOR 7 DAYS
[2018-02-01 20:09] LABS: INTERNATIONAL NORMALIZED RATIO 1.08 (0.93-1.1); PROTHROMBIN TIME 11.4 Seconds (9.6-11.5)
[2018-02-01 20:10] LABS: ALANINE AMINOTRANSFERASE 11 U/L (12-78); ALBUMIN 3.7 g/dL (3.4-5.0); ANION GAP 7 mmol/L (5-15); CALCIUM 8.9 mg/dL (8.5-10.1); CHLORIDE 104 mmol/L (98-107); CREATININE 0.85 mg/dL (0.7-1.3)
[2018-02-01 20:14] LABS: ALKALINE PHOSPHATASE 67 U/L (45-117); BILIRUBIN,TOTAL 0.5 mg/dL (0.2-1.0); TOTAL PROTEIN 7.2 g/dL (6.4-8.2); TROPONIN I < 0.015 ng/mL (0.000-0.045)
--- NOTE | 2018-02-01 20:15 | NUR ---
SPOKE TO PROVIDER IN REGARD TO NARCAN/URINE ANALYSIS. TO DEFER NARCAN/STRAIGHT CATH FOR URINE (BASED ON MENTATION) AT THIS TIME
[2018-02-01 20:18] LABS: BASOPHILS # (AUTO) 0.05 x10^3/uL (0-0.1); BASOPHILS % (AUTO) 1 % (0-1); EOSINOPHILS # (AUTO) 0.14 x10^3/uL (0-0.4); EOSINOPHILS % (AUTO) 2 % (1-7); LYMPHOCYTES # (AUTO) 2.27 x10^3/uL (1-3.4); LYMPHOCYTES % (AUTO) 32 % (22-44); MD NO; MEAN CORPUSCULAR HEMOGLOBIN 31.2 pg (27.5-34.5); MEAN CORPUSCULAR HGB CONC 33.5 g/dL (33.2-36.2); MEAN CORPUSCULAR VOLUME 93.2 fL (81-97); MEAN PLATELET VOLUME 8.1 fL (7.4-10.4); MONOCYTES # (AUTO) 1.32 x10^3/uL (0.2-0.8); MONOCYTES % (AUTO) 19 % (2-9); NEUTROPHILS # (AUTO) 3.27 x10^3/uL (1.8-6.8); NEUTROPHILS % (AUTO) 46 % (42-75); PLATELET COUNT 203 x10^3/uL (130-400); RED BLOOD COUNT 2.93 x10^6/uL (4.38-5.82); RED CELL DISTRIBUTION WIDTH 16.9 % (9.4-14.8)
--- NOTE | 2018-02-01 20:49 | NUR ---
PATIENT REMAINS QUITE NON-RESPONSIVE (EXCEPT TO AGGRESIVE STIMULI), ALSO CONTINUES TO PROTECT AIRWAY W/OUT DIFFICULTY. ON MONITOR AND ROUNDED ON FREQUENTLY
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
--- NOTE | 2018-02-01 22:12 | NUR ---
REPORT TO JOSE MCCABE.
[2018-02-01 22:28] LABS: AMPHETAMINE SCREEN, URINE Negative (Negative); BARBITURATE SCREEN, URINE Negative (Negative); BENZODIAZEPINE SCREEN, URINE Positive (Negative); CANNABINOID SCREEN, URINE Positive (Negative); COCAINE SCREEN, URINE Negative (Negative); METHADONE SCREEN, URINE Negative (Negative); OPIATE SCREEN, URINE Negative (Negative)
[2018-02-01] MEDS ORDERED: ONDANSETRON 2MG/ML, 2ML IVPush PRN (22:30)
[2018-02-01 22:33] LABS: MICROSCOPIC AUTO
[2018-02-01 22:37] LABS: CULTURE INDICATED? NO
[2018-02-01 22:40] VITALS: BP 113/65
[2018-02-01] MEDS ORDERED: ONDANSETRON ODT 4 MG PO PRN (23:00)
[2018-02-01] MEDS ORDERED: BISACODYL 10 MG SUPP PR PRN (23:00)
[2018-02-01] MEDS ORDERED: POLYETHYLENE GLYCOL 17 GM PACKET PO PRN (23:00)
[2018-02-01] MEDS: SODIUM CHLORIDE 0.9% 1,000 ML IV SCH (23:52)
[2018-02-02 01:43] VITALS: BP 106/69
[2018-02-02 06:02] LABS: CHLORIDE 111 mmol/L (98-107)
[2018-02-02 06:08] LABS: ALANINE AMINOTRANSFERASE 9 U/L (12-78); ALBUMIN 3.2 g/dL (3.4-5.0); ALKALINE PHOSPHATASE 64 U/L (45-117); ANION GAP 7 mmol/L (5-15); BILIRUBIN,TOTAL 0.5 mg/dL (0.2-1.0); CALCIUM 8.4 mg/dL (8.5-10.1); CREATININE 0.47 mg/dL (0.7-1.3); TOTAL PROTEIN 6.5 g/dL (6.4-8.2)
[2018-02-02 06:23] LABS: MD YES; MEAN CORPUSCULAR HEMOGLOBIN 31.5 pg (27.5-34.5); MEAN CORPUSCULAR HGB CONC 33.7 g/dL (33.2-36.2); MEAN CORPUSCULAR VOLUME 93.7 fL (81-97); MEAN PLATELET VOLUME 8.3 fL (7.4-10.4); PLATELET COUNT 186 x10^3/uL (130-400); RED BLOOD COUNT 2.98 x10^6/uL (4.38-5.82); RED CELL DISTRIBUTION WIDTH 16.9 % (9.4-14.8)
[2018-02-02 06:26] LABS: EOS#(MANUAL) 0.34 x10^3/uL (0.0-0.4); EOS% (MANUAL) 8 % (1-7); LYMPH#(MANUAL) 1.29 x10^3/uL (1-3.4); LYMPHS% (MANUAL) 30 % (22-44); MONOS#(MANUAL) 1.16 x10^3/uL (0.3-2.7); MONOS% (MANUAL) 27 % (2-9); SEG#(MANUAL) 1.51 x10^3/uL (1.8-6.8); SEGS% (MANUAL) 35 % (42-75)
[2018-02-02 06:29] LABS: ANISOCYTOSIS 1+; MICROCYTOSIS 1+
[2018-02-02] MEDS ORDERED: ALENDRONATE 70 MG TABLET PO SCH (06:30)
[2018-02-02 06:31] LABS: <PLATELET ESTIMATE> ADEQUATE; <PLT MORPHOLOGY> NORMAL PLT MORPH
[2018-02-02 07:55] VITALS: BP 92/59
[2018-02-02] MEDS ORDERED: SODIUM CHLORIDE 0.9%, 500ML IVBOLUS ONE (09:00)
[2018-02-02] MEDS: ASPIRIN 325 MG TABLET EC PO SCH ×2 (09:24→20:05)
[2018-02-02] MEDS: POTASSIUM CHLORIDE 10 MEQ TABLET.ER PO SCH (09:24)
[2018-02-02] MEDS: GABAPENTIN 400 MG CAPSULE PO SCH ×3 (09:24→20:04)
[2018-02-02] MEDS: LEVETIRACETAM 500 MG TABLET PO SCH ×2 (09:24→20:05)
[2018-02-02] MEDS: FLUOXETINE HCL 20 MG CAPSULE PO SCH (09:25)
[2018-02-02] MEDS: CYANOCOBALAMIN 1,000 MCG TABLET PO SCH (09:25)
[2018-02-02] MEDS: SENNA/DOCUSATE TABLET PO SCH (09:25)
[2018-02-02] MEDS: FUROSEMIDE 20 MG TABLET PO SCH (09:25)
[2018-02-02] MEDS: DIVALPROEX 500 MG TAB.ER.24H PO SCH ×2 (09:26→20:05)
[2018-02-02] MEDS: SODIUM CHLORIDE 0.9% 1,000 ML IV SCH ×2 (09:26→20:05)
[2018-02-02 14:00] VITALS: BP 100/60
[2018-02-02] MEDS: NAPROXEN 500 MG TABLET PO PRN (16:08)
[2018-02-02 19:55] VITALS: BP 102/69
[2018-02-02] MEDS: PRAZOSIN 2 MG CAPSULE PO SCH (20:05)
[2018-02-03 01:31] VITALS: BP 101/60
[2018-02-03] MEDS: SODIUM CHLORIDE 0.9% 1,000 ML IV SCH (06:08)
[2018-02-03 07:15] VITALS: BP 109/72
[2018-02-03] MEDS: DIVALPROEX 500 MG TAB.ER.24H PO SCH ×2 (08:36→21:01)
[2018-02-03] MEDS: FLUOXETINE HCL 20 MG CAPSULE PO SCH (08:36)
[2018-02-03] MEDS: LEVETIRACETAM 500 MG TABLET PO SCH ×2 (08:36→21:00)
[2018-02-03] MEDS: SENNA/DOCUSATE TABLET PO SCH (08:37)
[2018-02-03] MEDS: GABAPENTIN 400 MG CAPSULE PO SCH ×3 (08:37→21:01)
[2018-02-03] MEDS: POTASSIUM CHLORIDE 10 MEQ TABLET.ER PO SCH (08:37)
[2018-02-03] MEDS: ASPIRIN 325 MG TABLET EC PO SCH ×2 (08:37→21:01)
[2018-02-03] MEDS: CYANOCOBALAMIN 1,000 MCG TABLET PO SCH (08:38)
[2018-02-03] MEDS: FUROSEMIDE 20 MG TABLET PO SCH (08:38)
[2018-02-03 12:43] VITALS: BP 119/79
[2018-02-03] MEDS: NAPROXEN 500 MG TABLET PO PRN (15:53)
[2018-02-03] MEDS: HYDROcodone/APAP 5/325 TABLET PO PRN (17:48)
[2018-02-03 19:26] VITALS: BP 105/69
[2018-02-03] MEDS: PRAZOSIN 2 MG CAPSULE PO SCH (21:01)
[2018-02-04] MEDS: SODIUM CHLORIDE 0.9% 1,000 ML IV SCH ×3 (00:40→21:39)
[2018-02-04 01:15] VITALS: BP 112/74
[2018-02-04 05:17] LABS: INTERNATIONAL NORMALIZED RATIO 1.1 (0.93-1.1); PROTHROMBIN TIME 11.6 Seconds (9.6-11.5)
[2018-02-04 05:23] LABS: ANION GAP 8 mmol/L (5-15); CALCIUM 7.9 mg/dL (8.5-10.1); CHLORIDE 107 mmol/L (98-107)
[2018-02-04 05:24] LABS: CREATININE 0.68 mg/dL (0.7-1.3)
[2018-02-04 05:44] LABS: BASOPHILS # (AUTO) 0.03 x10^3/uL (0-0.1); BASOPHILS % (AUTO) 1 % (0-1); EOSINOPHILS # (AUTO) 0.32 x10^3/uL (0-0.4); EOSINOPHILS % (AUTO) 5 % (1-7); LYMPHOCYTES # (AUTO) 2.76 x10^3/uL (1-3.4); LYMPHOCYTES % (AUTO) 45 % (22-44); MD NO; MEAN CORPUSCULAR HEMOGLOBIN 31.5 pg (27.5-34.5); MEAN CORPUSCULAR HGB CONC 33.5 g/dL (33.2-36.2); MEAN CORPUSCULAR VOLUME 94.1 fL (81-97); MEAN PLATELET VOLUME 8.2 fL (7.4-10.4); MONOCYTES % (AUTO) 13 % (2-9); NEUTROPHILS # (AUTO) 2.26 x10^3/uL (1.8-6.8); NEUTROPHILS % (AUTO) 37 % (42-75); PLATELET COUNT 214 x10^3/uL (130-400); RED BLOOD COUNT 2.88 x10^6/uL (4.38-5.82); RED CELL DISTRIBUTION WIDTH 17.4 % (9.4-14.8)
[2018-02-04 07:23] VITALS: BP 92/60
[2018-02-04] MEDS: SENNA/DOCUSATE TABLET PO SCH (09:00)
[2018-02-04] MEDS: LEVETIRACETAM 500 MG TABLET PO SCH ×2 (09:48→21:39)
[2018-02-04] MEDS: FUROSEMIDE 20 MG TABLET PO SCH (09:49)
[2018-02-04] MEDS: POTASSIUM CHLORIDE 10 MEQ TABLET.ER PO SCH (09:49)
[2018-02-04] MEDS: ASPIRIN 325 MG TABLET EC PO SCH ×2 (09:49→21:38)
[2018-02-04] MEDS: GABAPENTIN 400 MG CAPSULE PO SCH ×3 (09:49→21:38)
[2018-02-04] MEDS: DIVALPROEX 500 MG TAB.ER.24H PO SCH ×2 (09:49→21:38)
[2018-02-04] MEDS: FLUOXETINE HCL 20 MG CAPSULE PO SCH (09:50)
[2018-02-04] MEDS: HYDROcodone/APAP 5/325 TABLET PO PRN ×2 (09:54→21:39)
[2018-02-04] MEDS: CYANOCOBALAMIN 1,000 MCG TABLET PO SCH (09:54)
[2018-02-04 12:10] VITALS: BP 112/72
[2018-02-04 19:31] VITALS: BP 97/61
[2018-02-04] MEDS: PRAZOSIN 2 MG CAPSULE PO SCH (21:38)
[2018-02-05 00:20] VITALS: BP 99/68
[2018-02-05] MEDS: SODIUM CHLORIDE 0.9% 1,000 ML IV SCH (06:07)
[2018-02-05 06:29] VITALS: BP 114/71
[2018-02-05] MEDS: CYANOCOBALAMIN 1,000 MCG TABLET PO SCH (09:00)
[2018-02-05] MEDS: SENNA/DOCUSATE TABLET PO SCH (09:00)
[2018-02-05] MEDS: LEVETIRACETAM 500 MG TABLET PO SCH (09:04)
[2018-02-05] MEDS: FUROSEMIDE 20 MG TABLET PO SCH (09:04)
[2018-02-05] MEDS: GABAPENTIN 400 MG CAPSULE PO SCH ×2 (09:04→17:14)
[2018-02-05] MEDS: FLUOXETINE HCL 20 MG CAPSULE PO SCH (09:04)
[2018-02-05] MEDS: ASPIRIN 325 MG TABLET EC PO SCH (09:05)
[2018-02-05] MEDS: DIVALPROEX 500 MG TAB.ER.24H PO SCH (09:05)
[2018-02-05] MEDS: POTASSIUM CHLORIDE 10 MEQ TABLET.ER PO SCH (09:05)
[2018-02-05 12:40] VITALS: BP 108/73
== END 2018-02-05 17:57 | disposition home health service (06) | DRG 917 ==
LOC: ED 19:50 → EDIP 22:11 → 4WST 22:37
PROVIDERS: ADMIT Internal Medicine; ATTEND Internal Medicine
PROC: 0T9B70Z Drainage of Bladder with Drainage Device, Via Natural or Artificial Opening (ICD-10-PCS; principal; 2018-02-01)
DX: T42.4X1A Poisoning by benzodiazepines, accidental (unintentional), initial encounter (principal); S72.141A Displaced intertrochanteric fracture of right femur, initial encounter for closed fracture; G92 Toxic encephalopathy; E43 Unspecified severe protein-calorie malnutrition; D64.9 Anemia, unspecified; Z68.21 Body mass index [BMI] 21.0-21.9, adult; E55.9 Vitamin D deficiency, unspecified; W18.39XA Other fall on same level, initial encounter; F10.20 Alcohol dependence, uncomplicated; F17.210 Nicotine dependence, cigarettes, uncomplicated; F32.9 Major depressive disorder, single episode, unspecified; G40.909 Epilepsy, unspecified, not intractable, without status epilepticus; I10 Essential (primary) hypertension; K74.60 Unspecified cirrhosis of liver; M81.0 Age-related osteoporosis without current pathological fracture; Z66 Do not resuscitate; Z80.1 Family history of malignant neoplasm of trachea, bronchus and lung; Z83.3 Family history of diabetes mellitus; Z99.3 Dependence on wheelchair; Y93.89 Activity, other specified; Y92.89 Other specified places as the place of occurrence of the external cause; Y99.8 Other external cause status
CPT/HCPCS: 36415; 70450; 71045; 80048; 80053; 80307; 81001; 82140; 84484; 85025; 85610; 85730; 93005; 99285; G0378; J7030; J7040